=== PATIENT | female | born 1945 | race Caucasian/White ===

== ENCOUNTER 2022-07-03 09:59 | Inpatient (IN) | payer OTHER, MEDICAID ==
[2022-07-03] VITALS (13 sets, daily range): BP systolic 40–163; BP diastolic 19–78
[~2022-07-03] VITALS: Ht 157.5 cm; Wt 62.1 kg
[~2022-07-03 09:59] MED LIST: ETOMIDATE 20 MG/10 ML VIAL IVP ONE; ROCURONIUM 50 MG/5 ML VIAL IV ONE
--- NOTE | 2022-07-03 10:00 | NUR ---
1954 [facility] TO ER BED 10 Addendum: 07/03/22 at 1407 by MEDDM [id number] [facility] TO ER BED 10
--- NOTE | 2022-07-03 10:00 | NUR ---
Patient being evaluated by physician at bedside.
--- NOTE | 2022-07-03 10:04 | NUR ---
77 y/o female biba from [facility], pt had gcs 3 upon amr arrival, pt has 3L removed for dialysis with completion. unknown dates for dialysis. pt here for aloc and respiratory distress, intial call, pt was on 6L NC 100%, amr called back stating they were starting BVM 97% for dyspnea. skin is pink/warm/dry, skin intact. a&o x0, normally a&ox4 per amr, does not ambulate at this time. patient positioned for comfort. hob elevated. bed down. ermd made aware of pt. pmh: dm2, renal dialysis nka
[2022-07-03] MEDS ORDERED: ROCURONIUM 50 MG/5 ML VIAL IV ONE (10:05)
[2022-07-03] MEDS ORDERED: ETOMIDATE 20 MG/10 ML VIAL IVP ONE (10:05)
--- NOTE | 2022-07-03 10:05 | NUR ---
verbal order of rocuronium 100mg and 20g etomidate ivp per marcello blue md, intubation 7.5 size, intial 25 lip.
[2022-07-03] MEDS ORDERED: NOREPINEPHRINE 4 MG/4 ML VIAL IV ONE (10:14)
[2022-07-03] MEDS ORDERED: NOREPINEPHRINE 4 MG in DEXTROSE 5% 250 ML IV ONE (10:20)
[2022-07-03] MEDS ORDERED: VANCOMYCIN 1,000 MG in DEXTROSE 5% 250 ML IV ONE (10:20)
[2022-07-03] MEDS ORDERED: PIPERACILLIN/TAZOBACTAM 3.375 GM in DEXTROSE 5% 50 ML IV ONE (10:20)
--- NOTE | 2022-07-03 10:30 | NUR ---
urinary cath placed, no urine output, unknown if pt still makes urine
--- NOTE | 2022-07-03 10:45 | NUR ---
ET TUBE WAS PULLED BACK 22CM @ LIP. CONFIRMED WITH XRAY, 2.63 ABOVE THE ALEKSANDER.
[2022-07-03 10:48] LABS: BASOPHILS % (AUTO) 0.1 % (0.0-2.0); EOSINOPHILS # (AUTO) 0.1 K/uL (0-0.4); EOSINOPHILS % (AUTO) 0.7 % (0.0-4.0); HEMATOCRIT 37.2 % (36-48); HEMOGLOBIN 11.8 g/dL (12.0-16.0); LYMPHOCYTES # (AUTO) 3.6 K/uL (2.5-16.5); LYMPHOCYTES % (AUTO) 29.2 % (20.5-51.1); MEAN CORPUSCULAR HEMOGLOBIN 29 pg (27-31); MEAN CORPUSCULAR HGB CONC 32 g/dL (33-37); MEAN CORPUSCULAR VOLUME 91.7 fL (80-94); MONOCYTES # (AUTO) 0.8 K/uL (0.8-1.0); MONOCYTES % (AUTO) 6.5 % (1.7-9.3); NEUTROPHILS # (AUTO) 7.8 K/uL (1.8-7.7); NEUTROPHILS % (AUTO) 63.5 % (42.2-75.2); PLATELET COUNT (AUTO) 160 K/uL (140-450); RED BLOOD CELL COUNT(AUTO) 4.06 MIL/uL (4.20-5.40); RED CELL DISTRIBUTION WIDTH 15.3 % (11.6-13.7); WHITE BLOOD COUNT (AUTO) 12.4 K/uL (4.8-10.8)
[2022-07-03 10:59] LABS: PROTHROMBIN TIME 9.8 secs (10.8-13.4)
[2022-07-03 11:03] LABS: ALBUMIN 2.3 g/dL (3.4-5.0); ANION GAP 16.4 (8-16); ASPARTATE AMINOTRANSFERASE 18 U/L (15-37); CARBON DIOXIDE 25.9 mmol/L (21-32); CHLORIDE 99 mmol/L (98-107); GLUCOSE 194 mg/dL (74-106); POTASSIUM 4.3 mmol/L (3.5-5.1); SODIUM SERUM 137 mmol/L (136-145); TOTAL BILIRUBIN 0.4 mg/dL (0.0-1.0); UREA NITROGEN, BLOOD 28 mg/dL (7-18)
[2022-07-03 11:14] LABS: CREATININE 5.4 mg/dL (0.6-1.3)
[2022-07-03] MEDS ORDERED: NACL 0.9% 1,000 ML IV ONE (11:20)
--- NOTE | 2022-07-03 11:34 | NUR ---
pt returned from ct
--- NOTE | 2022-07-03 11:38 | NUR ---
amparo speaking with daughter at bedside at this time
--- NOTE | 2022-07-03 11:46 | NUR ---
@1118 HELPED RN TO TRANSPORT PT TO AND FROM CT. PT TOLERAATED TRANSPORT WELL NO DISTRESS NOTED AT ANYTIME DURING TRANSPORT. @1130 PT WAS BACK IN ER BED 10 ON CURRENT SETTINGS AC/VC 450 16 +5 100%. PT HR 100 SPO2 100%. WILL CONTINUE TO MONITOR.
--- NOTE | 2022-07-03 12:06 | NUR ---
DECREASED PTS. FIO2 FROM 100% DOWN TO 50%. ALSO DECREASED PT'S FLOW FROM 45 TO 35 TO CORRECT I:E RATIO. PT'S SPO2 IS 100%.
[2022-07-03] MEDS ORDERED: PIPERACILLIN/TAZOBACTAM 3.375 GM VIAL IV ONE (13:25)
[2022-07-03] MEDS ORDERED: VANCOMYCIN 1,000 MG VIAL ONE (13:37)
[2022-07-03] MEDS ORDERED: DOCUSATE SODIUM 100 MG GELCAP PO PRN (14:20)
[2022-07-03] MEDS ORDERED: MORPHINE SULFATE 2 MG/ML SYR IVP PRN (14:20)
[2022-07-03] MEDS ORDERED: VANCOMYCIN PER PHARMACY MC PRN (14:20)
[2022-07-03] MEDS ORDERED: ONDANSETRON 4 MG/2 ML VIAL IVP PRN (14:20)
[2022-07-03] MEDS ORDERED: ZOLPIDEM 5 MG TAB PO PRN (14:20)
[2022-07-03] MEDS ORDERED: LORazepam 2 MG/ML VIAL IVP PRN (14:20)
[2022-07-03] MEDS ORDERED: MAG SULF 2000 MG/WATER PREMIX 50 ML IV PRN (14:20)
[2022-07-03] MEDS ORDERED: POTASSIUM CHLORIDE 10 MEQ TABER PO PRN (14:20)
--- NOTE | 2022-07-03 14:25 | NUR ---
DR. JANE PAGED FOR NEW PATIENT CONSULT.
--- NOTE | 2022-07-03 14:30 | NUR ---
PT ARRIVED TO ICU 5. SBAR REPORT RECEIVED FROM TIFFANI BALTAZAR, ALL CARES ASSUMED. ETT TO VENT, ACVC 14, 450, 50%, 5. NGT TO LEFT NARE CLAMPED. JOHNSON CATHETER DRAINING TO GRAVITY WITH NO OUTPUT. RIGHT FEMORAL TRIPLE LUMEN CENTRAL AND RIGHT AC. PT UNRESPONSIVE TO PAINFUL STIMULI.
--- NOTE | 2022-07-03 14:30 | NUR ---
DR. JANE RETURNED CALL. STATED HE SAW PATIENT IN ED. UPDATED ON STATUS. LEVOPHED CURRENTLY OFF. READ CT HEAD REPORT. NO NEW ORDERS.
--- NOTE | 2022-07-03 14:30 | NUR ---
PT. TRANSFERRED FROM ED AND ARRIVED IN ICU ON VENT W/ NURSE BEDSIDE @ 1430 NO DISTRESS NOTED. WILL CONTINUE TO MONITOR SPO2 100%
--- NOTE | 2022-07-03 14:48 | NUR ---
Patient will be admitted to care of Leeroy SÁNCHEZ. Admitted to ICU. Will go to room 105. Belongings list completed. Report to November
[2022-07-03] MEDS: BLOOD GLUCOSE MONITORING 1 DEV DEV FS SCH (18:27)
[2022-07-03] MEDS: INSULIN LISPRO SLIDING SCALE 100 UNITS/ML VIAL SUBQ PRN (18:30)
--- NOTE | 2022-07-03 19:26 | NUR ---
SBAR REPORT GIVEN TO GUZMAN BALTAZAR, ALL CARES ENDORSED.
--- NOTE | 2022-07-03 19:30 | NUR ---
RECEIVED PT. FROM DAY SHIFT, DELANEY STOUT. PT. WITH ALOC/UNRESPONSIVE. MOVE SLIGHTLY HER HEAD. PT. ON ETT TO VENT A/C VC RATE 14, FIO2 25%, TV 450 AND PEEP 5. BILATERAL LUNG SOUNDS CLEAR, DIMINISHED. IV SITE TO RIGHT FEMORAL TRIPLE LUMEN CENTRAL LINE RUNNING NS TKO. LEFT AV SHUNT, HEMODIALYSIS PT.ON SINUS RHYTHM. BOTH EYES WITH CATARACTS AND GLAUCOMA. RIGHT EYE WITH CALCIFIED. LEFT NGT CLAMPED ORDERED. ABDOMEN SOFT AND NON-TENDER. SKIN INTACT. JOHNSON CATHETER TO GRAVITY, IN PLACED AND NOTED NO URINE OUTPUT. ALL SAFETY MEASURES IN PLACE. REPOSITIONED AND PLACED IN COMFORTABLE POSITION. CALL LIGHT WITHIN REACH. NO S/S OF PAIN NOTED AT THIS TIME. WILL CONT. TO MONITOR.
--- NOTE | 2022-07-03 20:51 | NUR ---
DR. SANCHEZ, SYSTEMS ARCHITECT MADE ROUNDS TODAY AT 2046, SEEN PT. AT THE BEDSIDE AND TALKED TO THE FAMILY WHO HAPPENED TO BE AT THE BEDSIDE. NO NEW ORDER MADE. WILL ENDORSE TO THE NEXT SHIFT.
[2022-07-03] MEDS: PIPERACILLIN/TAZOBACTAM 2.25 GM in DEXTROSE 5% 50 ML IV SCH (21:20)
[2022-07-04] VITALS (30 sets, daily range): BP systolic 85–161; BP diastolic 38–66
[2022-07-04] MEDS: BLOOD GLUCOSE MONITORING 1 DEV DEV FS SCH ×4 (00:14→18:57)
[2022-07-04] MEDS: ACETAMINOPHEN 325 MG TAB PO PRN (03:09)
--- NOTE | 2022-07-04 03:09 | NUR ---
PT. OBSERVED TO HAVE A WARM SKIN AND TEMP. TAKEN WITH 101.1. GIVEN TYLENOL 650 MG PRN VIA NGT. PROVIDED COLD COMPRESS TOLERATED. WILL CONT. TO MONITOR.
[2022-07-04] MEDS: PIPERACILLIN/TAZOBACTAM 2.25 GM in DEXTROSE 5% 50 ML IV SCH ×3 (05:03→21:51)
[2022-07-04 06:22] LABS: CARBON DIOXIDE 22.1 mmol/L (21-32); CHLORIDE 102 mmol/L (98-107); GLUCOSE 142 mg/dL (74-106); POTASSIUM 4.1 mmol/L (3.5-5.1); SODIUM SERUM 138 mmol/L (136-145); UREA NITROGEN, BLOOD 30 mg/dL (7-18)
[2022-07-04 06:26] LABS: BASOPHILS % (AUTO) 0.1 % (0.0-2.0); HEMATOCRIT 35.4 % (36-48); HEMOGLOBIN 11.1 g/dL (12.0-16.0); LYMPHOCYTES # (AUTO) 2.1 K/uL (2.5-16.5); LYMPHOCYTES % (AUTO) 11.1 % (20.5-51.1); MEAN CORPUSCULAR HEMOGLOBIN 29 pg (27-31); MEAN CORPUSCULAR HGB CONC 31 g/dL (33-37); MEAN CORPUSCULAR VOLUME 92.4 fL (80-94); MONOCYTES # (AUTO) 1.5 K/uL (0.8-1.0); MONOCYTES % (AUTO) 7.8 % (1.7-9.3); NEUTROPHILS # (AUTO) 15.4 K/uL (1.8-7.7); PLATELET COUNT (AUTO) 182 K/uL (140-450); RED BLOOD CELL COUNT(AUTO) 3.84 MIL/uL (4.20-5.40); RED CELL DISTRIBUTION WIDTH 15.9 % (11.6-13.7)
[2022-07-04 06:29] LABS: CREATININE 5.7 mg/dL (0.6-1.3)
--- NOTE | 2022-07-04 07:15 | NUR ---
SBAR REPORT RECEIVED FROM GUZMAN BALTAZAR, ALL CARES ASSUMED. ETT TO VENT, ACPRVC 14, 450, 25%, 5. JOHNSON CATHETER DRAINING TO GRAVITY. NGT TO L NARE, CLAMPED. PT OPENING EYES, MOVING UPPER EXTREMITIES.BED IN LOW, LOCKED POSITION.
--- NOTE | 2022-07-04 07:19 | NUR ---
ENDORSED CARE, REPORT GIVEN TO DAY SHIFT DELANEY STOUT FOR CONTINUITY OF CARE.
--- NOTE | 2022-07-04 07:40 | NUR ---
RECEIVED PT ON PRVC 450,RR14,+5,25% FIO2. WHEELS ARE LOCKED, AMBUBAG AT BEDSIDE, PLUGGED INTO RED OUTLET, ALARMS ARE SET AND AUDIBLE. PT IS RESTING COMFORTABLY. WILL CONTINUE TO MONITOR.
[2022-07-04] MEDS: hydrALAZINE 10 MG TAB NG SCH (08:31)
[2022-07-04] MEDS: PANTOPRAZOLE 40 MG INJ VIAL IVP SCH (08:33)
--- NOTE | 2022-07-04 09:21 | NUR ---
PATIENT HAS BEEN SCREENED AND CATEGORIZED HIGH NUTRITION RISK. PATIENT WILL BE SEEN WITHIN 1-2 DAYS OF ADMISSION. 07/03/22-07/05/[address] BOTH FNS CONSULT AND REFERRAL RECEIVED FOR TUBE FEEDING.
--- NOTE | 2022-07-04 10:31 | NUR ---
CPAP TRIAL PER DR JANE. PT LASTED 20 MINS ON 05/26. PULLING GOOD VOLUMES AND FOLLOWS COMMANDS. PT TRIGGERED THE BACKUP SETTING OF PRVC 450,RR14,+5,25% DUE TO FATIGUE. PT RESTING COMFORTABLY. WILL CONTINUE TO MONITOR.
--- NOTE | 2022-07-04 10:39 | NUR ---
07/04/2022 RD INITIAL ASSESSMENT COMPLETED. PLEASE REFER TO NUTRITION ASSESSMENT UNDER CARE ACTIVITY FOR ESTIMATED NUTRITIONAL NEEDS. 1.WHEN/IF MEDICALLY APPROPRIATE, RECOMMEND NEPRO WITH CARBSTEADY WITH A GOAL RATE OF 45 ML/HR -FWF 240ML Q6H -START AT 10ML/HR AND INCREASE BY 10 ML Q4H PT TOLERATES UNTIL GOAL RATE IS REACHED -THIS WILL PROVIDE 1944 KCAL, 87 GRAMS PROTEIN, AND 785 ML FREE WATER, MEETING 100% OF ESTIMATED ENERGY NEEDS; ADEQUATE. 2.MONITOR NPO STATUS 3.RD TO FOLLOW-UP IN 2-3 DAYS PATIENT IS HIGH RISK. ESTELITA CLARK RD
[2022-07-04] MEDS: DEXMEDETOMIDINE HCL 400 MCG in NACL 0.9% 96 ML IV PRN (11:34)
[2022-07-04] MEDS: INSULIN LISPRO SLIDING SCALE 100 UNITS/ML VIAL SUBQ PRN (13:12)
--- NOTE | 2022-07-04 19:26 | NUR ---
SBAR REPORT GIVEN TO GUZMAN BALTAZAR, ALL CARES ENDORSED.
--- NOTE | 2022-07-04 19:33 | NUR ---
RECEIVED PT. FROM DAY SHIFT, DELANEY STOUT. PT. CONT. ON ETT TO VENT A/C PRVC RATE 14, TV 450, FIO2 75%, PEEP 8 AND O2 SAT 96%. PT. BILATERAL LUNGS DIMINSHED SOUNDS. EYES PERRL. ABDOMINAL SOUNDS HYPOACTIVE. RIGHT NARE NGT TO LOW INTERMIITENT SUCTION. SINUS TACHYCARDIA IN THE MONITOR. IV TO RIGHT ARM PICC LINE PATENT AND INTACT, NO S/S OF INFECTION. IVRUNNING PROPOFOL DRIP AT 30 MCG/KG/MIN, LEVOPHED 5 MCG/MIN. SKIN INTACT. ON BILATERAL SOFT WRIST RESTRAINT ORDERED. SITE NO S/S OF POOR CIRCULATION. NO S/S OF INJURY. BEDLOCK AND PLACED BED IN THE LOWEST HEIGHT. REPOSITION AND PLACED COMFORTABLY IN BED. NO S/S OF PAIN AT THIS TIME. WILL CONT. TO MONITOR. Addendum: 07/04/22 at 1943 by Reyna Cole RN CORRECTION: WRONG PT.
--- NOTE | 2022-07-04 19:43 | NUR ---
ENDORSED CARE, RECEIVED PT. FROM DAY SHIFT DELANEY STOUT. PT. AWAKE AND MOVE HER HEAD AT TIMES. WHEN ASKED, SEEMS LIKE SLIGHTLY UNDERSTAND SIMPLE COMMANDS. CONT. ON ETT TO VENT A/C VC RATE 14, TV 450, FIO2 25%, PEEP 5 AND O2 SAT 98%. BILATERAL LUNG SOUNDS DIMINSHED. BILATERAL EYES BLIND, CATARACTS AND GLAUCOMA WITH RIGHT EYE CALCIFIED. NGT TO LEFT NARE AND ORDERED, WILL BE STARTING NEPRO FEEDING WITH THE GOAL OF 45 ML/HR, 240 WATER FLUSH EVERY 6 HR. SINUS RHYTHM ON THE MONITOR. IV TO RIGHT FEMORAL TRIPLE LUMEN CENTRAL LINE CATHETER PATENT AND INTACT. INFUSING PRECEDEX 0.3 MCG/KG/HR, LEVOPHED DRIP 2 MCG/MIN AND NS TKO. JOHNSON CATHETER IN PLACED, DRAINING MINUTE URINE OUTPUT, URINE CLOUDY,CRAMY, STEVO WITH SEDIMENTS. SKIN INTACT. ON BILATERAL SOFT WRIST RESTRAINT. SITE NO S/S OF POOR CIRCULATION. NO S/S OF INJURY. PROVIDED SAFE AND QUIET ENVIRONMENT. NO S/S OF PAIN AND WILL CONT. TO MONITOR.
--- NOTE | 2022-07-04 20:00 | NUR ---
P. 2 DAUGHTERS CAME TO VISIT. ASKED QUESTIONS AND PROVIDED THEM UPDATE WITH PT. CURRENT CONDITION.
--- NOTE | 2022-07-04 20:25 | NUR ---
DR. SANCHEZ (MAKEUP ARTISTRY INSTRUCTOR) MADE ROUNDS AT 2023, CHECKED PT. AT THE BEDSIDE. NO NEW ORDER MADE.
[2022-07-05] VITALS (32 sets, daily range): BP systolic 94–169; BP diastolic 38–69
--- NOTE | 2022-07-05 00:17 | NUR ---
JOSEFINA, TREATMENT PLANT MECHANIC CALLED AND ASKED IF PT. WILL HAVE DIALYSIS TOMORROW. NOTIFIED HARVEST FIELD TICKETER THAT PER ORDERED BY DR. SANCHEZ, HEMODIALYSIS TOMORROW SCHEDULE AT 0700. I CALLED THE DAUGHTER POLO TO GET A CONSENT, ONLY VOICEMAIL AND I LEFT A MESSAGE. I ALSO CALLED CLAUDINE TO GET A CONSENT AND LEFT A MESSAGE TO TO THE VOICEMAIL WELL. WILL WAIT FOR THEIR CALL.
[2022-07-05] MEDS: INSULIN LISPRO SLIDING SCALE 100 UNITS/ML VIAL SUBQ PRN ×2 (00:34→12:47)
[2022-07-05] MEDS: BLOOD GLUCOSE MONITORING 1 DEV DEV FS SCH ×4 (00:37→17:29)
--- NOTE | 2022-07-05 04:20 | NUR ---
PT. DAUGHTER, CLAUDINE ORTIZ RETURNED MY CALL AND ABLE TO OBTAINED CONSENT FOR PT. HEMODIALYSIS. WITNESSED BY AURE, CHARGE NURSE RN. NO FURTHER QUESTION ASKED. WILL ENDORSE TO THE NEXT SHIFT.
--- NOTE | 2022-07-05 04:32 | NUR ---
LAB DRAWN CBC, BMP, MG, HEPATITIS COMPREHENSIVE PANEL. WILL ENDORSE TO NEXT SHIFT.
[2022-07-05] MEDS: PIPERACILLIN/TAZOBACTAM 2.25 GM in DEXTROSE 5% 50 ML IV SCH ×3 (05:01→21:18)
[2022-07-05] MEDS ORDERED: DEXMEDETOMIDINE HCL 100 MCG/ML 2 ML VIAL IV ONE (05:10)
[2022-07-05] MEDS: DEXMEDETOMIDINE HCL 400 MCG in NACL 0.9% 96 ML IV PRN (05:17)
[2022-07-05 05:57] LABS: EOSINOPHILS # (AUTO) 0.1 K/uL (0-0.4); EOSINOPHILS % (AUTO) 1.1 % (0.0-4.0); HEMATOCRIT 30.6 % (36-48); HEMOGLOBIN 9.7 g/dL (12.0-16.0); LYMPHOCYTES # (AUTO) 1.9 K/uL (2.5-16.5); LYMPHOCYTES % (AUTO) 15.9 % (20.5-51.1); MEAN CORPUSCULAR HEMOGLOBIN 29 pg (27-31); MEAN CORPUSCULAR HGB CONC 32 g/dL (33-37); MEAN CORPUSCULAR VOLUME 91.9 fL (80-94); MONOCYTES # (AUTO) 1.1 K/uL (0.8-1.0); MONOCYTES % (AUTO) 8.6 % (1.7-9.3); NEUTROPHILS # (AUTO) 9.1 K/uL (1.8-7.7); NEUTROPHILS % (AUTO) 74.4 % (42.2-75.2); PLATELET COUNT (AUTO) 138 K/uL (140-450); RED BLOOD CELL COUNT(AUTO) 3.34 MIL/uL (4.20-5.40); RED CELL DISTRIBUTION WIDTH 15.4 % (11.6-13.7); WHITE BLOOD COUNT (AUTO) 12.2 K/uL (4.8-10.8)
[2022-07-05 06:58] LABS: ANION GAP 18.1 (8-16); CARBON DIOXIDE 23.9 mmol/L (21-32); CHLORIDE 101 mmol/L (98-107); GLUCOSE 115 mg/dL (74-106); SODIUM SERUM 139 mmol/L (136-145); UREA NITROGEN, BLOOD 36 mg/dL (7-18)
[2022-07-05 07:02] LABS: CREATININE 6.9 mg/dL (0.6-1.3)
--- NOTE | 2022-07-05 07:30 | NUR ---
RECEIVED PT ON PRVC 450,RR14,+5,24%. VENT PLUGGED INTO RED OUTLET, WHEELS ARE LOCKED, AMBUBAG AT BEDSIDE, ALARMS ARE SET AND AUDIBLE. PT SATURATION IS 98%.
--- NOTE | 2022-07-05 07:33 | NUR ---
REPORT GIVEN TO DELANEY GLEASON FOR CONTINUITY OF CARE.
--- NOTE | 2022-07-05 08:56 | NUR ---
PT. WITH LOW DEWEY SCALE AT HIGH RISK, CONTINUE TO FOLLOW PRESSURE INJURY PREVENTION INTERVENTIONS. -POSITIONING: TURN AND REPOSITION PATIENT Q 2H OR SOONER USE PILLOWS TO KEEP BONY PROMINENCES FROM DIRECT CONTACT WITH SURFACES USE REPOSITIONING WEDGES TO PROVIDE 30-DEGREE ANGLE FOR SIDE LYING POSITIONS OFFLOADING OR FOAM DRESSING TO ALL TUBING TO PREVENT MEDICAL DEVICES RELATED PRESSURE INJURY -RE-EVALUATING AND MANAGING INCONTINENCE MONITOR SKIN CONDITION DURING POSITION CHANGE DO NOT MASSAGE REDNESS, BONY PROMINENCES FREQUENT KAREEM-CARE AND PROVIDE BARRIER CREAMS PRN IF SOILING MOISTURE CONTROL BY OFFER BED MILLS/URINAL /ABSORBENT PAD TO WICK AND HOLD MOISTURE KEEP SKIN DRY AND PROTECT FROM FRICTION -MANAGE FRICTION/SHEAR/MOBILITY KEEP HOB AT THE LOWEST LEVEL OF ELEVATION NO MORE THAN 30 DEGREE UNLESS OTHERWISE CONTRAINDICATED USE LIFT SHEET OR TRANSFER DEVICE TO MOVE PATIENT AND PREVENT LATERAL SHEER. PROTECT HEELS, ELBOWS BONY PROMINENCES WITH SKIN BERRIES OR FOAM DRESSING IF EXPOSED TO FRICTION OFFLOAD BILATERAL HEELS BY PLACING PILLOWS UNDER CALVES AT ALL TIMES, UNLESS OTHERWISE CONTRAINDICATED -PRESSURE REDISTRIBUTION SURFACE THERAPY GABRIELA ISOFLEX MATTRESS -NUTRITION: PLEASE FOLLOW RD RECOMMENDATIONS AND OFFER NUTRITION SUPPLEMENTS IF ORDERED. PLEASE CONTACT WOUND CARE NURSE FOR ANY QUESTION AND CHANGE OF WOUND CONDITION.
[2022-07-05] MEDS: hydrALAZINE 10 MG TAB NG SCH (10:00)
[2022-07-05] MEDS: PANTOPRAZOLE 40 MG INJ VIAL IVP SCH (10:07)
--- NOTE | 2022-07-05 10:54 | NUR ---
1030 CPAP TRAIL WITH PT. SETTING 07/26. SHE LASTED 10 MINUTES BEFORE TRIGGERING THE BACKUP SETTINGS OF PRVC 450,RR14,+5,24%. TRIED ANOTHER CPAP AND PT LASTED ANOTHER 10 MINUTES. SHE IS CURRENTLY ON PRVC 450. 14,+5, 24%. PT WAS RESPONSIVE AND FOLLOWS COMMANDS.SATURATION IS 99%. HER VOLUME RANGED FROM 500-900, RSBI OF 20. WILL CONTINUE TO MONITOR
--- NOTE | 2022-07-05 11:10 | NUR ---
DC PLANNIN YRS OLD FEMALE PATIENT WAS ADMITTED FROM HOME WITH A DX OF SEPSIS, RESP DISTRESS AND ALOC. PATIENT HAS A HX OF DM, ESRD ON HEMODIALYSIS . CXR SHOWED NO ACUTE CARDIOPULMONARY DISEASE .CT HEAD NEGATIVE. RAPID COVID TEST NEGATIVE. INTUBATED SEDATED ON PRECEDEX AND LEVOPHED DRIPS, IVF, IV ABX ZOSYN. CONSULTED WITH NEPHRO AND PULMO. DC PLAN PER PATIENT RESPOND TO THE TREATMENT. CM TO FOLLOW Addendum: 07/19/22 at 1608 by Elizabeth Reid RN DC PLANNING: FAXED THE ORDER TO [facility]. CM TO FOLLOW Addendum: 07/21/22 at 1141 by Elizabeth Reid RN DC PLANNING: CALLED [facility] [phone] SPOKE WITH SHO TOW MOTOR DRIVER STATED RECEIVED THE FAX ON TUESDAY BUT THEY ARE TOO BUSY AND DIDN'T REVIEW IT, PER SHO WILL CALL SOON ITS REVIEWED. CALLED [facility] BURT LEFT A MESSAGE. CALLED [facility] LEFT A MESSAGE FOR TOW MOTOR DRIVER. PATIENT IS ON RESTRAINTS NOTIFIED MD PAUL PAGE. CM TO FOLLOW. Addendum: 07/22/22 at 1429 by Elizabeth Reid RN DC PLANNING: CALLED [facility] [phone] SPOKE WITH OLIVER STATED IT'S STILL UNDER REVIEW, BECAUSE OF SHORT STAFF THE DON IS ON THE UNIT TAKING CARE OF THE PATIENT AND WILL CALL BACK ONCE ITS REVIEWED. CM TO FOLLOW Addendum: 07/22/22 at 1459 by Elizabeth Reid RN DC PLANNING: CALLED DR PA AND DISCUSSED THE DELAY FOR THE CHAIR TIME AT [facility] PER MD WILL CALL TO GET THE CHAIR TIME. CM TO FOLLOW Addendum: 07/29/22 at 1129 by Elizabeth Reid RN DC PLANNING: RECEIVED A CALL FROM RANDALL LAWS AT [facility] STATED THEY RECEIVED THE HUA FROM [facility] , THE ADMIN IS REVIEWING IT AND WILL CALL US BACK. ARRANGED OUT PATIENT DIALYSIS WITH [facility] THE CHAIR TIME WILL BE TUESDAY, TUESDAY AND TUESDAY 7AM. DC PLAN AWAITING FOR BED. CM TO FOLLOW. Addendum: 07/29/22 at 1622 by Elizabeth Reid RN DC PLANNING: RECEIVED A CALL FROM ABBE AT [facility] STATED THEY ARE UNABLE TO TAKE PATIENT BECAUSE THE [facility] ARE NOT COVERING THE DIALYSIS TRANSPORT AND THE ONLY WAY TO TELL FAMILY TO CHANGE THE PLAN TO MANAGED CARE SUCH [facility]. CALLED [facility] SPOKE WITH TAVIA STATED THEY CAN GIVE AUTH BUT THERE IS A CO PAY THAT THE FAMILY OR SUBACUTE CAN COVER. [facility]ED [facility] SPOKE WITH MIKE STATED HE DOESN'T TRANSPORT DIALYSIS PATIENT ANYMORE BECAUSE MEDICAL WONT COVER THE TRANSPORT. CALLED [facility] SPOKE WITH ELIZABET STATED THEY DON'T TAKE [place] PATIENT BECAUSE THEY HAVEN'T PAY THEM BEFORE AND TERMINATED THEIR CONTRACT. CALLED [facility] [phone] SPOKE WITH POLO STATED THEY HAVE 6 PATIENTS WAITING FOR THE BED HOWEVER [facility] WON'T COVER DIALYSIS AND PT HAS TO BE [facility] OR [facility]. CALLED [facility] [phone] STATED NO BED AVAILABLE CAN NOT TAKE [facility]. CM/SW MET PT'S FAMILY DISCUSSED THE ISSUES AND CONCERN. DAUGHTER RAGHU WILL CALL [facility] TODAY TO CHANGE THE MEDICAL PLAN. CM TO FOLLOW Addendum: 07/30/22 at 1629 by Elizabeth Reid RN DC PLANNING: CALLED [facility] SPOKE WITH SHO NOTIFIED HER THAT UNABLE TO FIND ANY TRANSPORT TO COVER AND IF THEY CAN HELP US WITH THE TRANSPORT SUCH [facility] CAN PROVIDE THE TRANSPORT, PER SHO PREVIOUS SW USED TO HAVE SOME CONTACT HOWEVER THEIR CARTRIDGE LOADING OPERATOR IS NEW AND HAS NO CONTACT WITH [facility] DOESN'T KNOW ANY BUT WILL TRY TO MENTION IT TO CARTRIDGE LOADING OPERATOR. FAXED THE [facility] ORDER FOR VENT WEANING TO RACHEAL LAWS TO FOLLOW Addendum: 08/02/22 at 1733 by Elizabeth Reid RN [place] PLANNING: DAVE SPRINGER SPOKE WITH [facility] FAXED ALL THE LATEST CLINICALS. PER [facility] NO BED AVAILABLE TO ANY OF [place] [facility]. VETO SPOKE WITH DR THIERNO GUTIERRES SEAM PRESS OPERATOR REGARDING THE PROBLEM WITH TRANSPORTATION PER DR PA WILL CONTACT THE [facility] AND WILL CALL US BACK. CM TO FOLLOW Addendum: 08/04/22 at 1532 by Sharmaine Loya CM REFERRAL SENT TO [facility] FOR [facility]. WILL FOLLOW UP.
[2022-07-05] MEDS: EPOETIN ALFA-EPBX 4,000 UNITS/ML VIAL IV SCH (13:14)
--- NOTE | 2022-07-05 13:30 | NUR ---
PATIENT'S CLOTHINGS OF TOP & BOTTOM WITH ROBE WAS SENT HOME WITH DAUGHTER RAGHU.
--- NOTE | 2022-07-05 15:00 | NUR ---
CPAP/PS TRIAL, TOLERATED 10 MINUTES & 10 MINUTES 12/31 PRECEDEX WAS DECREASED FROM 0.3 MCG/KG/HR. INTO 0.2 MCG. PT. WAS NODDING WHEN SPOKEN BY 2 DAUGHTERS. KEPT RESTRAINED. STARTED ON CPAP/PS, TOLERATED & WAS RESTARTED ON AC/PRVC FROM PATIENT'S RESPIRATORY EFFORT, THEN RE-TRIED ANOTHER 10 MINUTES TOLERATED FOR A TOTAL OF 20 MINUTES UNTIL SWITCHED BACK TO AC/PRVC. PRECEDEX WAS STOPPED. PATIENT AND 2 DAUGHTERS INFORMED.
--- NOTE | 2022-07-05 16:30 | NUR ---
HEMODIALYSIS DONE TODAY REMOVED 2 LITERS FOR 3 HOURS. TOLERATED. NO VASOPRESSORS.
[2022-07-05] MEDS ORDERED: VANCOMYCIN 500 MG in NACL 0.9% 100 ML IV SCH (17:00)
--- NOTE | 2022-07-05 19:30 | NUR ---
RECEIVED RPORT FROM DELANEY GLEASON PT IS LYING IN SUPINE POSITION ON A VENTILTOR. SHE HAS A 7.[address] AND SHE DROPPED HER SPO2 TO 74-79. SHE WAS ON 24% FIO2 . ABOOST O 100% WS GIVEN AND SHE CAME BACK TO 100% TRIED SUCTIONING PT BUT NO MUCOUS RETURNED.
--- NOTE | 2022-07-05 19:30 | NUR ---
REPORT TO GIVEN TO NIGHT RN ANNITA, PT.INTUBATED, RESTRAINED, NO SEDATION, NODS WHEN TALKED TO IN ROMANSH BY FAMILY & IN BENGALI BY RN. HEMODIALYSIS DONE TODAY FOR 3 HOURS & REMOVED 2 LITERS. NO LEVOPHED. BM X 1. URINE ONLY 30 MLS.
[2022-07-06] VITALS (31 sets, daily range): BP systolic 99–167; BP diastolic 45–73
[2022-07-06] MEDS: BLOOD GLUCOSE MONITORING 1 DEV DEV FS SCH ×4 (00:09→18:35)
[2022-07-06] MEDS: INSULIN LISPRO SLIDING SCALE 100 UNITS/ML VIAL SUBQ PRN ×4 (00:12→18:23)
[2022-07-06 05:26] LABS: BASOPHILS % (AUTO) 0.1 % (0.0-2.0); EOSINOPHILS # (AUTO) 0.1 K/uL (0-0.4); EOSINOPHILS % (AUTO) 0.6 % (0.0-4.0); HEMATOCRIT 29.2 % (36-48); HEMOGLOBIN 9.6 g/dL (12.0-16.0); LYMPHOCYTES # (AUTO) 2.7 K/uL (2.5-16.5); LYMPHOCYTES % (AUTO) 21.6 % (20.5-51.1); MEAN CORPUSCULAR HEMOGLOBIN 30 pg (27-31); MEAN CORPUSCULAR HGB CONC 33 g/dL (33-37); MEAN CORPUSCULAR VOLUME 91.2 fL (80-94); MONOCYTES # (AUTO) 1.6 K/uL (0.8-1.0); MONOCYTES % (AUTO) 12.6 % (1.7-9.3); NEUTROPHILS # (AUTO) 8.1 K/uL (1.8-7.7); NEUTROPHILS % (AUTO) 65.1 % (42.2-75.2); PLATELET COUNT (AUTO) 143 K/uL (140-450); RED BLOOD CELL COUNT(AUTO) 3.21 MIL/uL (4.20-5.40); RED CELL DISTRIBUTION WIDTH 15.5 % (11.6-13.7); WHITE BLOOD COUNT (AUTO) 12.4 K/uL (4.8-10.8)
[2022-07-06] MEDS: PIPERACILLIN/TAZOBACTAM 2.25 GM in DEXTROSE 5% 50 ML IV SCH ×3 (05:48→21:33)
[2022-07-06 06:42] LABS: ANION GAP 15.5 (8-16); CARBON DIOXIDE 29.2 mmol/L (21-32); CHLORIDE 100 mmol/L (98-107); GLUCOSE 157 mg/dL (74-106); POTASSIUM 3.7 mmol/L (3.5-5.1); SODIUM SERUM 141 mmol/L (136-145); UREA NITROGEN, BLOOD 16 mg/dL (7-18)
--- NOTE | 2022-07-06 07:19 | NUR ---
TEXT SENT TO DR. CHENG THAT HE DON'T HAVE TO SEE THE PATIENT.
--- NOTE | 2022-07-06 07:30 | NUR ---
RECEIVED PATIENT FROM NIGHT DELANEY ARIZA, INTUBATED, RESTRAINED BOTH WRISTS, PRECEDEX AT 0.2 MCG/KG/HR, RESTARTED EARLY THIS AM AT 0400AM. NEPRO TUBE FEEDING, HEMODIALYSIS DONE 07/05/2022 YESTERDAY.
--- NOTE | 2022-07-06 09:00 | NUR ---
DR. SOTO (PULHI) CAME INFORMED OF THE WEANING CPAP/PS VENT.TRIALS OF 10 MIN+ 10 MIN. (TOTAL OF 20 MINUTES) YESTERDAY TOLERATED. MD ORDERED TO DO WEANING TOLERATED TODAY, EVENTUALLY TOLERATED WEANING, WILL DO ABG. WILL BE DIALYZED TOMORROW, AND WEANED TOTALLY UNTIL EXTUBATION.
[2022-07-06 09:08] LABS: HEPATITIS A ANTIBODY IGM Negative (Negative); HEPATITIS B CORE AB TOTAL Negative (Negative); HEPATITIS B SURFACE ANTIBODY Reactive (.); HEPATITIS B SURFACE ANTIGEN Negative (Negative)
--- NOTE | 2022-07-06 09:21 | NUR ---
DC PLANNING LATE ENTRY. PT SEEN 07/05 AT 11;45AM PT CURRENTLY INTUBATED, SPOKE WITH POLO ORTIZ (PTS DAUGHTER) AT BEDSIDE WHO REQUESTED SW CALL CLAUDINE ORTIZ TO GATHER COLLATERAL INFORMATION CLAUDINE SPOKE YI AND WOULD COMMUNICATE ON FAMILY BEHALF. SW OUTREACHED TO CLAUDINE ORTIZ, WHO REPORTS PATIENT RESIDES IN A SINGLE STORY HOME WITH POLO ORTIZ, AT THE ADDRESS LISTED ON FILE. CLAUDINE IDENTIFIED HERSELF, AND POLO ORTIZ, DAUGHTER, PT EMERGENCY CONTACT. CLAUDINE REPORTS PT MEETS WITH PCP, DR BAEZ NEEDED, LAST VISIT; 2 WEEKS AGO. PATIENT IS REPORTED TO BE MEDICATION COMPLIANT AND DENIES BARRIERS IN ACCESS TO NEEDED MEDICATIONS. PT RECEIVES MEDICATION FROM [facility] IN [place], WHEN NEEDED. PT IS REPORTED TO BE PRIMARILY BED BOUND AND IS TOTAL CARE AT HOME. PT HAS ABILITY TO MAKE NEEDS KNOWN. CARE PROVED BY PTS DAUGHTER POLO ORTIZ WELL EXTENDED FAMILY MEMBERS. CLAUDINE REPORTS CARE HAS INCREASINGLY BECOME DIFFICULT AND FAMILY ARE HAVING THOUGHTS OF PUTTING PT ON HOSPICE. TOOTIE ENCOURAGED PT TO SPEAK WITH PT'S DR TO SEE IF PT IS CANDIDATE FOR HOSPICE CARE, CLAUDINE AGREED AND REPORTED SHE WOULD SPEAK TO FAMILY. PT IS REPORTED TO HAVE DIABETES THAT IS WELL MANAGED. CLAUDINE REPORTS ADEQUATE FOOD IN THE HOME. PT IS REPORTED TO RECEIVE DIALYSIS TX WITH [facility], ON AT 4:30AM. SC PLAN IS FOR PT TO RETURN HOME WHEN MEDICALLY STABLE. TOOTIE INQUIRED ON RESOURCES NEEDED, CLAUDINE DECLINED. PROVIDED CLAUDINE WITH DIRECT LINE IN THE EVENT ANY QUESTIONS SHOULD ARISE. NO HX OF SNF, HH, OR HOSPICE SERVICES REPORTED. Addendum: 07/06/22 at 0923 by Robby GATES Amended: Links added.
[2022-07-06] MEDS: PANTOPRAZOLE 40 MG INJ VIAL IVP SCH (09:29)
[2022-07-06] MEDS: hydrALAZINE 10 MG TAB NG SCH (09:55)
--- NOTE | 2022-07-06 10:30 | NUR ---
DR. SPENCE CAME, NO NEW ORDERS.
--- NOTE | 2022-07-06 10:45 | NUR ---
DR. AL (RENAL) CAME NOTED, OFF LEVOPHED GTT SINCE YESTERDAY. FOR HEMODIALYSIS TOMORROW 07/07/2022.
--- NOTE | 2022-07-06 11:43 | NUR ---
PER PULMONARY PHYSICIAN PT PLACED ON SBT CPAP 5 PS 10 AND FIO2 24%. NURSE AWARE. ALARMS ON AND FUNCTIONING. WILL CONTINUE TO MONITOR.
--- NOTE | 2022-07-06 12:00 | NUR ---
PT FAILED SBT, MULTIPLE TIMES PT BECAME APNEIC, INADEQUATE VT. NURSE MADE AWARE. PT RETURNED TO FULL SUPPORT MECHANICAL VENTILATION. WILL CONTINUE TO MONITOR.
[2022-07-06] MEDS ORDERED: methylPREDNISolone SS 40 MG/ML VIAL IVP ONE (12:30)
[2022-07-06] MEDS: methylPREDNISolone SS 40 MG/ML VIAL IVP SCH ×2 (13:25→21:34)
--- NOTE | 2022-07-06 14:00 | NUR ---
FNS RECOMMENDED NEPRO TF DECREASED TO 30 MLS/HR + FREE WATER 250 MLS. Q8HRS. FROM [address] SPENCE
--- NOTE | 2022-07-06 16:10 | NUR ---
07/06/22 RD FOLLOW UP COMPLETED PLEASE REFER TO NUTRITION ASSESSMENT UNDER CARE ACTIVITY FOR ESTIMATED NUTRITIONAL NEEDS. 1. RECOMMEND NEPRO @ 30 ML/HR TOLERATED -FWF: 250 ML Q8H OR PER MD -PT WILL RECEIVE 1296 KCAL, 58 GRAMS PROTEIN AND 720 ML VOLUME. THIS MEETS 86% OF PTS ESTIMATED ENERGY NEEDS AND 97% OF ESTIMATED PROTEIN NEEDS; ADEQUATE. 2. MONITOR GI SYMPTOMS. 3. RD TO FOLLOW-UP 3-5 DAYS, MODERATE RISK REVIEWED BY ESTELITA CLARK RD
[2022-07-07] VITALS (28 sets, daily range): BP systolic 103–170; BP diastolic 47–90
[2022-07-07] MEDS: INSULIN LISPRO SLIDING SCALE 100 UNITS/ML VIAL SUBQ PRN ×5 (00:53→23:59)
[2022-07-07] MEDS: PIPERACILLIN/TAZOBACTAM 2.25 GM in DEXTROSE 5% 50 ML IV SCH ×3 (05:01→21:09)
[2022-07-07 05:32] LABS: BASOPHILS % (AUTO) 0.1 % (0.0-2.0); HEMATOCRIT 29.8 % (36-48); HEMOGLOBIN 9.7 g/dL (12.0-16.0); LYMPHOCYTES # (AUTO) 1.2 K/uL (2.5-16.5); LYMPHOCYTES % (AUTO) 13.4 % (20.5-51.1); MEAN CORPUSCULAR HEMOGLOBIN 30 pg (27-31); MEAN CORPUSCULAR HGB CONC 32 g/dL (33-37); MEAN CORPUSCULAR VOLUME 92.1 fL (80-94); MONOCYTES # (AUTO) 0.4 K/uL (0.8-1.0); MONOCYTES % (AUTO) 4.5 % (1.7-9.3); NEUTROPHILS # (AUTO) 7.6 K/uL (1.8-7.7); PLATELET COUNT (AUTO) 145 K/uL (140-450); RED BLOOD CELL COUNT(AUTO) 3.23 MIL/uL (4.20-5.40); RED CELL DISTRIBUTION WIDTH 15.5 % (11.6-13.7); WHITE BLOOD COUNT (AUTO) 9.2 K/uL (4.8-10.8)
[2022-07-07] MEDS: BLOOD GLUCOSE MONITORING 1 DEV DEV FS SCH ×5 (06:06→23:58)
[2022-07-07 06:26] LABS: ANION GAP 14.9 (8-16); CARBON DIOXIDE 30.1 mmol/L (21-32); CHLORIDE 95 mmol/L (98-107); CREATININE 5.3 mg/dL (0.6-1.3); GLUCOSE 333 mg/dL (74-106); SODIUM SERUM 136 mmol/L (136-145); UREA NITROGEN, BLOOD 30 mg/dL (7-18)
--- NOTE | 2022-07-07 07:24 | NUR ---
REPORT GIVEN TO DELANEY GLEASON FOR CONTINUITY OF ARE. ALL QUESTIONS ANSWERED.
[2022-07-07] MEDS: hydrALAZINE 10 MG TAB NG SCH (09:00)
[2022-07-07] MEDS: PANTOPRAZOLE 40 MG INJ VIAL IVP SCH (09:21)
[2022-07-07] MEDS: methylPREDNISolone SS 40 MG/ML VIAL IVP SCH ×2 (09:21→21:09)
[2022-07-07] MEDS: EPOETIN ALFA-EPBX 4,000 UNITS/ML VIAL IV SCH (09:45)
--- NOTE | 2022-07-07 16:00 | NUR ---
FNS NEPRO TF FNS ESTELITA TALKED TO DR. SPENCE, OKAYED TO DECREASE NEPRO TO 30 MLS. /HR + FWF 250 MLS. Q8HRS.
[2022-07-07] MEDS ORDERED: VANCOMYCIN 750 MG in DEXTROSE 5% 250 ML IV SCH (17:00)
[2022-07-07] MEDS: DEXMEDETOMIDINE HCL 400 MCG in NACL 0.9% 96 ML IV PRN (17:57)
--- NOTE | 2022-07-07 19:30 | NUR ---
PT.HANDED OVER TO NIGHT RN GLADIS, PT.INTUBATED, ON CPAP/PS WEANING TOLERATED. NONE DONE TODAY. HEMODIALYSIS DONE TODAY, REMOVED 2LITERS. RESTRAINTS, BOTH WRISTS. FAMILY AT BEDSIDE. PRECEDEX 0.2 MCG/KG/HR. PT. GETS AGITATED AT TIMES. ZOSYN GIVEN WITH HD RN. FOR URINE CULTURE.
--- NOTE | 2022-07-07 19:30 | NUR ---
ASSUMED CARE OF PT.INITIAL ASSESSMENT COMPLETED. SR NOTED ON MONITOR.PT ORALLY INTUBATED AC PRVC FIO2 24% TV450 RATE 14 PEEP 5.W/NGT TO LT NARES PATENT, NO RESIDUALS NOTED.ON CONTINUOUS TUBE FEEDING NEPRO/WATER FLUSH ORDERED.W/TLC TO RT FEMORAL INTACT.WHITE AND BROWN PORT WITH GOOD BLOOD RETURN, BLUE PORT NO BLD RETURN.INFUSING NS AT 5ML/HR AND PRECEDEX DRIP AT 0.2MCG/KG/HR.W/ AV SHUNT TO HANY.W/JOHNSON CATHETER TO BSD DRAINING SCANTY AMT OF LIGHT STEVO URINE,CLOUDY.SKIN INTACT.BED IN LOW POSITION.CALL LIGHT WITHIN REACH.FALL PRECAUTION IN PLACE.FLACC 0.WILL CONTINUE TO CLOSELY MONITOR PT.
--- NOTE | 2022-07-07 20:00 | NUR ---
ORAL CARE USING VAP KIT RENDERED.PT ON DAILY PROTONIX FOR GI PROPHYLAXIS AND HEPARIN FOR DVT PROPHYLAXIS.
--- NOTE | 2022-07-07 21:30 | NUR ---
ALL DUE MEDS GIVEN, FAMILY AT BEDSIDE.UPDATE GIVEN.QUESTIONS ANSWERED.
[2022-07-08] VITALS (23 sets, daily range): BP systolic 112–173; BP diastolic 51–77
--- NOTE | 2022-07-08 | NUR ---
AFEBRILE, BLOOD SUGAR CHECK 316, INSULIN COVERAGE ADMINISTERED ORDERED, WITNESSED BY ANNITA BALTAZAR, ORAL CARE DONE, REPOSITIONED.
--- NOTE | 2022-07-08 02:22 | NUR ---
PT ASLEEP;EASILY AROUSABLE.REFUSED TO BE REPOSITIONED.FLACC 0
[2022-07-08] MEDS: PIPERACILLIN/TAZOBACTAM 2.25 GM in DEXTROSE 5% 50 ML IV SCH ×3 (04:45→21:24)
--- NOTE | 2022-07-08 04:45 | NUR ---
MORNING CARE DONE.ORAL CARE RENDERED.PT TOLERATING.DENIES PAIN WHEN ASKED.REPOSITIONED.
[2022-07-08] MEDS: BLOOD GLUCOSE MONITORING 1 DEV DEV FS SCH ×4 (05:21→23:26)
[2022-07-08] MEDS: INSULIN LISPRO SLIDING SCALE 100 UNITS/ML VIAL SUBQ PRN ×4 (05:21→23:27)
[2022-07-08 05:52] LABS: BASOPHILS % (AUTO) 0.1 % (0.0-2.0); EOSINOPHILS % (AUTO) 0.1 % (0.0-4.0); HEMATOCRIT 32.8 % (36-48); HEMOGLOBIN 10.6 g/dL (12.0-16.0); LYMPHOCYTES # (AUTO) 1.7 K/uL (2.5-16.5); LYMPHOCYTES % (AUTO) 14.7 % (20.5-51.1); MEAN CORPUSCULAR HEMOGLOBIN 30 pg (27-31); MEAN CORPUSCULAR HGB CONC 32 g/dL (33-37); MEAN CORPUSCULAR VOLUME 91.5 fL (80-94); MONOCYTES # (AUTO) 0.9 K/uL (0.8-1.0); MONOCYTES % (AUTO) 7.4 % (1.7-9.3); NEUTROPHILS # (AUTO) 9.1 K/uL (1.8-7.7); NEUTROPHILS % (AUTO) 77.7 % (42.2-75.2); PLATELET COUNT (AUTO) 149 K/uL (140-450); RED BLOOD CELL COUNT(AUTO) 3.58 MIL/uL (4.20-5.40); RED CELL DISTRIBUTION WIDTH 15.4 % (11.6-13.7); WHITE BLOOD COUNT (AUTO) 11.7 K/uL (4.8-10.8)
--- NOTE | 2022-07-08 06:00 | NUR ---
URINE SPEC SENT TO LAB FOR URINE CULTURE/UA.
[2022-07-08 06:10] LABS: ANION GAP 13.3 (8-16); CARBON DIOXIDE 29.9 mmol/L (21-32); CHLORIDE 98 mmol/L (98-107); CREATININE 3.4 mg/dL (0.6-1.3); GLUCOSE 302 mg/dL (74-106); POTASSIUM 4.2 mmol/L (3.5-5.1); SODIUM SERUM 137 mmol/L (136-145); UREA NITROGEN, BLOOD 10 mg/dL (7-18)
--- NOTE | 2022-07-08 06:44 | NUR ---
NGT CLOGGED; REINSERTED TO LT NARES.CXR ORDERED
--- NOTE | 2022-07-08 07:10 | NUR ---
RECEIVED BEDSIDE REPORT FROM DELANEY LOONEY FOR CONTINUITY OF CARE. PT A/OX0, UNABLE TO COMMUNICATE. NODS YES/NO. ETT TO VENT ACPRVC FIO2 24%, VT 450, R 14, PEEP 5. SR ON MONITOR WITH TRIPLE LUMEN CENTRAL LINE TO R FEM INFUSING PRECEDEX AT 0.2 MCG/KG/MIN AND NS TKO. NGT TO L NARE CURRENTLY NOT INFUSING TUBE FEED. F/C TO GRAVITY. MODERATE WEAKNESS THROUGHOUT. STANDARD PRECAUTION. CALL LIGHT WITHIN REACH, BED LOCKED AND IN LOWEST POSITION.
--- NOTE | 2022-07-08 08:14 | NUR ---
PT GRANDDAUGHTER CALLED. UPDATED ON POC. NO FURTHER QUESTIONS AT THIS TIME.
[2022-07-08] MEDS: methylPREDNISolone SS 40 MG/ML VIAL IVP SCH ×2 (09:01→21:24)
[2022-07-08] MEDS: PANTOPRAZOLE 40 MG INJ VIAL IVP SCH (09:01)
[2022-07-08] MEDS: hydrALAZINE 10 MG TAB NG SCH (09:01)
--- NOTE | 2022-07-08 09:06 | NUR ---
SEEN AND EXAMINED BY DR. WARD. NO NEW ORDERS.
[2022-07-08 09:56] LABS: APPEARANCE,URINE CLEAR (CLEAR); BILIRUBIN,URINE NEGATIVE (NEGATIVE); BLOOD, URINE 2+ (NEGATIVE); COLOR,URINE YELLOW (YELLOW); LEUKOCYTE ESTERASE ,URINE 1+ (NEGATIVE); NITRITE, URINE NEGATIVE (NEGATIVE); PH,URINE 8.5 (5.0-9.0); UGLUCOSE 1+ (NEGATIVE)
--- NOTE | 2022-07-08 12:10 | NUR ---
PT TOLERATED ROUGHLY 20 MINS OF CPAP BEFORE VENTILATOR RESET BACK TO ORIGINAL SETTINGS D/T LOW RESPIRATORY RATE.
--- NOTE | 2022-07-08 12:15 | NUR ---
PT HAS MULTIPLE EPISODES OF APNEA. PT EXHIBITS LOW RR BEDSIDE AND WITNESSED VENT PARAMETERS DURING SBT. WILL GIVE PT MULTIPLE ATTEMPTS TO WEAN. PT ABLE TO FOLLOW SIMPLE COMMANDS. FAMILY IS BEDSIDE. WILL CONTINUE TO MONITOR.
--- NOTE | 2022-07-08 12:20 | NUR ---
SEEN AND EXAMINED BY Bharti JOHNSON NO NEW ORDERS AT THIS TIME.
--- NOTE | 2022-07-08 12:45 | NUR ---
PT HAD MODERATE SOFT/LIQUID BROWN BM. CLEANED, TURNED AND REPOSITIONED.
--- NOTE | 2022-07-08 13:00 | NUR ---
AXILLARY TEMP 99.9, PLACED ICE PACKS TO AXILLA. FAMILY AT BEDSIDE.
--- NOTE | 2022-07-08 14:12 | NUR ---
PT TOLERATING SBT AT THIS TIME. VENT ALARMS ON AND FUNCTIONING. NURSE MADE AWARE OF PT STATUS.
--- NOTE | 2022-07-08 16:00 | NUR ---
REASSESSED TEMP, NOW 97.9. ALL COMFORT NEEDS MET AT THIS TIME.
--- NOTE | 2022-07-08 18:30 | NUR ---
FAMILY AT BEDSIDE. TURNED AND REPOSITIONED. ALL COMFORT NEEDS MET AT THIS TIME. FLACC 0.
--- NOTE | 2022-07-08 19:00 | NUR ---
1900: REC'D PT FROM DELANEY MILLER TO ASSUME PLAN OF CARE. ORALLY INTUBATED ON AC/PRVC SETTINGS: TV 450, RATE 14, FI02 24%, PEEP 5 SATS 100%. STABLE VITAL SIGNS. SR, ON PRECEDEX DRIP. PT'S AWAKE, FOLLOWS SIMPLE COMMAND. HAS NGT WITH NEPRO FEEDING AT 30CC/HR WITH 250CC FWF Q8HRS. ON BILAT SWR FOR SAFETY. 1999: ICU SHIFT ASSESSMENT DONE. SUCTIONED, ORAL CARE AND PM CARE RENDERED. SKIN AND SAFETY PROTOCOL ON PROGRESS CONTINUE MONITOR.
--- NOTE | 2022-07-08 19:09 | NUR ---
ENDORSED BEDSIDE REPORT TO DELANEY DAVIES FOR CONTINUITY OF CARE.
[2022-07-09] VITALS (15 sets, daily range): BP systolic 89–160; BP diastolic 38–63
[2022-07-09] MEDS: DEXMEDETOMIDINE HCL 400 MCG in NACL 0.9% 96 ML IV PRN (00:55)
[2022-07-09] MEDS: PIPERACILLIN/TAZOBACTAM 2.25 GM in DEXTROSE 5% 50 ML IV SCH ×3 (04:15→20:48)
[2022-07-09] MEDS: INSULIN LISPRO SLIDING SCALE 100 UNITS/ML VIAL SUBQ PRN ×3 (05:23→18:12)
[2022-07-09] MEDS: BLOOD GLUCOSE MONITORING 1 DEV DEV FS SCH ×3 (05:24→18:09)
[2022-07-09 06:09] LABS: ANION GAP 15.8 (8-16); CARBON DIOXIDE 28.6 mmol/L (21-32); CHLORIDE 95 mmol/L (98-107); CREATININE 4.4 mg/dL (0.6-1.3); GLUCOSE 367 mg/dL (74-106); POTASSIUM 4.4 mmol/L (3.5-5.1); SODIUM SERUM 135 mmol/L (136-145); UREA NITROGEN, BLOOD 41 mg/dL (7-18)
--- NOTE | 2022-07-09 06:31 | NUR ---
0631: NO SIGNIFICANT CHANGES FROM PREVIOUS SHIFT ASSESSMENT. SAME VENT SETTINGS, VERNELL FAIRLY SATS 100%. FEEDING NEPRO AT 30CC WITH FWF 250CC Q8H VERNELL FAIRLY. NO GASTRIC RESIDUAL IS NOTED. HAD 1 LARGE BROWN SOFT BM. NO SIGNS OF DISCOMFORT AND NO RESP DISTRESS. HAD 50CC URINE OUTPUT FROM JOHNSON CATH YELLOW CLEAR COLOR. GIVEN CHG BATH, ORAL CARE, COMPLETE LINEN AND GOWN CHANGED. NO FALLS AND NO INJURY DURING SHIFT. CONTINUE ON BSWR FOR SAFETY. NO SKIN BREAKDOWN IS NOTED, APPLIED MEPELEX ON THE SACRAL PREVENTING SKIN BREAKDOWN. WILL ENDORSE PT TO AM RN TO ASSUME PLAN OF CARE.
--- NOTE | 2022-07-09 07:05 | NUR ---
0700: ENDORSED PT TO AM RN PAUL TO ASSUME PLAN OF CARE. NO APPARENT RESP DISTRESS, RESTING COMFORTABLY. NO SIGNS OF DISCOMFORT.
--- NOTE | 2022-07-09 07:10 | NUR ---
RECEIVED BEDSIDE REPORT FROM DELANEY DAVIES FOR CONTINUITY OF CARE. PT A/OX0, UNABLE TO COMMUNICATE. NODS YES/NO. UNDERSTANDS CHINESE ONLY. ETT TO VENT ACPRVC FIO2 24%, VT 450, R 14, PEEP 5. SR ON MONITOR WITH TRIPLE LUMEN CENTRAL LINE TO R FEM INFUSING PRECEDEX AT 0.3 MCG/KG/MIN AND NS TKO. NGT TO L NARE INFUSING NEPRO TUBE FEEDING AT 30ML/HR FWF 250 Q8H. F/C TO GRAVITY. MODERATE WEAKNESS THROUGHOUT. BILATERAL SOFT WRIST RESTRAINTS IN PLACE, SO S/SX OF INJURY. STANDARD PRECAUTION. CALL LIGHT WITHIN REACH, BED LOCKED AND IN LOWEST POSITION.
--- NOTE | 2022-07-09 07:18 | NUR ---
PT PLACED ON CPAP 07/26 . PT LASTED THREE MINUTES BEFORE GOING APNEIC AND PLACED ON BACK UP SETTINGS. WILL TRY AGAIN IN AN HOUR. RN AWARE OF FAILED TRIAL.
--- NOTE | 2022-07-09 07:50 | NUR ---
SEEN AND EXAMINED BY Kimberly HOLM NO NEW ORDERS.
--- NOTE | 2022-07-09 08:15 | NUR ---
SEEN AND EXAMINED BY DR. WARD. NO NEW ORDERS.
--- NOTE | 2022-07-09 08:35 | NUR ---
TRIED PT ON CPAP FOR THE SECOND TIME TODAY. PT WAS MORE AWAKE AND ALERT. CPAP WAS 12/5. PT ONLY LASTED 3 MINUTES AGAIN BEFORE BACKUP SETTINGS KICKED IN DUE TO APNEA
[2022-07-09] MEDS: PANTOPRAZOLE 40 MG INJ VIAL IVP SCH (08:44)
[2022-07-09] MEDS: methylPREDNISolone SS 40 MG/ML VIAL IVP SCH ×2 (08:44→20:49)
[2022-07-09] MEDS: EPOETIN ALFA-EPBX 4,000 UNITS/ML VIAL IV SCH (08:44)
[2022-07-09] MEDS: hydrALAZINE 10 MG TAB NG SCH ×2 (08:47→12:06)
[2022-07-09 08:59] LABS: BASOPHILS # (AUTO) 0.1 K/uL (0.00-0.22); BASOPHILS % (AUTO) 0.7 % (0.0-2.0); EOSINOPHILS % (AUTO) 0.2 % (0.0-4.0); HEMATOCRIT 34.1 % (36-48); HEMOGLOBIN 11.2 g/dL (12.0-16.0); LYMPHOCYTES # (AUTO) 2.1 K/uL (2.5-16.5); LYMPHOCYTES % (AUTO) 20.2 % (20.5-51.1); MEAN CORPUSCULAR HEMOGLOBIN 30 pg (27-31); MEAN CORPUSCULAR HGB CONC 33 g/dL (33-37); MEAN CORPUSCULAR VOLUME 93.1 fL (80-94); MONOCYTES # (AUTO) 0.9 K/uL (0.8-1.0); MONOCYTES % (AUTO) 8.5 % (1.7-9.3); NEUTROPHILS # (AUTO) 7.3 K/uL (1.8-7.7); NEUTROPHILS % (AUTO) 70.4 % (42.2-75.2); PLATELET COUNT (AUTO) 134 K/uL (140-450); RED BLOOD CELL COUNT(AUTO) 3.66 MIL/uL (4.20-5.40); RED CELL DISTRIBUTION WIDTH 15.4 % (11.6-13.7); WHITE BLOOD COUNT (AUTO) 10.4 K/uL (4.8-10.8)
--- NOTE | 2022-07-09 12:00 | NUR ---
SEEN AND EXAMINED BY Bharti JOHNSON
--- NOTE | 2022-07-09 13:14 | NUR ---
FAMILY AT BEDSIDE. ALL COMFORT NEEDS MET AT THIS TIME.
--- NOTE | 2022-07-09 14:34 | NUR ---
DIALYSIS NURSE AT BEDSIDE.
--- NOTE | 2022-07-09 18:00 | NUR ---
LARGE SOFT/LIQUID BROWN BM. CLEANED, TURNED AND REPOSITIONED. ALL COMFORT NEEDS MET AT THIS TIME.
--- NOTE | 2022-07-09 18:25 | NUR ---
DIALYSIS DONE. 1.5L OUT. PT TOLERATED WELL.
--- NOTE | 2022-07-09 19:10 | NUR ---
ENDORSED BEDSIDE REPORT TO DELANEY GARCIA FOR CONTINUITY OF CARE.
--- NOTE | 2022-07-09 19:15 | NUR ---
RECEIVED PATIENT ON BED; ORALLY INTUBATED AND VENTILATED AT 24% FI02, SO2 98%. SEDATED WITH CONTINUOUS PRECEDEX DRIP AT 0.3 MCG/KG/HR VIA RIGHT GROIN TLC; INTACT; RASS -2. CARDIACSCOPE SHOWS ON SINUS RHYTHM HR 64/MIN NO ARRHYTHMIAS SEEN. ABDOMEN IS SOFT, NON TENDER, HYPOACTIVE BOWEL SOUNDS. ON CONTINOUS TUBE FEEDING NEPRO AT 30 ML/HR VIA NGT TO LEFT NARES. WITH JOHNSON CATH IN SITU TO GRAVITY DRAINAGE BAG, DRAINING TO CLEAR YELLOW URINE OUTPUT; INTACT.
[2022-07-09] MEDS: INSULIN LANTUS 100 UNITS/ML 10 ML VIAL SUBQ SCH (21:00)
--- NOTE | 2022-07-09 22:00 | NUR ---
TURNED AND REPOSITIONED PATIENT;ORAL CARE DONE WITH VAP KIT.
[2022-07-10] VITALS (23 sets, daily range): BP systolic 101–165; BP diastolic 47–69
--- NOTE | 2022-07-10 04:30 | NUR ---
MORNING BED BATH DONE; KEPT CLEAN DRY AND COMFORTABLE.
[2022-07-10] MEDS: PIPERACILLIN/TAZOBACTAM 2.25 GM in DEXTROSE 5% 50 ML IV SCH ×3 (05:35→21:27)
[2022-07-10 06:33] LABS: ANION GAP 11.3 (8-16); CARBON DIOXIDE 29.4 mmol/L (21-32); CHLORIDE 99 mmol/L (98-107); CREATININE 3.1 mg/dL (0.6-1.3); GLUCOSE 220 mg/dL (74-106); POTASSIUM 3.7 mmol/L (3.5-5.1); SODIUM SERUM 136 mmol/L (136-145); UREA NITROGEN, BLOOD 22 mg/dL (7-18)
--- NOTE | 2022-07-10 07:00 | NUR ---
RECEIVED PT ON ACVC 450,RR14,+5,25%FIO2. WHEELS ARE LOCKED, VENT PLUGGED INTO RED OUTLET, AMBUBAG AT BEDSIDE, ALARMS ARE SET AND AUDIBLE. SATURATION 99%. CPAP TRIAL 0745. 07/26/ PT LASTED 15 MINUTES BEFORE BACKUP SETTING KICKED OVER DUE TO APNEA. WILL TRY AGAIN LATER.
[2022-07-10] MEDS: INSULIN LISPRO SLIDING SCALE 100 UNITS/ML VIAL SUBQ PRN ×3 (07:30→17:39)
--- NOTE | 2022-07-10 07:30 | NUR ---
RECEIVED REPORT FROM GLADSI BALTAZAR DOUGHNUT ICER. INSULIN DRIP IS OFF AND GAP IS 11.8. GRACE DING NOTIFIED. NOTIFIED DR GARCIA OF POTASSIUM IS 3.2, TELEPHONE ORDER RECEIVED OKAY TO GIVEN PATASSIUM 40MEQ IV PER CURRENT ORDERS. Addendum: 07/10/22 at 820 by Agency Neha BALTAZAR RN RECEIVED REPORT FROM GLADIS BALTAZAR DOUGHNUT ICER. BASELINE ASSESSMENT COMPLETED. Addendum: 07/10/22 at 821 by Agency DELANEY BALTAZAR NOTE ENTERED REGARDING INSULIN DRIP AND POTASSIUM WRONG PATIENT
[2022-07-10] MEDS: BLOOD GLUCOSE MONITORING 1 DEV DEV FS SCH ×4 (07:35→17:38)
--- NOTE | 2022-07-10 07:45 | NUR ---
RT AT BEDSIDE, CPAP TRIAL STARTED SEE NOTES.
--- NOTE | 2022-07-10 08:00 | NUR ---
PATIENT FAILED WEANING TRIAL, SEE RT NOTES
[2022-07-10] MEDS: methylPREDNISolone SS 40 MG/ML VIAL IVP SCH ×2 (09:00→21:28)
[2022-07-10] MEDS: hydrALAZINE 10 MG TAB NG SCH (09:00)
[2022-07-10] MEDS: PANTOPRAZOLE 40 MG INJ VIAL IVP SCH (09:00)
--- NOTE | 2022-07-10 10:00 | NUR ---
NOTIFIED DR CHENG OF PATIENT HR 56, NO ADDITIONAL ORDERS RECEIVED.
--- NOTE | 2022-07-10 10:00 | NUR ---
DR CHENG AT BEDSIDE EVALUATING PATIENT. UPDATED ON PATIENTS CONDITION
--- NOTE | 2022-07-10 10:05 | NUR ---
DR VERONICA AT BEDSIDE, UPDATED ON PATIENTS CONDITION. NOTIFIED OF PATIENTS HR 56, NO ORDERS RECEIVED.
--- NOTE | 2022-07-10 10:35 | NUR ---
UPDATED DAUGHTER ON TELEPHONE, NOTIFIED PATIENT STABLE CONDITION
[2022-07-10] MEDS ORDERED: VANCOMYCIN 750 MG in DEXTROSE 5% 250 ML IV SCH (11:00)
[2022-07-10] MEDS: DEXMEDETOMIDINE HCL 400 MCG in NACL 0.9% 96 ML IV PRN (11:19)
--- NOTE | 2022-07-10 13:30 | NUR ---
DAUGHTER CLAUDINE ORTIZ SPOKES PERSON FOR PATIENT CALL VIA TELEPHONE. REQUEST NO VISITOR FOR PATIENT EXCEPT HER AND OTHER DAUGHTER POLO UNTIL TUESDAY. STATES INCREASE ANXIETY AND RESTLESSNESS WITH VISITORS AND WANTS TO LIMIT INTERACTIONS WITH PATIENT FOR COMFORT. INFORMED I WOULD NOTIFY SECURITY
--- NOTE | 2022-07-10 13:50 | NUR ---
SAP SECURITY CONSULTANT FOR HOSPITAL AT BEDSIDE, GIVEN INFORMATION AND NAMES OF DAUGHTERS, AND INFORMED HIM THE REQUIRE MADE BY BOTH DAUGHTERS NO VISITOR UNTIL TUESDAY EXCEPT FOR CLAUDINE AND POLO (BOTH DAUGHTERS). HE TOOK NAMES AND NUMBERS OF BOTH DAUGHTERS FOR THE RECORDS.
--- NOTE | 2022-07-10 16:00 | NUR ---
PATIENT RESTING COMFORTABLE, RASS -1 EASY AROUSAL, DOES NOT FOLLOW COMMANDS. CONTINUE CLOSE MONITORING
--- NOTE | 2022-07-10 18:01 | NUR ---
PATIENT OPENS EYES TO VERBAL STIMULI, ABLE TO FOLLOW SIMPLE COMMANDS. ATTEMPTS TO PULL LINE AND TUBES INTERMITTENTLY. BILATERAL SOFT WRIST RESTRAINTS IN PLACE WITH GOOD CMS, NO INJURY. PATIENT REMAINS SAFE WITHOUT INJURY DURING SHIFT.
--- NOTE | 2022-07-10 19:07 | NUR ---
FOUND PATIENT ON AC VC 450 14 +5 24%. PATIENT WAS RESTING COMFORTABLY. SUCTIONED PATIENT AND GOT SMALL AMOUNT OF CLEAR SECRETIONS. BREATH SOUNDS WERE DIMINISHED AT THE BASES. WILL CONTINUE TO MONITOR PATIENT.
[2022-07-10] MEDS: INSULIN LANTUS 100 UNITS/ML 10 ML VIAL SUBQ SCH (21:43)
[2022-07-11] VITALS (23 sets, daily range): BP systolic 97–178; BP diastolic 43–70
[2022-07-11] MEDS: INSULIN LISPRO SLIDING SCALE 100 UNITS/ML VIAL SUBQ PRN ×4 (00:01→18:30)
[2022-07-11] MEDS: DEXMEDETOMIDINE HCL 400 MCG in NACL 0.9% 96 ML IV PRN ×2 (01:13→18:18)
[2022-07-11] MEDS: PIPERACILLIN/TAZOBACTAM 2.25 GM in DEXTROSE 5% 50 ML IV SCH ×3 (04:55→21:30)
[2022-07-11 05:35] LABS: ANION GAP 14.5 (8-16); CARBON DIOXIDE 28.2 mmol/L (21-32); CHLORIDE 97 mmol/L (98-107); GLUCOSE 262 mg/dL (74-106); POTASSIUM 3.7 mmol/L (3.5-5.1); SODIUM SERUM 136 mmol/L (136-145); UREA NITROGEN, BLOOD 35 mg/dL (7-18)
[2022-07-11 06:12] LABS: CREATININE 4.1 mg/dL (0.6-1.3)
[2022-07-11] MEDS: BLOOD GLUCOSE MONITORING 1 DEV DEV FS SCH ×4 (06:35→18:27)
--- NOTE | 2022-07-11 07:07 | NUR ---
TRANSFER OF CARE TO [facility], REPORT GIVEN TO DELANEY MONTGOMERY
--- NOTE | 2022-07-11 07:30 | NUR ---
RECEIVED REPORT FROM DARRYL BALTAZAR DEBUG TECHNICIAN NURSE. BASELINE ASSESSMENT COMPLETED. CHECKED RESIDUALS FOR TUBE FEEDING, ZERO, FLUSHED TUBE WITH RESISTANCE WHEN FLUSHING. TUBE FEEDING CONTINUES TO INFUSE WITHOUT DIFFICULTY. CONTINUE MONITORING.
--- NOTE | 2022-07-11 08:00 | NUR ---
PATIENT AROUSAL TO VERBAL STIMULATION AND ABLE TO FOLLOW SIMPLE COMMANDS. PATIENT CONTINUES TO REACH FOR ETT AND LINES WHILE TURNING. BILATERAL WRIST RESTRAINTS REMAIN IN PLACE WITH GOOD CMS AND NO INJURY. REVIEWED ORDERS AND UP TO DATE.
--- NOTE | 2022-07-11 09:00 | NUR ---
DR CHENG AT BEDSIDE EVALUATING PATIENT. PLAN FOR DIALYSIS 07/12/22
--- NOTE | 2022-07-11 09:10 | NUR ---
UPDATED DAUGHTER VIA TELEPHONE, REQUESTING NO VISITOR UNTIL TUESDAY PER HER REQUEST.
[2022-07-11] MEDS: methylPREDNISolone SS 40 MG/ML VIAL IVP SCH ×2 (09:46→21:31)
[2022-07-11] MEDS: PANTOPRAZOLE 40 MG INJ VIAL IVP SCH (09:46)
[2022-07-11] MEDS: hydrALAZINE 10 MG TAB NG SCH (09:46)
--- NOTE | 2022-07-11 10:40 | NUR ---
DR PHAN AT BEDSIDE EVALUATING PATIENT, RECEIVED ORDER FOR CBC TO CHECK PLT PRIOR TO ADMINISTRATION OF HEPARIN SQ
[2022-07-11 11:02] LABS: BASOPHILS # (AUTO) 0.1 K/uL (0.00-0.22); BASOPHILS % (AUTO) 0.9 % (0.0-2.0); EOSINOPHILS % (AUTO) 0.1 % (0.0-4.0); HEMATOCRIT 34.9 % (36-48); HEMOGLOBIN 11.4 g/dL (12.0-16.0); LYMPHOCYTES # (AUTO) 1.7 K/uL (2.5-16.5); MEAN CORPUSCULAR HEMOGLOBIN 30 pg (27-31); MEAN CORPUSCULAR HGB CONC 33 g/dL (33-37); MEAN CORPUSCULAR VOLUME 92.5 fL (80-94); MONOCYTES # (AUTO) 0.7 K/uL (0.8-1.0); MONOCYTES % (AUTO) 6.8 % (1.7-9.3); PLATELET COUNT (AUTO) 157 K/uL (140-450); RED BLOOD CELL COUNT(AUTO) 3.77 MIL/uL (4.20-5.40); RED CELL DISTRIBUTION WIDTH 15.8 % (11.6-13.7); WHITE BLOOD COUNT (AUTO) 10.5 K/uL (4.8-10.8)
--- NOTE | 2022-07-11 11:06 | NUR ---
REVIEWED CBC RESULTS FROM LAB, PLT 157, MAY GIVEN HEPARIN SQ PER MD ORDERS.
[2022-07-11 11:24] LABS: LYMPHOCYTES % (AUTO) 16.3 % (20.5-51.1); NEUTROPHILS % (AUTO) 75.9 % (42.2-75.2)
--- NOTE | 2022-07-11 13:25 | NUR ---
07/11/22 RD FOLLOW UP COMPLETED. PLEASE REFER TO NUTRITION ASSESSMENT UNDER CARE ACTIVITY FOR ESTIMATED NUTRITIONAL NEEDS. 1. CONTINUE WITH NEPRO @ 30 ML/HR TOLERATED RECOMMENDED 07/06/22 -FWF: 250 ML Q8H OR PER MD -PT WILL RECEIVE 1296 KCAL, 58 GRAMS PROTEIN AND 720 ML VOLUME. THIS MEETS 86% OF PTS ESTIMATED ENERGY NEEDS AND 97% OF ESTIMATED PROTEIN NEEDS; ADEQUATE. 2. MONITOR GASTRIC RESIDUALS. 3. RD TO FOLLOW-UP IN 3-5 DAYS PATIENT IS MODERATE RISK. ESTELITA CLARK RD
--- NOTE | 2022-07-11 15:00 | NUR ---
KUB COMPLETED, CONFIRMATION OF LEFT NARE NGT CONFIRMED, RESTARTED TUBE FEEDING AT 30ML/HR.
--- NOTE | 2022-07-11 16:20 | NUR ---
PT PLACED ON SBT CPAP 5 PS 10 AND FIO2 24%. ALARMS ON AND FUNCTIONING. WILL CONTINUE TO MONITOR.
--- NOTE | 2022-07-11 19:29 | NUR ---
REPORT GIVEN TO DARRYL BALTAZAR NURSE DISCHARGE PLANNER NURSE
--- NOTE | 2022-07-11 19:35 | NUR ---
TRANSFER OF CARE FROM [facility] REPORT RECEIVED FROM DELANEY MONTGOMERY. RECEIVED PATIENT IN BED, INTUBATED AND SEDATED. CURRENT VENT SETTINGS: AC/VC, FIO2 = 24%, VT = 450, RATE = 14, PEEP = 5. PRECEDEZ 0.4MCG/MIN INFUSING IN RIGHT FEMORAL CENTRAL LINE. TUBE FEEDING, RUNNING WITH RATE OF 30ML/HR. PATIENT HAS NG TUBE TO LEFT NARE. PATIENT HAS JOHNSON CATHETER IN PLACE. CURRENT VITALS AT TIME OF TRANSFER OF CARE: HR = 60, O2 = 100%, BP = 101/43, R = 14
--- NOTE | 2022-07-11 20:45 | NUR ---
JOSÉ MIGUEL TO DR SPENCE, PATIENT WITH HYPOTENSION; MOST RECENT BP READIN/39
[2022-07-11] MEDS: NOREPINEPHRINE 8 MG in DEXTROSE 5% 250 ML IV PRN (21:00)
--- NOTE | 2022-07-11 21:00 | NUR ---
RESTARTED LEVOPHED AT 2MCG/MIN TO MAINTAIN SBP ABOVE 90 MMHG
--- NOTE | 2022-07-11 21:24 | NUR ---
PATIENT NOTED WITH LARGE AMOUNTS OF THICK SPUTUM, COMING OUT OF MOUTH AND FALLING ONTO CHIN, RT NOTIFIED
[2022-07-11] MEDS: INSULIN LANTUS 100 UNITS/ML 10 ML VIAL SUBQ SCH (21:35)
[2022-07-12] VITALS (31 sets, daily range): BP systolic 76–179; BP diastolic 37–80
[2022-07-12] MEDS: BLOOD GLUCOSE MONITORING 1 DEV DEV FS SCH ×4 (00:11→17:45)
[2022-07-12] MEDS: INSULIN LISPRO SLIDING SCALE 100 UNITS/ML VIAL SUBQ PRN ×4 (00:17→17:47)
[2022-07-12 06:10] LABS: ANION GAP 17.8 (8-16); CARBON DIOXIDE 25.7 mmol/L (21-32); CHLORIDE 97 mmol/L (98-107); GLUCOSE 238 mg/dL (74-106); POTASSIUM 3.5 mmol/L (3.5-5.1); SODIUM SERUM 137 mmol/L (136-145); UREA NITROGEN, BLOOD 49 mg/dL (7-18)
[2022-07-12 06:15] LABS: CREATININE 5.1 mg/dL (0.6-1.3)
--- NOTE | 2022-07-12 07:20 | NUR ---
TRANSFER OF CARE TO [facility], REPORT GIVEN TO DELANEY GLEASON
[2022-07-12] MEDS: PIPERACILLIN/TAZOBACTAM 2.25 GM in DEXTROSE 5% 50 ML IV SCH ×3 (07:30→21:24)
[2022-07-12] MEDS: PANTOPRAZOLE 40 MG INJ VIAL IVP SCH (08:47)
[2022-07-12] MEDS: EPOETIN ALFA-EPBX 4,000 UNITS/ML VIAL IV SCH (08:48)
[2022-07-12] MEDS: methylPREDNISolone SS 40 MG/ML VIAL IVP SCH ×2 (08:48→21:23)
[2022-07-12] MEDS: hydrALAZINE 10 MG TAB NG SCH (08:48)
[2022-07-12 12:31] LABS: HEMATOCRIT 37.9 % (36-48); HEMOGLOBIN 12.5 g/dL (12.0-16.0); MEAN CORPUSCULAR HEMOGLOBIN 30 pg (27-31); MEAN CORPUSCULAR HGB CONC 33 g/dL (33-37); MEAN CORPUSCULAR VOLUME 91.6 fL (80-94); PLATELET COUNT (AUTO) 249 K/uL (140-450); RED BLOOD CELL COUNT(AUTO) 4.14 MIL/uL (4.20-5.40); RED CELL DISTRIBUTION WIDTH 15.9 % (11.6-13.7); WHITE BLOOD COUNT (AUTO) 22.8 K/uL (4.8-10.8)
[2022-07-12 12:54] LABS: EOSINOPHILS % (MANUAL) 2 % (0-4); LYMPHOCYTES % (MANUAL) 4 % (20-46); MONOCYTES % (MANUAL) 3 % (5-12)
[2022-07-12] MEDS ORDERED: PIPERACILLIN IV SCH (13:00)
[2022-07-12] MEDS ORDERED: TAZOBACTAM IV SCH (13:00)
[2022-07-12] MEDS ORDERED: PIPERACILLIN/TAZOBACTAM 2.25 GM in DEXTROSE 5% 50 ML IV SCH (13:00)
[2022-07-12] MEDS ORDERED: DEXTROSE 5% IV SCH (13:00)
--- NOTE | 2022-07-12 13:20 | NUR ---
HEMODIALYSIS DONE, REMOVED 2 LITERS HEMODIALYSIS DONE TODAY, REMOVED 2 LITERS, GIVEN ZOSYN AFTER HD BY HD RN ANGEL.
[2022-07-12] MEDS: DEXMEDETOMIDINE HCL 400 MCG in NACL 0.9% 96 ML IV PRN (15:02)
[2022-07-12] MEDS: NOREPINEPHRINE 8 MG in DEXTROSE 5% 250 ML IV PRN (15:51)
--- NOTE | 2022-07-12 16:30 | NUR ---
SACRUM DRESSING DRESSING DONE WITH DUODERM (DRESSING GIVEN BY SCRAP DEALER MARCI), SECURED WITH FILM/TEGADERM DRESSING, SINCE PT. HAS LIQUID STOOLS. SACRUM HAS HEALED EXCORIATED WOUND & STARTING TO GET EXCORIATED ON ONE SPOT DUE TO LIQUID STOOLS.
[2022-07-12] MEDS ORDERED: VANCOMYCIN PER PHARMACY MC PRN (16:35)
--- NOTE | 2022-07-12 16:35 | NUR ---
PT PLACED ON SBT CPAP 5 PS 10 24%. ALARMS ON AND FUNCTIONING. NURSE MADE AWARE. WILL CONTINUE TO MONITOR.
--- NOTE | 2022-07-12 17:50 | NUR ---
PT HAS COMPLETED OVER AN HOUR OF SBT SET FOR 2 HOURS. PT TOLERATING CPAP 5 PS 10 AND FIO2 24% AT THIS TIME. NURSE UPDATED ON PT STATUS. WILL CONTINUE TO MONITOR.
--- NOTE | 2022-07-12 19:30 | NUR ---
REPORT GIVEN TO NIGHT RN SHANTEL, PT. INTUBATED, PRECEDEX 0.2 MCG/KG/HR, PT. STILL ABLE TO MOUTH WORDS EVEN WITH EYES CLOSED. CPAP/PS DONE TODAY TOLERATED 2 HRS. LEVO GTT TITRATED OFF, BUT WHEN PT. SLEEPS, BP DROPS, RESTARTED LEFT AT 2 MCG/MINUTE. DIALYZED TODAY REMOVED 2 LITERS X 3 HRS. SACRUM HEALING, DRESSING DONE WITH DUODERM . DAUGHTER MISS ANGEL NASH CALLED & UPDATED FOR HD.
--- NOTE | 2022-07-12 20:00 | NUR ---
OPENING NOTE PT. INTUBATED, PRECEDEX 0.2 MCG/KG/HR, PT. STILL ABLE TO MOUTH WORDS EVEN WITH EYES CLOSED BUT NOT FOLLOWING COMMANDS TO OPEN EYES. LEVO GTT AT 2 MCG/MINUTE. DIALYZED TODAY REMOVED 2 LITERS BUT OH STILL EDEMATOUS GENERALIZED. PT HAS R FEMORAL LINE INTACT AND INFUSING. F/C IN PLACE DRAINING TO GRAVITY. ALL SAFYT MEASURES IN PLACE WILL CONTINUE TO MONITOR FOR SAFETY.
--- NOTE | 2022-07-12 20:15 | NUR ---
BM PT HAS HAD ANOTHER LIQUID BM
[2022-07-12] MEDS: INSULIN LANTUS 100 UNITS/ML 10 ML VIAL SUBQ SCH (21:33)
--- NOTE | 2022-07-12 22:30 | NUR ---
DR DENY RICK MD PAGED FOR FLEXISEAL ORDER, PT HAS HAD 4 LIQUID STOOL TODAY
--- NOTE | 2022-07-12 22:48 | NUR ---
DR BARCLAY RETURNED CALL FLEXISEAL ORDER WAS GIVEN R/T PT HAS HAD 4 LIQUID STOOL TODAY
--- NOTE | 2022-07-12 23:30 | NUR ---
FLEIXSEAL FLEXISEAL HAS BRITNI PLACED AND PT HAD STOOL INT HE TUBE IMMEDIATELY
[2022-07-13] VITALS (26 sets, daily range): BP systolic 51–169; BP diastolic 33–99
--- NOTE | 2022-07-13 00:14 | NUR ---
C DIFF SPECIMEN TAKEN TO THE LAB AND LOGGED IN SPECIMEN AND C DIFF PAPER GIVEN TO LAB LADY FULLER
[2022-07-13] MEDS: BLOOD GLUCOSE MONITORING 1 DEV DEV FS SCH ×4 (00:24→17:34)
[2022-07-13] MEDS: INSULIN LISPRO SLIDING SCALE 100 UNITS/ML VIAL SUBQ PRN ×4 (00:27→17:39)
[2022-07-13] MEDS: PIPERACILLIN/TAZOBACTAM 2.25 GM in DEXTROSE 5% 50 ML IV SCH ×3 (05:00→20:59)
[2022-07-13 05:35] LABS: BASOPHILS % (AUTO) 0.2 % (0.0-2.0); EOSINOPHILS # (AUTO) 0.2 K/uL (0-0.4); EOSINOPHILS % (AUTO) 1.3 % (0.0-4.0); HEMATOCRIT 34.4 % (36-48); HEMOGLOBIN 11.1 g/dL (12.0-16.0); LYMPHOCYTES # (AUTO) 3.2 K/uL (2.5-16.5); MEAN CORPUSCULAR HEMOGLOBIN 30 pg (27-31); MEAN CORPUSCULAR HGB CONC 32 g/dL (33-37); MEAN CORPUSCULAR VOLUME 93.8 fL (80-94); MONOCYTES # (AUTO) 1.3 K/uL (0.8-1.0); NEUTROPHILS # (AUTO) 9.3 K/uL (1.8-7.7); NEUTROPHILS % (AUTO) 66.5 % (42.2-75.2); PLATELET COUNT (AUTO) 168 K/uL (140-450); RED BLOOD CELL COUNT(AUTO) 3.67 MIL/uL (4.20-5.40); RED CELL DISTRIBUTION WIDTH 15.9 % (11.6-13.7)
[2022-07-13 07:55] LABS: MAGNESIUM 2.2 mg/dL (1.8-2.4)
[2022-07-13] MEDS: hydrALAZINE 10 MG TAB NG SCH (09:00)
[2022-07-13] MEDS: PANTOPRAZOLE 40 MG INJ VIAL IVP SCH (09:27)
[2022-07-13] MEDS: methylPREDNISolone SS 40 MG/ML VIAL IVP SCH ×2 (09:28→21:00)
--- NOTE | 2022-07-13 09:45 | NUR ---
Alex PADILLA INFORMED ABOUT THE POTASSIUM LEVEL. NEW ORDER RECEIVED. NOTED AND CARRIED OUT.
[2022-07-13 10:16] LABS: SODIUM SERUM 140 mmol/L (136-145)
[2022-07-13 10:18] LABS: CHLORIDE 98 mmol/L (98-107); POTASSIUM 2.9 mmol/L (3.5-5.1)
[2022-07-13 10:19] LABS: ANION GAP 16.5 (8-16); CARBON DIOXIDE 28.4 mmol/L (21-32); CREATININE 3.9 mg/dL (0.6-1.3); GLUCOSE 150 mg/dL (74-106); UREA NITROGEN, BLOOD 31 mg/dL (7-18)
[2022-07-13] MEDS ORDERED: POTASSIUM CHLORIDE 20% 40 MEQ/15 ML UDC GT SCH (11:30)
[2022-07-13] MEDS ORDERED: KCL 20 MEQ/WATER INJ PREMIX 200 ML IV SCH (11:30)
[2022-07-13] MEDS ORDERED: KCL 20 MEQ/WATER INJ PREMIX 100 ML IV SCH (12:00)
--- NOTE | 2022-07-13 13:00 | NUR ---
RECEIVED TELEPHONE CALL FROM CLAUDINE BARRAGAN. UPDATED PATIENT CURRENT CONDITION AND POC. ALL QUESTION ANSWERED.
[2022-07-13] MEDS: DEXMEDETOMIDINE HCL 400 MCG in NACL 0.9% 96 ML IV PRN (17:32)
--- NOTE | 2022-07-13 19:00 | NUR ---
NoTES: ALL NEEDS METS. VITAL SIGN STABLE, AFEBRILE. ON [facility] VENTILATOR AC 14, TV 450, FIO2 24%, PEEP 5, SATURATION 100. ON LEVOPHED DRIP 0.5MCG/KG. PRECEDEX DRIP 6MCG, PASS +1 RESTLESS,TIRED TO BITE TUBE, RESPIRATORY THERAPIES AT THE BEDSIDE. FAMILY AT THE BEDSIDE.WILL ENDORSED TO INCOMING NURSE.
--- NOTE | 2022-07-13 19:20 | NUR ---
Received report from MALINA Arredondo TINNING EQUIPMENT TENDER, all question answered. Initial assessment done (Please see Flowsheet).
--- NOTE | 2022-07-13 21:00 | NUR ---
Due medications Given, Tolerated well. Will continue to Monitor for any adverse reactions that may possibly occur.
[2022-07-13] MEDS: INSULIN LANTUS 100 UNITS/ML 10 ML VIAL SUBQ SCH (21:18)
--- NOTE | 2022-07-13 21:18 | NUR ---
Checked BS= 207mg/dl, Before Giving Lantus 20 units SQ as ordered.
[2022-07-14] VITALS (26 sets, daily range): BP systolic 95–154; BP diastolic 40–66
[2022-07-14] MEDS: INSULIN LISPRO SLIDING SCALE 100 UNITS/ML VIAL SUBQ PRN (00:30)
--- NOTE | 2022-07-14 00:30 | NUR ---
BS= 178mg/Dl, Given 2 units HUMALOG SQ as per Sliding Scale Protocol ordered.
[2022-07-14] MEDS: BLOOD GLUCOSE MONITORING 1 DEV DEV FS SCH ×4 (00:31→18:00)
--- NOTE | 2022-07-14 00:35 | NUR ---
NGT Feeding was also HELD for Surgery tomorrow ( Trach & PEG).
--- NOTE | 2022-07-14 04:00 | NUR ---
Total care done, pericare rendered, Change gown, Linen & chaulks. Made Clean, Dry & comfortable.
[2022-07-14] MEDS: PIPERACILLIN/TAZOBACTAM 2.25 GM in DEXTROSE 5% 50 ML IV SCH ×3 (05:35→21:34)
[2022-07-14] MEDS: DEXMEDETOMIDINE HCL 400 MCG in NACL 0.9% 96 ML IV PRN (05:38)
--- NOTE | 2022-07-14 06:00 | NUR ---
Turned & repositioned q2h as ordered. No complaint of pain or discomfort at this time. No cardio- respiratory Distress noted, Suction PRN.
[2022-07-14 06:16] LABS: PROTHROMBIN TIME 9.9 secs (10.8-13.4)
--- NOTE | 2022-07-14 07:26 | NUR ---
Report given to MALINA Loomis HYPERION ANALYST, all questions answered.
--- NOTE | 2022-07-14 07:30 | NUR ---
RECEIVED PATIENT FROM NIGHT RN JULIO CESAR CESPEDES, PT. ORALLY INTUBATED, TO VENTILATOR. SEDATED WITH PRECEDEX 0.6 MCG/KG/HR., FOR HEMODIALYSIS TODAY. NPO POST MIDNIGHT FOR TRACHEOSTOMY & P.E.G. CONSENT SIGNED BY DAUGHTER. BELGICA, JOHNSON CATHETER IN SITU, RECTAL BAG FOR DIARRHEA. HR 50s. RESTRAINED BOTH WRISTS, DUE TO AGITATION. TITRATED DOWN PRECEDEX.
--- NOTE | 2022-07-14 07:52 | NUR ---
RECEIVED ON A I2 [employer]LE[employer] INTERNATION[employer]APE R860 VENTILATOR PLUGGED INTO RED OUTLET TOLERATING WELL WITHOUT ADVERSE REACTIONS NOTED TO AN ENDOTRACHEAL TUBE #7.5 SECURED AT 22cm TEETH/GUM LINE WITH AN ANCHOR FAST CUFF PRESSURE CHECKED NOTED AMBU BAG AT BEDSIDE STABLE EQUAL CHEST RISE GOOD AERATION THROUGHOUT BILATERAL LUNG SEGURA AIRWAY PATENT
[2022-07-14] MEDS: methylPREDNISolone SS 40 MG/ML VIAL IVP SCH ×2 (08:40→21:34)
[2022-07-14] MEDS: PANTOPRAZOLE 40 MG INJ VIAL IVP SCH (08:40)
[2022-07-14 08:55] LABS: BASOPHILS # (AUTO) 0.1 K/uL (0.00-0.22); BASOPHILS % (AUTO) 1.2 % (0.0-2.0); EOSINOPHILS # (AUTO) 0.1 K/uL (0-0.4); HEMATOCRIT 34.5 % (36-48); HEMOGLOBIN 11.4 g/dL (12.0-16.0); LYMPHOCYTES # (AUTO) 3.1 K/uL (2.5-16.5); LYMPHOCYTES % (AUTO) 26.1 % (20.5-51.1); MEAN CORPUSCULAR HEMOGLOBIN 31 pg (27-31); MEAN CORPUSCULAR HGB CONC 33 g/dL (33-37); MEAN CORPUSCULAR VOLUME 92.9 fL (80-94); MONOCYTES # (AUTO) 0.7 K/uL (0.8-1.0); MONOCYTES % (AUTO) 6.3 % (1.7-9.3); NEUTROPHILS # (AUTO) 7.7 K/uL (1.8-7.7); NEUTROPHILS % (AUTO) 65.4 % (42.2-75.2); PLATELET COUNT (AUTO) 145 K/uL (140-450); RED BLOOD CELL COUNT(AUTO) 3.71 MIL/uL (4.20-5.40); WHITE BLOOD COUNT (AUTO) 11.8 K/uL (4.8-10.8)
[2022-07-14] MEDS: hydrALAZINE 10 MG TAB NG SCH (09:00)
[2022-07-14 09:06] LABS: ANION GAP 16.4 (8-16); CARBON DIOXIDE 26.5 mmol/L (21-32); CHLORIDE 98 mmol/L (98-107); GLUCOSE 69 mg/dL (74-106); POTASSIUM 3.9 mmol/L (3.5-5.1); SODIUM SERUM 137 mmol/L (136-145); UREA NITROGEN, BLOOD 42 mg/dL (7-18)
[2022-07-14 09:28] LABS: CREATININE 4.9 mg/dL (0.6-1.3)
--- NOTE | 2022-07-14 11:00 | NUR ---
Helena AGUIRRE ANESTHESIOLOGIST CAME & ORDERED FOR STAT 2D-ECHOCARDIOGRAM FOR THE PATIENT PRE-SURGERY (TRACHEOSTOMY & P.E.G.) DIAGNOSTIC. TECH. INFORMED THRU THE HOME ECONOMICS TEACHER PAT. 1230 HRS. MARRIAGE COUNSELOR MINISTER HAISOON WAS INFORMED THAT THE HD WILL BE DONE AFTER THE SURGERY. 1330 HRS. JH LOZOYA CAME & INFORMED THAT STAT 2D-ECHOCARDIOGRAM NEEDS TO BE READ FOR THE PRE-SURGERY TEST.
--- NOTE | 2022-07-14 11:07 | NUR ---
RESTING WELL NO EVIDENCE OF PULMONARY DISTRESS NOTED GOOD CHEST RISE AIRWAY PATENT
--- NOTE | 2022-07-14 13:50 | NUR ---
NO DISTRESS NOTED GOOD CHEST RISE AIRWAY PATENT
--- NOTE | 2022-07-14 15:15 | NUR ---
PATIENT "BITING ENDOTRACHEAL TUBE" MOVED TUBE TO RIGHT SIDE PLACED ORAL AIRWAY LEFT SIDE TOLERATING WELL NO SUCTIONING REQUIRED AT THIS TIME
--- NOTE | 2022-07-14 16:17 | NUR ---
ASKED AVIONICS SYSTEMS REPAIRER IF THERE SCHEDULED TIME FOR TRACHE/PEG SINCE THERE IS NOBODY PICKING MY CALL AT O.R. EXTENSION 1790. NOTHING SCHEDULED, MESSAGED SHEILA DUMAS, ABOUT NPO, PT. GETS LANTUS AT NIGHT, HEPARIN & APRESOLINE IN THE MORNING, WHICH WAS HELD TODAY. 2D ECHOCARDIOGRAM WAS ALREADY REPORTED BY DR. ÁLVAREZ. AWAITING REPLY.
--- NOTE | 2022-07-14 16:30 | NUR ---
RESTART TF & NPO POST MIDNIGHT AGAIN Cynthia DUMAS NO REPLY. PHILIPPE HOWELL INFORMED THAT Cynthia DUMAS NO REPLY. DR. OVALLE ORDERED TO RESTART TUBE FEEDING, NPO AGAIN AT MIDNIGHT TONIGHT.
--- NOTE | 2022-07-14 16:30 | NUR ---
PRE-OP O.R.CHECKLIST FILLED UP EXCEPT VITAL SIGNS. PRE-OP CHECKLIST IN THE COMPUTER NEEDS TO BE FILLED UPON PT. GOING TO O.R. WITH O.R. AND ANESTHESIA CONSENT FOR THE TRACHE & PEG.
--- NOTE | 2022-07-14 19:24 | NUR ---
REPORT GIVEN TO NIGHT RN YARIEL, FOR HEMODIALYSIS NOW. NPO POST MIDNIGHT FOR TRACHE/PEG. WITH ANESTHESIA AND SURGERY CONSENTS, AND PAPER PRE OP CHECKLIST & AND FOR COMPUTER PRE OP CHECKLIST. INTUBATED, PRECEDEX LEFT AT 0.2 MCG/KG/HR. HAD 2D-ECHO DONE TODAY, EF 55%.
[2022-07-14] MEDS: INSULIN LANTUS 100 UNITS/ML 10 ML VIAL SUBQ SCH (21:46)
[2022-07-15] VITALS (23 sets, daily range): BP systolic 103–147; BP diastolic 41–72
[2022-07-15] MEDS: BLOOD GLUCOSE MONITORING 1 DEV DEV FS SCH ×5 (00:57→23:56)
[2022-07-15] MEDS: PIPERACILLIN/TAZOBACTAM 2.25 GM in DEXTROSE 5% 50 ML IV SCH ×3 (04:18→20:45)
[2022-07-15] MEDS: DEXMEDETOMIDINE HCL 400 MCG in NACL 0.9% 96 ML IV PRN (05:08)
[2022-07-15 05:46] LABS: BASOPHILS % (AUTO) 0.1 % (0.0-2.0); EOSINOPHILS % (AUTO) 0.3 % (0.0-4.0); HEMATOCRIT 35.4 % (36-48); HEMOGLOBIN 11.6 g/dL (12.0-16.0); LYMPHOCYTES # (AUTO) 1.3 K/uL (2.5-16.5); LYMPHOCYTES % (AUTO) 10.7 % (20.5-51.1); MEAN CORPUSCULAR HEMOGLOBIN 30 pg (27-31); MEAN CORPUSCULAR HGB CONC 33 g/dL (33-37); MONOCYTES # (AUTO) 0.5 K/uL (0.8-1.0); NEUTROPHILS # (AUTO) 9.9 K/uL (1.8-7.7); NEUTROPHILS % (AUTO) 84.9 % (42.2-75.2); PLATELET COUNT (AUTO) 143 K/uL (140-450); RED CELL DISTRIBUTION WIDTH 17.3 % (11.6-13.7); WHITE BLOOD COUNT (AUTO) 11.7 K/uL (4.8-10.8)
[2022-07-15 06:24] LABS: ANION GAP 9.4 (8-16); CHLORIDE 101 mmol/L (98-107); CREATININE 2.8 mg/dL (0.6-1.3); GLUCOSE 163 mg/dL (74-106); POTASSIUM 4.4 mmol/L (3.5-5.1); SODIUM SERUM 136 mmol/L (136-145); UREA NITROGEN, BLOOD 21 mg/dL (7-18)
[2022-07-15 06:30] LABS: PROTHROMBIN TIME 10.5 secs (10.8-13.4)
--- NOTE | 2022-07-15 07:50 | NUR ---
RECEIVED ON A BOARDZSCAPE R860 VENTILATOR PLUGGED INTO RED OUTLET TOLERATING WELL WITHOUT ADVERSE REACTIONS NOTED TO AN ENDOTRACHEAL TUBE #7.5 SECURED AT 22cm TEETH/GUM LINE WITH AN ANCHOR FAST CUFF PRESSURE CHECKED NOTED AMBU BAG AT BEDSIDE RESTING COMFORTABLY STABLE SEDATED PRECEDEX 0.3mcg EQUAL CHEST RISE ENDOTRACHEAL SUCTION FOR LARGE SEMIT HICK PALE YELLOW SECRETIONS AIRWAY PATENT
--- NOTE | 2022-07-15 08:05 | NUR ---
PER PEPPI/COMPOUND MACHINE OPERATOR SEDATION VIA IV OFF AT THIS TIME CABLE OPERATOR TO INITIATE CPAP AT AT LATER TIME
[2022-07-15] MEDS: PANTOPRAZOLE 40 MG INJ VIAL IVP SCH (08:49)
[2022-07-15] MEDS: hydrALAZINE 10 MG TAB NG SCH (08:50)
[2022-07-15] MEDS: methylPREDNISolone SS 40 MG/ML VIAL IVP SCH ×2 (08:50→20:46)
--- NOTE | 2022-07-15 09:38 | NUR ---
DR. MALIKA PHAN ROUNDLYDIA IN ICU ADVISED MD PATIENT PLACED ON SEDATION VACATION AT [address] PHAN: CPAP TRIAL TOLERATED
--- NOTE | 2022-07-15 10:28 | NUR ---
RESTING WELL STABLE GOOD CHEST RISE ENDOTRACHEAL SUCTION FOR SMALL THIN PALE YELLOW SECRETIONS AIRWAY PATENT
--- NOTE | 2022-07-15 10:33 | NUR ---
PLACED ON CPAP TRIAL NOTED PEPPI/ORACLE EBS ARCHITECT NOTIFIED
--- NOTE | 2022-07-15 12:52 | NUR ---
CALL FROM ZARA/KOSHER BUTCHER VENTILATOR DEFAULTED TO PREVIOUS SETTINGS
--- NOTE | 2022-07-15 12:56 | NUR ---
INCREASED SOB DUE TO INSPIRATORY WHEEZ BILATERAL PATIENT GOOD CANDIDATE FOR HHN THERAPY
[2022-07-15] MEDS ORDERED: ALBUTEROL SULFATE/IPRATROPIU 3 ML SOL IH PRN (13:10)
--- NOTE | 2022-07-15 13:33 | NUR ---
GOOD CHEST RISE ENDOTRACHEAL SUCTION FOR COPIOUS SEMI THICK HAZY SECRETIONS AIRWAY PATENT
--- NOTE | 2022-07-15 17:29 | NUR ---
NO APPARENT DISTRESS NOTED GOOD CHEST RISE ENDOTRACHEAL SUCTION FOR LARGE SEMI THICK OFF WHITE SECRETIONS AIRWAY PATENT
[2022-07-15] MEDS ORDERED: VANCOMYCIN 500 MG in NACL 0.9% 100 ML IV SCH (18:00)
[2022-07-15] MEDS: INSULIN LISPRO SLIDING SCALE 100 UNITS/ML VIAL SUBQ PRN (18:25)
--- NOTE | 2022-07-15 19:00 | NUR ---
1900: REC'D PT FROM DELANEY ORTIZ TO ASSUME PLAN OF CARE. PT'S ON CPAP MODE VERNELL FAIRLY. DENIES PAIN AND NO RESP DISTRESS IS NOTED. NEPRO NGT FEEDING ON 30CC/HR, NPO AFTER MN FOR PEG AND TRACH IN AM. SIGNED CONSENT AND PRE OP CHECKLIST STARTED PREVIOUSLY. PER REPORT PT'S SCHEDULE FOR T & P IN AM @1100. 1930: SUCTIONED. ORAL CARE RENDERED. 1944: PT'S RESTLESS, APPLIED BLANKETS AQS PT AWAKE AND ALERT AND USE HEA TO NOD YES OR NO IF ASK QUESTION DIRECTLY. FOLLOWS COMMAND. ON BILAT SOFT WRIST RESTRAINTS FOR SAFETY. REORIENTED TO ROOM, UNIT AND SURROUNDINGS. POC DISCUSSED. 1999: SHIFT ASSESSMENT DONE 2200: PM CARE RENDERED. SAFETY AND SKIN PROTOCOL ON PROGRESS. 0000: PT'S CALMED AND DROWSY. SAME VENT SETTINGS. STABLE VITAL SIGNS CONTINUE MONITOR VITAL SIGNS
[2022-07-15] MEDS: ALBUTEROL SULFATE/IPRATROPIU 3 ML SOL IH SCH (20:08)
[2022-07-15] MEDS: INSULIN LANTUS 100 UNITS/ML 10 ML VIAL SUBQ SCH (21:00)
[2022-07-16] VITALS (19 sets, daily range): BP systolic 101–180; BP diastolic 48–87
[2022-07-16] MEDS: PIPERACILLIN/TAZOBACTAM 2.25 GM in DEXTROSE 5% 50 ML IV SCH ×3 (05:13→21:14)
[2022-07-16] MEDS: INSULIN LISPRO SLIDING SCALE 100 UNITS/ML VIAL SUBQ PRN (05:15)
[2022-07-16] MEDS: BLOOD GLUCOSE MONITORING 1 DEV DEV FS SCH ×3 (05:17→18:53)
[2022-07-16 05:45] LABS: BASOPHILS % (AUTO) 0.3 % (0.0-2.0); EOSINOPHILS # (AUTO) 0.2 K/uL (0-0.4); EOSINOPHILS % (AUTO) 1.1 % (0.0-4.0); HEMOGLOBIN 10.8 g/dL (12.0-16.0); LYMPHOCYTES # (AUTO) 2.7 K/uL (2.5-16.5); LYMPHOCYTES % (AUTO) 19.1 % (20.5-51.1); MEAN CORPUSCULAR HEMOGLOBIN 31 pg (27-31); MEAN CORPUSCULAR HGB CONC 33 g/dL (33-37); MEAN CORPUSCULAR VOLUME 94.6 fL (80-94); MONOCYTES # (AUTO) 1.1 K/uL (0.8-1.0); MONOCYTES % (AUTO) 7.7 % (1.7-9.3); NEUTROPHILS # (AUTO) 9.9 K/uL (1.8-7.7); NEUTROPHILS % (AUTO) 71.8 % (42.2-75.2); PLATELET COUNT (AUTO) 194 K/uL (140-450); RED BLOOD CELL COUNT(AUTO) 3.48 MIL/uL (4.20-5.40); RED CELL DISTRIBUTION WIDTH 18.4 % (11.6-13.7); WHITE BLOOD COUNT (AUTO) 13.9 K/uL (4.8-10.8)
[2022-07-16 05:51] LABS: ANION GAP 14.1 (8-16); CARBON DIOXIDE 27.3 mmol/L (21-32); CHLORIDE 101 mmol/L (98-107); GLUCOSE 138 mg/dL (74-106); POTASSIUM 4.4 mmol/L (3.5-5.1); SODIUM SERUM 138 mmol/L (136-145); UREA NITROGEN, BLOOD 32 mg/dL (7-18)
[2022-07-16 05:56] LABS: CREATININE 4.1 mg/dL (0.6-1.3)
[2022-07-16 05:57] LABS: MAGNESIUM 2.1 mg/dL (1.8-2.4); PHOSPHORUS 4.5 mg/dL (2.5-4.9)
--- NOTE | 2022-07-16 07:03 | NUR ---
CHG BATH GIVEN, LINEN AND GOWN CHANGED. ORAL CARE WITH CHG ALSO RENDERED. FOR PEG AND TRACH TODAY. NPO SINCE AFTER MN. AM LABS DONE NO FALLS AND NO INJURY DURING SHIFT. ENDORSED PT TO M RN TO ASSUME PLAN OF CARE.
[2022-07-16] MEDS: ALBUTEROL SULFATE/IPRATROPIU 3 ML SOL IH SCH ×3 (07:55→19:23)
[2022-07-16] MEDS: PANTOPRAZOLE 40 MG INJ VIAL IVP SCH (09:22)
[2022-07-16] MEDS: methylPREDNISolone SS 40 MG/ML VIAL IVP SCH ×2 (09:23→21:15)
[2022-07-16] MEDS: hydrALAZINE 10 MG TAB NG SCH (09:24)
--- NOTE | 2022-07-16 09:48 | NUR ---
07/16/22 RD FOLLOW UP COMPLETED.PLEASE REFER TO NUTRITION ASSESSMENT UNDER CARE ACTIVITY FOR ESTIMATED NUTRITIONAL NEEDS. 1. WHEN/IF MEDICALLY APPROPRIATE TO RESUME TF, CONTINUE WITH NEPRO WITH A GOAL RATE OF 30 ML/HR TOLERATED RECOMMENDED 07/06/22 -FWF: 250 ML Q8H OR PER MD -START AT 20ML/HR AND INCREASE BY 10 ML Q4H UNTIL GOAL RATE IS REACHED. -PT WILL RECEIVE 1296 KCAL, 58 GRAMS PROTEIN AND 720 ML VOLUME. THIS MEETS 86% OF PTS ESTIMATED ENERGY NEEDS AND 97% OF ESTIMATED PROTEIN NEEDS; ADEQUATE. 2. MONITOR NPO STATUS. 3. RD TO FOLLOW-UP IN 3-5 DAYS PATIENT IS MODERATE RISK. ESTELITA CLARK RD Addendum: 07/17/22 at [address] PT WITH GTUBE PLACED. LAZARA RECOMMENDED NEPRO CARBSTEADY @ 35ML/HR WITH FWF 100ML Q6H TO MEET 100% ESTIMATED NUTRIENT NEEDS. RECOMMEND STARTING AT 20ML/HR AND INCREASE TO GOAL TOLERATED. WILL CONTINUE TO MONITOR. LORETTA HERNANDEZ RD
[2022-07-16] MEDS ORDERED: LIDOCAINE MPF 1% 10 ML ONE (10:32)
[2022-07-16 10:47] LABS: ALBUMIN 1.9 g/dL (3.4-5.0); ANION GAP 14.2 (8-16); ASPARTATE AMINOTRANSFERASE 14 U/L (15-37); CARBON DIOXIDE 27.4 mmol/L (21-32); CHLORIDE 100 mmol/L (98-107); GLUCOSE 193 mg/dL (74-106); POTASSIUM 4.6 mmol/L (3.5-5.1); SODIUM SERUM 137 mmol/L (136-145); TOTAL BILIRUBIN 0.6 mg/dL (0.0-1.0); UREA NITROGEN, BLOOD 34 mg/dL (7-18)
[2022-07-16 10:53] LABS: CREATININE 4.4 mg/dL (0.6-1.3)
[2022-07-16] MEDS ORDERED: SEVOFLURANE 250 ML BTL INH ONE (11:15)
[2022-07-16] MEDS ORDERED: ROCURONIUM 50 MG/5 ML VIAL IV ONE ×2 (11:15→11:35)
--- NOTE | 2022-07-16 11:18 | NUR ---
PATIENT TRANSFERRED TO OR FOR TRACHEOSTOMY PROCEDURE REMOVED FROM VENTILATOR PLACED ON SUPPLEMENTAL OXYGEN AT 15 LPM VIA E-TANK TO AMBU BAG/HME/ENDOTRACHEAL TUBE BAD DEPRESSION EVERY SIX SECONDS TOLERATED TRANSFER WELL WITHOUT INCIDENT SATURATION 100% HR MID 90'S
--- NOTE | 2022-07-16 11:18 | NUR ---
OFF SEDATION RESTING COMFORTABLY NO DISTRESS NOTED GOOD CHEST RISE ENDOTRACHEAL SUCTION FOR MODERATE SEMI THICK TO THIN PALE YELLOW/HAZY SECRETION AIRWAY PATENT
--- NOTE | 2022-07-16 11:30 | NUR ---
PT LEFT THE UNIT FOR PROCEDURE VIA HOSPITAL BED, GEN CONDITION STABLE FOR TRANSPORT. MD AND ENGINEERING DRAWINGS CHECKER AT BEDSIDE
[2022-07-16] MEDS ORDERED: fentaNYL citrate 0.05 MG/ML VIAL ONE (11:35)
--- NOTE | 2022-07-16 12:30 | NUR ---
PT BACK FROM PROCEDURE, SEDATED, PEG AND TRACH IN PLACE, NO S/S ACTIVE BLEEDING IN SURGICAL SITES. NOT IN ANY FORM OF DISTRESS. TOLERATING CURRENT VENT SETTING, 100% SAT. KEPT CLEAN AND DRY. CONT TO MONITOR.
--- NOTE | 2022-07-16 15:30 | NUR ---
HD STARTED. RESTARTED PRECEDEX DRIP PER PROTOCOL JESSICA SOFT WRIST RESTRAINTS IN PLACE. CONT TO MONITOR.
[2022-07-16] MEDS: DEXMEDETOMIDINE HCL 400 MCG in NACL 0.9% 96 ML IV PRN (15:31)
--- NOTE | 2022-07-16 19:00 | NUR ---
1909: REC'D PT FROM DELANEY ORTIZ TO ASSUME PLAN OF CARE. PTS S/P PEG AND TRACH TODAY. PEG SITE CLEAN, NO BLEEDING IS NOTED. TRACH, SLIGHTLY BLEEDING, RT AT THE BEDSIDE. TRACH TO VENT AC 14, TV 450, FI02 100%, PORTEX 7. ON PRECEDEX GTTS. PT'S AWAKE AND ALERT, FOLLOWS COMMAND. DENIES PAIN. PT SAID SHE'S JUST COLD, APPLIED EXTRA BLANKET. HD JUST FINISHED/COMPLETED WITH 1 LITER OUT.. STABLE VITAL SIGNS. SR. TURNED AND REPOSTIONED. 1999: SHIFT ASSESSMENT DONE. SAFETY AND SKIN PROTOCOL ON PROGRESS. CONTINUE MONITOR.
--- NOTE | 2022-07-16 19:15 | NUR ---
HD COMPLETED, 1L REMOVED. REMAINS ON PRECEDEX DRIP. NO ACTIVE BLEEDING NOTED FROM SURGICAL SITES. GEN CONDITON CRITICAL.
[2022-07-16] MEDS: INSULIN LANTUS 100 UNITS/ML 10 ML VIAL SUBQ SCH (21:00)
[2022-07-17] VITALS (21 sets, daily range): BP systolic 93–136; BP diastolic 37–58
[2022-07-17] MEDS: INSULIN LISPRO SLIDING SCALE 100 UNITS/ML VIAL SUBQ PRN ×4 (00:04→23:09)
[2022-07-17] MEDS: BLOOD GLUCOSE MONITORING 1 DEV DEV FS SCH ×5 (05:31→23:08)
--- NOTE | 2022-07-17 07:06 | NUR ---
0706: NO SIGNIFICANT CHANGES FROM PREVIOUS SHIFT ASSESSMENT. NO ACTIVE BLEEDING FROM TRACH AND PEG SITE, CLEAN AND DRY. TRACH AND PEG CARE DONE. STABLE VITAL SIGNS. SR. SUCTIONED PRN ORALLY, THICK FOAMY SECRETIONS WHITISH COLOR. FOLLOW COMMANDS, AWAKE, NO C/O PAIN USING HEAD NODDING Y/N. REMAIN NPO, PEG CLAMPED POST OP DAY 1. PRECEDEX OFF 0600. CONTINUE ON BILAT SOFT WRIST RESTRAINTS. ENDORSED PT TO RN PEPPI TO ASSUME PLAN OF CARE.
--- NOTE | 2022-07-17 08:00 | NUR ---
rECEIVED PT ON BED - DROWSY, AROUSABLE, AFEBRILE, NOT IN ANY FORM OF DISTRESS. TRACH TO VENT, TOLERATING CURRENT VENT SETTING. ASSESSMENT DONE. MAINTAINED NPO. REPOSITIONED TO SIDE, SUPPORTED WITH PILLOWS. MADE WARM AND COMFORTABLE. SR, CONT TO MONITOR.
[2022-07-17 09:18] LABS: BASOPHILS % (AUTO) 0.2 % (0.0-2.0); HEMATOCRIT 30.4 % (36-48); LYMPHOCYTES # (AUTO) 0.6 K/uL (2.5-16.5); LYMPHOCYTES % (AUTO) 5.9 % (20.5-51.1); MEAN CORPUSCULAR HEMOGLOBIN 31 pg (27-31); MEAN CORPUSCULAR HGB CONC 33 g/dL (33-37); MONOCYTES # (AUTO) 0.5 K/uL (0.8-1.0); MONOCYTES % (AUTO) 4.4 % (1.7-9.3); NEUTROPHILS # (AUTO) 9.3 K/uL (1.8-7.7); NEUTROPHILS % (AUTO) 89.5 % (42.2-75.2); PLATELET COUNT (AUTO) 135 K/uL (140-450); RED CELL DISTRIBUTION WIDTH 18.5 % (11.6-13.7); WHITE BLOOD COUNT (AUTO) 10.4 K/uL (4.8-10.8)
[2022-07-17 09:28] LABS: ANION GAP 17.1 (8-16); CARBON DIOXIDE 26.5 mmol/L (21-32); CHLORIDE 100 mmol/L (98-107); CREATININE 2.9 mg/dL (0.6-1.3); GLUCOSE 198 mg/dL (74-106); POTASSIUM 3.6 mmol/L (3.5-5.1); SODIUM SERUM 140 mmol/L (136-145); UREA NITROGEN, BLOOD 17 mg/dL (7-18)
[2022-07-17] MEDS: PANTOPRAZOLE 40 MG INJ VIAL IVP SCH (09:36)
[2022-07-17] MEDS: methylPREDNISolone SS 40 MG/ML VIAL IVP SCH ×2 (09:37→20:46)
[2022-07-17] MEDS: hydrALAZINE 10 MG TAB NG SCH (09:46)
--- NOTE | 2022-07-17 10:17 | NUR ---
RN CALLED FOR RT TO LOOK AT PT DUE TO RR OF 8 BPM WHEN RT SHOWED UP PT WAS BREATHING 14RR ON CPAP. NO DISTRESS NOTED. VENT CHECK WAS COLLECTED . WILL CONTINUE TO MONITOR.
--- NOTE | 2022-07-17 11:00 | NUR ---
PT PLACED ON CPAP AT 0940 AT , RR SLOWLY SLOWING DOWN TO 8/MIN. VENT CONTINUOUSLY ALARMING, SAT 97. CPAP TRIAL ENDED AT 1055, PLACED BACK TO AC MODE. CONT TO MONITOR.
--- NOTE | 2022-07-17 11:41 | NUR ---
RN CALLED RT FOR PT VENT ALARM ALARMING. WENT TO CHECK ON PT SHE REVERTED TO HER BACKUP SETTINGS TO AC VC 450 RR14 +5 24%. NO DISTRESS NOTED PT VENT CHECK COLLECTED. WILL CONTINUE TO MONITOR.
[2022-07-17] MEDS: ALBUTEROL SULFATE/IPRATROPIU 3 ML SOL IH SCH ×3 (13:00→19:49)
--- NOTE | 2022-07-17 19:10 | NUR ---
0: REC'D PT FROM DELANEY ORTIZ TO ASSUME PLAN OF CARE. PT'S ON TRACH TO VENT SAME SETTINGS PRESCRIBED VERNELL FAIRLY. ON PEG NEPRO FEEDING AT 35CC/HR (GOAL), NO GASTRIC RESIDUAL. PEG SITE CLEAN AND INTACT. TRACH SITE CLEAN AND DRY. NO RESP DISTRESS AND NO SIGNS OF DISCOMFORT. ALERT AND AWAKE, FOLLOWS SIMPLE COMMAND, NO FAMILY AT THE BEDSIDE. FC IN PLACED WITH SCANT AMOUNT OF UOP. HAS RECTAL TUBE. 1999: SHIFT ASSESSMENT DONE. TURNED AND REPOSITIONED. ORAL CARE PER VAP PROTOCOL. SAFETY AND SKIN CARE DONE. ON BILAT SWR FOR SAFETY. REORIENTED PT TO UNIT/ROOM/SURROUNDINGS AND POC DISCUSSED. CONTINUE MONITOR.
[2022-07-17] MEDS: INSULIN LANTUS 100 UNITS/ML 10 ML VIAL SUBQ SCH (21:19)
[2022-07-18] VITALS (13 sets, daily range): BP systolic 90–148; BP diastolic 38–76
[2022-07-18] MEDS ORDERED: DEXTROSE 50% 50 ML SYR IVP PRN (05:55)
[2022-07-18] MEDS ORDERED: DEXTROSE 50% 50 ML SYR IVP ONE (06:00)
[2022-07-18] MEDS: BLOOD GLUCOSE MONITORING 1 DEV DEV FS SCH ×3 (06:00→18:20)
--- NOTE | 2022-07-18 06:25 | NUR ---
0546: CHECKED BLOOD SUGAR = 50 0550 RECHECKED BS=45 PT'S ALERT AND AWAKE, NO RESP DISTRESS. ON FEEDING NEPRO AT 35CC/HR, NO GASTRIC RESIDUAL CALLED DR. LIU AND REPORTED PT'S BLOOD SUGAR CHECKS. ORDERED TO GIVE D50 IVP PRN FOR BS<70 065: RECHECKED BLOOD SUGAR AFTER GIVEN D50 = 197, NOT GIVEN COVERAGE.
--- NOTE | 2022-07-18 07:09 | NUR ---
NO SIGNIFICANT CHANGES FROM PREVIOUS SHIFT ASSESSMENT. FREQUENT SUCTIONING ORALLY, FOAMY WITH BLOOD TINGE SECRETIONS COPIOUS AMOUNT LESS THAN 5 MINS. ALERT AND ORIENTED, DENIES PAIN, NO RESPIRATORY DISTRESS. FOLLOWS COMMAND STABLE VITAL SIGNS. HAD GIVEN COMPLETE BATH, COMPLETE LINEN AND GOWN CHANGED. NO FALLS AND NO INJURY DURING SHIFT. ENDORSED PT TO DELANEY ALVARADO TO ASSUME PLAN OF CARE.
--- NOTE | 2022-07-18 07:10 | NUR ---
RECEIVED BEDSIDE REPORT FROM SAMSON, POWER GENERATION TECHNICIAN, FOR CONTINUITY OF CARE. ITALIAN SPEAKING ONLY. BILATERAL CATARACTS. TRACH TO VENT FIO2 24%/VT 450/RR 14/PEEP 5. SR ON MONITOR, TRIPLE LUMEN CENTRAL LINE INFUSING NS TKO. G TUBE TO TUBE FEEDING, NEPRO 35ML/HR WITH FWF 100ML Q6H. F/C TO GRAVITY. FLEXISEAL DRAINING LIQUID STOOL. MODERATE WEAKNESS THROUGHOUT. BILATERAL SOFT WRIST RESTRAINTS, NO S/SX OF INJURY. CONTACT PRECAUTIONS FOR POSSIBLE CDIFF, CULTURE PENDING. CALL LIGHT WITHIN REACH, BED LOCKED AND IN LOWEST POSITION.
[2022-07-18 07:39] LABS: BASOPHILS % (AUTO) 0.3 % (0.0-2.0); EOSINOPHILS # (AUTO) 0.1 K/uL (0-0.4); EOSINOPHILS % (AUTO) 0.7 % (0.0-4.0); HEMATOCRIT 27.9 % (36-48); HEMOGLOBIN 9.3 g/dL (12.0-16.0); LYMPHOCYTES # (AUTO) 1.5 K/uL (2.5-16.5); LYMPHOCYTES % (AUTO) 14.9 % (20.5-51.1); MEAN CORPUSCULAR HEMOGLOBIN 32 pg (27-31); MEAN CORPUSCULAR HGB CONC 33 g/dL (33-37); MEAN CORPUSCULAR VOLUME 94.8 fL (80-94); MONOCYTES # (AUTO) 0.7 K/uL (0.8-1.0); MONOCYTES % (AUTO) 6.7 % (1.7-9.3); NEUTROPHILS # (AUTO) 7.6 K/uL (1.8-7.7); NEUTROPHILS % (AUTO) 77.4 % (42.2-75.2); PLATELET COUNT (AUTO) 127 K/uL (140-450); RED BLOOD CELL COUNT(AUTO) 2.94 MIL/uL (4.20-5.40); RED CELL DISTRIBUTION WIDTH 18.1 % (11.6-13.7); WHITE BLOOD COUNT (AUTO) 9.8 K/uL (4.8-10.8)
[2022-07-18] MEDS: ALBUTEROL SULFATE/IPRATROPIU 3 ML SOL IH SCH ×3 (07:41→20:45)
[2022-07-18 07:49] LABS: ANION GAP 11.9 (8-16); CHLORIDE 102 mmol/L (98-107); GLUCOSE 129 mg/dL (74-106); SODIUM SERUM 142 mmol/L (136-145); UREA NITROGEN, BLOOD 26 mg/dL (7-18)
[2022-07-18 07:55] LABS: PHOSPHORUS 3.7 mg/dL (2.5-4.9)
[2022-07-18 07:56] LABS: CREATININE 4.1 mg/dL (0.6-1.3); POTASSIUM 2.9 mmol/L (3.5-5.1)
[2022-07-18] MEDS ORDERED: POTASSIUM CHLORIDE 20% 40 MEQ/15 ML UDC GT SCH (08:00)
--- NOTE | 2022-07-18 08:20 | NUR ---
SEEN AND EXAMINED BY DR. LIU. NO NEW ORDERS.
[2022-07-18] MEDS: methylPREDNISolone SS 40 MG/ML VIAL IVP SCH ×2 (08:44→21:58)
[2022-07-18] MEDS: PANTOPRAZOLE 40 MG INJ VIAL IVP SCH (08:44)
[2022-07-18] MEDS: hydrALAZINE 10 MG TAB NG SCH (08:44)
--- NOTE | 2022-07-18 09:57 | NUR ---
SEEN AND EXAMINED BY DR. ROBLES. MAGDY TO TRANSFER TO TELE.
--- NOTE | 2022-07-18 14:15 | NUR ---
REPORT GIVEN TO MEDICAL REVIEW COORDINATOR, YANCY, FOR CONTINUITY OF CARE. PT TRANSFERRED TO 123B WITH ALL BELONGINGS.
[2022-07-18] MEDS: INSULIN LISPRO SLIDING SCALE 100 UNITS/ML VIAL SUBQ PRN (18:23)
--- NOTE | 2022-07-18 18:53 | NUR ---
1402 RECEIVED PATIENT FROM EVP OPERATIONSDELANEY ALVARADO, REPORT RECEIVED. PT IS A TRANSFER FROM ICU, NON-VERBAL, UNABLE TO ASSESS ORIENTATION. TRACH TO VENT, GTUBE IN PLACE, GTF INFUSING PER MD ORDER. BILAT SOFT WRIST RESTRAINTS APPLIED FOR PULLING AT LINES/TUBES. JOHNSON CATH IN PLACE AND DRAINING SMALL AMOUNT OF URINE, PT IS OLIGURIC AND ON DIALYSIS. L AV SHUNT +BRUIT/THRILL. R FEMORAL TRIPLE LUMEN CENTRAL LINE, DRESSING INTACT AND PATENT. WOUND TO SACRAL AREA, COVERED WITH DRESSING, CDI. RECTAL TUBE IN PLACE AND DRAINING BROWN STOOL. ASPIRATION PRECAUTIONS MAINTAINED, HOB ELEVATED TO 30 DEGREES, BED LOCKED, SIDE RAILS x2. CALL LIGHT IN REACH, WILL CONT TO MONITOR.
[2022-07-18] MEDS: INSULIN LANTUS 100 UNITS/ML 10 ML VIAL SUBQ SCH (21:00)
[2022-07-19] VITALS: BP 157/72
[2022-07-19] MEDS: BLOOD GLUCOSE MONITORING 1 DEV DEV FS SCH ×4 (00:09→17:09)
--- NOTE | 2022-07-19 00:10 | NUR ---
CHECK BLOOD SUGAR = 124, NO SLIDING SCALE COVERAGE, NO INSULIN NEEDED.
[2022-07-19 04:00] VITALS: BP 157/72
[2022-07-19] MEDS: ALBUTEROL SULFATE/IPRATROPIU 3 ML SOL IH SCH ×3 (07:27→19:18)
[2022-07-19] MEDS: INSULIN LISPRO SLIDING SCALE 100 UNITS/ML VIAL SUBQ PRN ×2 (07:36→12:57)
[2022-07-19 08:00] VITALS: BP 139/81
[2022-07-19 09:13] LABS: BASOPHILS % (AUTO) 0.1 % (0.0-2.0); EOSINOPHILS % (AUTO) 0.1 % (0.0-4.0); HEMATOCRIT 33.5 % (36-48); HEMOGLOBIN 10.9 g/dL (12.0-16.0); LYMPHOCYTES # (AUTO) 0.8 K/uL (2.5-16.5); LYMPHOCYTES % (AUTO) 6.8 % (20.5-51.1); MEAN CORPUSCULAR HEMOGLOBIN 31 pg (27-31); MEAN CORPUSCULAR HGB CONC 33 g/dL (33-37); MEAN CORPUSCULAR VOLUME 95.9 fL (80-94); MONOCYTES # (AUTO) 0.5 K/uL (0.8-1.0); MONOCYTES % (AUTO) 4.5 % (1.7-9.3); NEUTROPHILS % (AUTO) 88.5 % (42.2-75.2); PLATELET COUNT (AUTO) 151 K/uL (140-450); RED BLOOD CELL COUNT(AUTO) 3.49 MIL/uL (4.20-5.40); RED CELL DISTRIBUTION WIDTH 18.4 % (11.6-13.7); WHITE BLOOD COUNT (AUTO) 11.3 K/uL (4.8-10.8)
[2022-07-19 09:26] LABS: ANION GAP 17.8 (8-16); CARBON DIOXIDE 28.2 mmol/L (21-32); CHLORIDE 101 mmol/L (98-107); GLUCOSE 206 mg/dL (74-106); SODIUM SERUM 142 mmol/L (136-145); UREA NITROGEN, BLOOD 39 mg/dL (7-18)
[2022-07-19 09:53] LABS: CREATININE 5.4 mg/dL (0.6-1.3)
[2022-07-19] MEDS: PANTOPRAZOLE 40 MG INJ VIAL IVP SCH (10:21)
[2022-07-19] MEDS: methylPREDNISolone SS 40 MG/ML VIAL IVP SCH (10:22)
[2022-07-19] MEDS: hydrALAZINE 10 MG TAB NG SCH (10:23)
[2022-07-19 12:00] VITALS: BP 141/78
[2022-07-19 20:00] VITALS: BP 124/64
--- NOTE | 2022-07-19 20:00 | NUR ---
RECEIVED BEDSIDE REPORT FROM DAY NURSE FOR CONTINUITY OF CARE. RECEIVED PATIENT ASLEEP AND GETTING HEMODIALYSIS AT THIS TIME. PATIENT NOT ON ANY DISTRESS AT THIS TIME. GTF INFUSING ORDERED. 10 CC RESIDUAL NOTED. VITAL SIGNS STABLE, AFEBRILE, SATING 100% ON VENT SETTING W/ FIO2 24%. SR ON CDL TEAM TRUCK DRIVER, HR-98. CALL LIGHT WITHIN REACH. WILL CONTINUE POC AND MONITORING.
--- NOTE | 2022-07-19 22:00 | NUR ---
ALL DUE MEDS GIVEN ORDERED. NO ADVERSE DRUG REACTION NOTED AND NO COMPLAIN FROM THE PATIENT. WILL CONTINUE OBSERVATION.
[2022-07-19] MEDS: INSULIN LANTUS 100 UNITS/ML 10 ML VIAL SUBQ SCH (22:13)
[2022-07-20] VITALS: BP 108/54
--- NOTE | 2022-07-20 | NUR ---
VITAL SIGNS STABLE, AFEBRILE SATING 99% ON VENT SETTING WITH FIO2 24%. SR ON FILLING MACHINE OPERATOR, HR-100. PT NOT ON ANY DISTRESS AND NO COMPLAIN AT THIS TIME. CALL LIGHT WITHIN REACH. WILL CONTINUE POC AND MONITORING.
[2022-07-20] MEDS: BLOOD GLUCOSE MONITORING 1 DEV DEV FS SCH ×4 (00:32→17:36)
--- NOTE | 2022-07-20 02:00 | NUR ---
PATIENT ASLEEP AT THIS TIME. VISIBLE CHEST RISE AND FALL NOTED. SAFETY MEASURES IN PLACED.
[2022-07-20 04:00] VITALS: BP 102/53
--- NOTE | 2022-07-20 04:00 | NUR ---
VITAL SIGNS STABLE, AFEBRILE SATING 99% ON VENT SETTING WITH FIO2 24%. SR ON CONFECTIONERY COOKER, HR-98. PT NOT ON ANY DISTRESS AND NO COMPLAIN AT THIS TIME. CALL LIGHT WITHIN REACH. WILL CONTINUE POC AND MONITORING.
--- NOTE | 2022-07-20 06:00 | NUR ---
NO ACUTE EVENT THROUGHOUT THE NIGHT. PATIENT STABLE AND NOT ON ANY DISTRESS. ALL NEEDS ATTENDED. WILL ENDORSE THE PATIENT TO THE ONCOMING NURSE FOR CONTINUITY OF CARE.
[2022-07-20 06:23] LABS: BASOPHILS % (AUTO) 0.2 % (0.0-2.0); EOSINOPHILS # (AUTO) 0.1 K/uL (0-0.4); EOSINOPHILS % (AUTO) 0.8 % (0.0-4.0); HEMOGLOBIN 10.1 g/dL (12.0-16.0); LYMPHOCYTES # (AUTO) 1.4 K/uL (2.5-16.5); LYMPHOCYTES % (AUTO) 11.4 % (20.5-51.1); MEAN CORPUSCULAR HEMOGLOBIN 31 pg (27-31); MEAN CORPUSCULAR HGB CONC 33 g/dL (33-37); MONOCYTES # (AUTO) 0.7 K/uL (0.8-1.0); MONOCYTES % (AUTO) 5.5 % (1.7-9.3); NEUTROPHILS # (AUTO) 10.4 K/uL (1.8-7.7); NEUTROPHILS % (AUTO) 82.1 % (42.2-75.2); PLATELET COUNT (AUTO) 142 K/uL (140-450); RED BLOOD CELL COUNT(AUTO) 3.26 MIL/uL (4.20-5.40); WHITE BLOOD COUNT (AUTO) 12.7 K/uL (4.8-10.8)
[2022-07-20 07:16] LABS: ANION GAP 11.8 (8-16); CARBON DIOXIDE 28.6 mmol/L (21-32); CHLORIDE 101 mmol/L (98-107); GLUCOSE 122 mg/dL (74-106); POTASSIUM 3.4 mmol/L (3.5-5.1); SODIUM SERUM 138 mmol/L (136-145)
[2022-07-20 07:17] LABS: UREA NITROGEN, BLOOD 27 mg/dL (7-18)
--- NOTE | 2022-07-20 07:25 | NUR ---
ENDORSED PATIENT TO THE ONCOMING NURSE FOR CONTINUITY OF CARE. PATIENT STABLE. SIGNING OFF.
[2022-07-20] MEDS: ALBUTEROL SULFATE/IPRATROPIU 3 ML SOL IH SCH ×2 (07:32→15:24)
[2022-07-20 08:00] VITALS: BP 117/53
[2022-07-20] MEDS: hydrALAZINE 10 MG TAB NG SCH (09:00)
[2022-07-20] MEDS: methylPREDNISolone SS 40 MG/ML VIAL IVP SCH (09:52)
[2022-07-20] MEDS: PANTOPRAZOLE 40 MG INJ VIAL IVP SCH (09:52)
[2022-07-20 12:00] VITALS: BP 112/57
--- NOTE | 2022-07-20 14:02 | NUR ---
07/20/22 RD FOLLOW UP COMPLETED PLEASE REFER TO NUTRITION ASSESSMENT UNDER CARE ACTIVITY FOR ESTIMATED NUTRITIONAL NEEDS. 1. WHEN/IF MEDICALLY APPROPRIATE TO RESUME TF, CONTINUE WITH NEPRO WITH A GOAL RATE OF 35 ML/HR TOLERATED -FWF: 100 ML Q8H OR PER MD -START AT 20ML/HR AND INCREASE TO 35ML/HR AFTER 4 HOURS IF TOLERATED -PT WILL RECEIVE 1512 KCAL AND 68 GRAMS PROTEIN, MEETING 100% OF PTS ESTIMATED ENERGY NEEDS 2. MONITOR NPO STATUS. 3. RD TO FOLLOW-UP IN 3-5 DAYS PATIENT IS MODERATE RISK SINDY HERNANDEZ RD
[2022-07-20] MEDS: INSULIN LISPRO SLIDING SCALE 100 UNITS/ML VIAL SUBQ PRN (17:52)
--- NOTE | 2022-07-20 19:30 | NUR ---
RECEIVED PT FROM AM NURSE FOR CONYINUITY OF CARE. PT IS STABLE
[2022-07-20 20:00] VITALS: BP 119/54
[2022-07-20] MEDS: INSULIN LANTUS 100 UNITS/ML 10 ML VIAL SUBQ SCH (21:00)
--- NOTE | 2022-07-21 | NUR ---
BLD GLUCOSE 42, IV D50 IVPUSH GIVEN. WILL MONITOR
--- NOTE | 2022-07-21 00:15 | NUR ---
BLOOD GLUCOSE WENT UP TO 167 AFTER THE IV D50 IVP
[2022-07-21 04:00] VITALS: BP 150/83
[2022-07-21] MEDS: BLOOD GLUCOSE MONITORING 1 DEV DEV FS SCH ×4 (05:57→18:40)
[2022-07-21 07:23] LABS: BASOPHILS % (AUTO) 0.1 % (0.0-2.0); EOSINOPHILS # (AUTO) 0.1 K/uL (0-0.4); HEMATOCRIT 31.9 % (36-48); HEMOGLOBIN 10.4 g/dL (12.0-16.0); LYMPHOCYTES # (AUTO) 1.6 K/uL (2.5-16.5); LYMPHOCYTES % (AUTO) 13.2 % (20.5-51.1); MEAN CORPUSCULAR HEMOGLOBIN 31 pg (27-31); MEAN CORPUSCULAR HGB CONC 33 g/dL (33-37); MEAN CORPUSCULAR VOLUME 94.1 fL (80-94); MONOCYTES # (AUTO) 0.6 K/uL (0.8-1.0); MONOCYTES % (AUTO) 5.1 % (1.7-9.3); NEUTROPHILS % (AUTO) 80.6 % (42.2-75.2); PLATELET COUNT (AUTO) 138 K/uL (140-450); RED BLOOD CELL COUNT(AUTO) 3.39 MIL/uL (4.20-5.40); RED CELL DISTRIBUTION WIDTH 17.7 % (11.6-13.7); WHITE BLOOD COUNT (AUTO) 12.4 K/uL (4.8-10.8)
--- NOTE | 2022-07-21 07:25 | NUR ---
endorsed pt to am nurse. pt is stable
[2022-07-21 07:47] LABS: ANION GAP 14.9 (8-16); CARBON DIOXIDE 26.7 mmol/L (21-32); CHLORIDE 100 mmol/L (98-107); GLUCOSE 90 mg/dL (74-106); POTASSIUM 3.6 mmol/L (3.5-5.1); SODIUM SERUM 138 mmol/L (136-145); UREA NITROGEN, BLOOD 39 mg/dL (7-18)
[2022-07-21 08:00] VITALS: BP 101/35
[2022-07-21 08:27] LABS: CREATININE 4.9 mg/dL (0.6-1.3)
[2022-07-21 08:56] LABS: PHOSPHORUS 4.3 mg/dL (2.5-4.9)
[2022-07-21] MEDS ORDERED: EPOETIN ALFA-EPBX 10,000 UNITS/ML VIAL IV SCH (09:00)
[2022-07-21] MEDS: hydrALAZINE 10 MG TAB NG SCH (09:00)
[2022-07-21] MEDS: methylPREDNISolone SS 40 MG/ML VIAL IVP SCH (10:03)
[2022-07-21] MEDS: PANTOPRAZOLE 40 MG INJ VIAL IVP SCH (10:03)
[2022-07-21 12:00] VITALS: BP 102/34
[2022-07-21] MEDS: QUEtiapine FUMARATE 25 MG TAB PO SCH ×2 (12:26→21:25)
[2022-07-21] MEDS: ALBUTEROL SULFATE/IPRATROPIU 3 ML SOL IH SCH (13:08)
[2022-07-21 16:00] VITALS: BP 107/41
--- NOTE | 2022-07-21 19:25 | NUR ---
FOUND PATIENT ON AC 450 F14 +5 24%FIO2. VENT PLUGGED INTO RED OUTLET. AMBU BAG, SUCTION AND FLOWMETER AT BEDSIDE. NO RESPIRATORY DISTRESS NOTED. WILL CONTINUE TO MONITOR THE PATIENT.
--- NOTE | 2022-07-21 19:30 | NUR ---
RECEIVED REPORT FROM DAY SHIFT RN CHAD FOR CONTINUITY OF CARE. PT IS AWAKE WITH FAMILY BY BEDSIDE. PT IS TRACH TO VENT. SETTINGS: FIO2 24% VT 450, RT 14, PEEP 5. PT SATING 98%. PT HAS RECTAL TUBE. PT HAS FC DRAINING CLEAR YELLOW URINE. PT HAS RIGHT FEMORAL TRIPLE LUMEN CATHETER SALINE LOCK. BED AT THE LOWEST POSITION. HEAD OF THE BED RAISED. WILL CONTINUE TO MONITOR THE PT.
[2022-07-21 20:00] VITALS: BP 103/43
[2022-07-21] MEDS: INSULIN LANTUS 100 UNITS/ML 10 ML VIAL SUBQ SCH (21:25)
--- NOTE | 2022-07-21 21:36 | NUR ---
SCHEDULE MEDICATIONS GIVEN. NO ADVERSE REACTION NOTED. WILL CONTINUE TO MONITOR THE PT.
[2022-07-22] VITALS: BP 95/48
[2022-07-22] MEDS: INSULIN LISPRO SLIDING SCALE 100 UNITS/ML VIAL SUBQ PRN ×3 (00:44→17:24)
[2022-07-22] MEDS: BLOOD GLUCOSE MONITORING 1 DEV DEV FS SCH ×4 (00:46→17:23)
--- NOTE | 2022-07-22 00:47 | NUR ---
PT BLOOD GLUCOSE OF 185. 2 UNITS OF HUMALOG GIVEN. PT NOT IN ANY DISTRESS. WILL CONTINUE TO MONITOR THE PT.
[2022-07-22] MEDS: ALBUTEROL SULFATE/IPRATROPIU 3 ML SOL IH SCH ×4 (01:32→20:38)
[2022-07-22 04:00] VITALS: BP 113/35
--- NOTE | 2022-07-22 04:05 | NUR ---
PT OBSERVED. PT IS SLEEPING COMFORTABLY IN BED. PT NOT IN ANY ACUTE DISTRESS. VITAL SIGNS STABLE.
--- NOTE | 2022-07-22 05:45 | NUR ---
PT WAS CLEANED AND CHANGED. TOLERATED IT WELL. WILL CONTINUE TO MONITOR THE PT.
--- NOTE | 2022-07-22 07:26 | NUR ---
ENDORSED PT TO DAY SHIFT RN FOR CONTINUITY OF CARE. PT IS STABLE.
--- NOTE | 2022-07-22 07:26 | NUR ---
RECEIVED REPORT FROM NIGHTSHIFT NURSE JOSE FOR CONTINUITY OF CARE. PT IN STABLE CONDITION, CURRENTLY SLEEPING. PT IS ABLE TO NOD YES/NO BUT IS APHASIC DUE TO TRACH. PT IS TRACH TO VENT, FIO2 25% WITH SPO2 AT 98%. PT IS INCONTINENT OF THE BOWEL AND BLADDER WITH JOHNSON TO GRAVITY AND RECTAL TUBE IN PLACE. REPORTED WOUND ON THE SACRUM. PT IS IN STABLE CONDITION.
[2022-07-22 07:28] LABS: BASOPHILS % (AUTO) 0.1 % (0.0-2.0); EOSINOPHILS # (AUTO) 0.1 K/uL (0-0.4); EOSINOPHILS % (AUTO) 0.5 % (0.0-4.0); HEMATOCRIT 29.9 % (36-48); LYMPHOCYTES # (AUTO) 1.4 K/uL (2.5-16.5); LYMPHOCYTES % (AUTO) 9.8 % (20.5-51.1); MEAN CORPUSCULAR HEMOGLOBIN 31 pg (27-31); MEAN CORPUSCULAR HGB CONC 33 g/dL (33-37); MONOCYTES # (AUTO) 0.8 K/uL (0.8-1.0); MONOCYTES % (AUTO) 5.9 % (1.7-9.3); NEUTROPHILS % (AUTO) 83.7 % (42.2-75.2); PLATELET COUNT (AUTO) 127 K/uL (140-450); RED BLOOD CELL COUNT(AUTO) 3.18 MIL/uL (4.20-5.40); RED CELL DISTRIBUTION WIDTH 17.9 % (11.6-13.7); WHITE BLOOD COUNT (AUTO) 14.4 K/uL (4.8-10.8)
[2022-07-22 08:00] VITALS: BP 101/41
--- NOTE | 2022-07-22 08:16 | NUR ---
RECEIVED CALL FROM [facility] ON BEHALF OF DR. GUTIÉRREZ, REPORT NO OVERNIGHT INCIDENTS, PER MD, PT IS PENDING PLACEMENT PRIOR TO DISCHARGE.
[2022-07-22 08:46] LABS: ANION GAP 12.9 (8-16); CARBON DIOXIDE 29.6 mmol/L (21-32); CHLORIDE 98 mmol/L (98-107); CREATININE 3.6 mg/dL (0.6-1.3); GLUCOSE 116 mg/dL (74-106); POTASSIUM 3.5 mmol/L (3.5-5.1); SODIUM SERUM 137 mmol/L (136-145); UREA NITROGEN, BLOOD 30 mg/dL (7-18)
[2022-07-22] MEDS: hydrALAZINE 10 MG TAB NG SCH (09:00)
--- NOTE | 2022-07-22 09:10 | NUR ---
NO RESIDUAL NOTED FROM G-TUBE. PT MEDICATED
[2022-07-22] MEDS: PANTOPRAZOLE 40 MG INJ VIAL IVP SCH (09:39)
[2022-07-22] MEDS: methylPREDNISolone SS 40 MG/ML VIAL IVP SCH (09:39)
[2022-07-22] MEDS: QUEtiapine FUMARATE 25 MG TAB PO SCH ×2 (09:40→21:00)
--- NOTE | 2022-07-22 09:55 | NUR ---
VISUALLY ASSESSED PT, NO SIGNS OF PAIN OR DISTRESS NOTED AT THIS TIME.
--- NOTE | 2022-07-22 11:30 | NUR ---
VISUALLY ASSESSED PT, NO SIGNS OF PAIN OR DISTRESS NOTED AT THIS TIME.
[2022-07-22 12:00] VITALS: BP 103/40
--- NOTE | 2022-07-22 13:00 | NUR ---
PERFORMED BED BATH AND LINEN CHANGE. CHANGED CENTRAL LINE DRESSING AND INJECTION CAPS. PT IN STABLE CONDITION.
--- NOTE | 2022-07-22 15:00 | NUR ---
VISUALLY ASSESSED PT, NO SIGNS OF PAIN OR DISTRESS NOTED AT THIS TIME.
[2022-07-22 16:00] VITALS: BP 105/45
[2022-07-22] MEDS ORDERED: DOCU-299 PO (16:11)
[2022-07-22] MEDS ORDERED: ALBU3SOL83 IH ×2 (16:11)
[2022-07-22] MEDS ORDERED: GLUC-805 FS (16:11)
[2022-07-22] MEDS ORDERED: LANTUS SUBQ (16:11)
[2022-07-22] MEDS ORDERED: QUET25TA46 PO (16:11)
[2022-07-22] MEDS ORDERED: APR10 NG (16:11)
[2022-07-22] MEDS ORDERED: HUMSLIDE SUBQ (16:11)
--- NOTE | 2022-07-22 17:00 | NUR ---
VISUALLY ASSESSED PT, NO SIGNS OF PAIN OR DISTRESS NOTED AT THIS TIME.
--- NOTE | 2022-07-22 19:17 | NUR ---
ENDORSED PT TO NIGHTSHIFT NURSE DARLING FOR CONTINUITY OF CARE. PT IS IN STABLE CONDITION.
[2022-07-22 20:00] VITALS: BP 90/60
[2022-07-22] MEDS: INSULIN LANTUS 100 UNITS/ML 10 ML VIAL SUBQ SCH (22:05)
[2022-07-23] VITALS: BP 111/59
--- NOTE | 2022-07-23 | NUR ---
ROUNDS , NO S/SX OF ACUTE DISTRESS NOTED , WILL CONT. TO MONITOR .
[2022-07-23] MEDS: BLOOD GLUCOSE MONITORING 1 DEV DEV FS SCH ×4 (01:00→18:08)
[2022-07-23] MEDS: INSULIN LISPRO SLIDING SCALE 100 UNITS/ML VIAL SUBQ PRN ×2 (01:19→18:14)
[2022-07-23 04:00] VITALS: BP 90/56
--- NOTE | 2022-07-23 04:30 | NUR ---
BP RE CHECK 80/40 - SC 74 , O2 SAT 100 %- REFER TO DR. GUTIÉRREZ Addendum: 07/23/22 at 0621 by Marly Doshi RN NO RESPONSE TO DR. GUTIÉRREZ PER TEXT - SO I CALL HIM DIRECTLY - PER DR. GUTIÉRREZ STAT NSS 500 CC BOLUS ONE DOSE .
[2022-07-23] MEDS ORDERED: NACL 0.9% 500 ML IV STA (05:10)
--- NOTE | 2022-07-23 06:00 | NUR ---
BP RE CHECK 90/58 - WILL CONT. TO MONITOR
--- NOTE | 2022-07-23 06:22 | NUR ---
BP RE CHECK 90/60 , MO 75 , O2 SAT 100 % - WILL CONT. TO MONITOR .
--- NOTE | 2022-07-23 06:25 | NUR ---
TRIED TO CALL [facility] NURSE - NO ANSWER - LEFT MSG I INFORMED HD NURSE PT IS FOR SCHED HD TODAY . - WILL ENDORSE
[2022-07-23] MEDS: ALBUTEROL SULFATE/IPRATROPIU 3 ML SOL IH SCH ×3 (06:56→20:00)
--- NOTE | 2022-07-23 07:24 | NUR ---
INFORMED DR. GUTIÉRREZ AFTER 500 NSS BOLUS BP IMPROVED 130/60 , BUT 0 U.O - FOR HD TODAY - ENDORSED TO DELANEY BONILLA FOR CONT. OF CARE , ON SALINE LOCK .
--- NOTE | 2022-07-23 07:30 | NUR ---
RECEIVED PT ON ACVC, 14,450,+5,24%. VENT PLUGGED INTO RED OUTLET, WHEELS ARE LOCKED, ALARMS ARE SET AND AUDIBLE, AMBUBAG AT BEDSIDE. NO RESPIRATORY DISTRESS NOTED, EQUAL BILATERAL CHEST RISE. SATURATION 99% ON 24% FI02. WILL CONTINUE TO MONITOR.
[2022-07-23 07:32] LABS: BASOPHILS % (AUTO) 0.1 % (0.0-2.0); EOSINOPHILS # (AUTO) 0.2 K/uL (0-0.4); EOSINOPHILS % (AUTO) 1.5 % (0.0-4.0); HEMATOCRIT 26.1 % (36-48); HEMOGLOBIN 8.8 g/dL (12.0-16.0); LYMPHOCYTES # (AUTO) 1.7 K/uL (2.5-16.5); LYMPHOCYTES % (AUTO) 16.2 % (20.5-51.1); MEAN CORPUSCULAR HEMOGLOBIN 32 pg (27-31); MEAN CORPUSCULAR HGB CONC 34 g/dL (33-37); MONOCYTES # (AUTO) 0.7 K/uL (0.8-1.0); MONOCYTES % (AUTO) 6.8 % (1.7-9.3); NEUTROPHILS # (AUTO) 8.1 K/uL (1.8-7.7); NEUTROPHILS % (AUTO) 75.4 % (42.2-75.2); PLATELET COUNT (AUTO) 110 K/uL (140-450); RED BLOOD CELL COUNT(AUTO) 2.77 MIL/uL (4.20-5.40); RED CELL DISTRIBUTION WIDTH 17.5 % (11.6-13.7); WHITE BLOOD COUNT (AUTO) 10.7 K/uL (4.8-10.8)
[2022-07-23 07:56] LABS: ANION GAP 14.8 (8-16); CARBON DIOXIDE 28.6 mmol/L (21-32); CHLORIDE 98 mmol/L (98-107); GLUCOSE 147 mg/dL (74-106); POTASSIUM 3.4 mmol/L (3.5-5.1); SODIUM SERUM 138 mmol/L (136-145); UREA NITROGEN, BLOOD 45 mg/dL (7-18)
[2022-07-23 08:00] VITALS: BP 113/36
[2022-07-23 08:18] LABS: CREATININE 4.8 mg/dL (0.6-1.3)
[2022-07-23] MEDS: hydrALAZINE 10 MG TAB NG SCH (09:00)
[2022-07-23] MEDS: PANTOPRAZOLE 40 MG INJ VIAL IVP SCH (09:53)
[2022-07-23] MEDS: QUEtiapine FUMARATE 25 MG TAB PO SCH ×2 (09:53→20:29)
[2022-07-23] MEDS: methylPREDNISolone SS 40 MG/ML VIAL IVP SCH (09:53)
[2022-07-23 12:00] VITALS: BP 88/39
[2022-07-23] MEDS ORDERED: LOPERAMIDE 2 MG CAP GT SCH (15:00)
[2022-07-23] MEDS: PSYLLIUM 12.2 GM/PKT GT SCH (15:44)
[2022-07-23 16:00] VITALS: BP 115/40
--- NOTE | 2022-07-23 19:30 | NUR ---
RECEIVED REPORT FROM DAY SHIFT NURSE. NO S/S OF DISTRESS. CALL LIGHT IN REACH . ALL SAFETY MEASURES IN PLACE. IV SL. GTUBE FEEDING RUNNING PER MD ORDER
[2022-07-23 20:00] VITALS: BP 92/43
[2022-07-23] MEDS: MIDODRINE 5 MG TAB PO SCH (20:29)
[2022-07-23] MEDS: INSULIN LANTUS 100 UNITS/ML 10 ML VIAL SUBQ SCH (21:42)
--- NOTE | 2022-07-23 22:37 | NUR ---
PT RECTAL TUBE LEAKING. PT CLEANED AND CHANGED. NO S/S OF DISTRESS. CALL LIGHT IN REACH. ALL SAFETY MEASURES IN PLACE
--- NOTE | 2022-07-23 23:53 | NUR ---
RECEIVED REPORT TO CONTINUE CARE TO PATIENT FROM LACY RN, PATIENT WAS STABLE DURING THE TRANSFER OF CARE. PATIENT WAS NOTED ASLEEP. NURSING NOTED PATIENT CHEST RISING AND FALLING WITHOUT DISTRESS. SIDE RAILS UP X 3 FOR SAFETY AND ADJUSTMENT. CALL LIGHT WITHIN REACH. NURSING WILL FREQUENT THIS ROOM IN ANTICIPATION OF ASSISTANCE AND NEEDS. [email or web address]
[2022-07-24] VITALS: BP 122/46
--- NOTE | 2022-07-24 | NUR ---
PATIENT NOTED IN BED ASLEEP. NO S/S OF PAIN/DISCOMFORT. PATIENT WAS ABLE TO LIFT HER HANDS TO MOVE ABOUT OR TOUCH HER FACE. NO NOTED RESPIRATORY DISTRESS WHILE ON THE TRACH VENT. CALL LIGHT WITHIN REACH. SIDE RAILS UP X 3 FOR SAFETY. NURSING WILL FREQUENT THIS ROOM IN ANTICIPATION FOR NEEDS. [email or web address]
--- NOTE | 2022-07-24 03:13 | NUR ---
PATIENT IS IN THE BED ASLEEP WITHOUT DISTRESS. [email or web address]
[2022-07-24 04:00] VITALS: BP 133/41
[2022-07-24 06:09] LABS: BASOPHILS % (AUTO) 0.3 % (0.0-2.0); EOSINOPHILS # (AUTO) 0.2 K/uL (0-0.4); EOSINOPHILS % (AUTO) 1.6 % (0.0-4.0); HEMATOCRIT 32.2 % (36-48); HEMOGLOBIN 10.6 g/dL (12.0-16.0); LYMPHOCYTES # (AUTO) 1.5 K/uL (2.5-16.5); LYMPHOCYTES % (AUTO) 13.2 % (20.5-51.1); MEAN CORPUSCULAR HEMOGLOBIN 32 pg (27-31); MEAN CORPUSCULAR HGB CONC 33 g/dL (33-37); MEAN CORPUSCULAR VOLUME 95.9 fL (80-94); MONOCYTES # (AUTO) 0.8 K/uL (0.8-1.0); MONOCYTES % (AUTO) 7.5 % (1.7-9.3); NEUTROPHILS # (AUTO) 8.7 K/uL (1.8-7.7); NEUTROPHILS % (AUTO) 77.4 % (42.2-75.2); PLATELET COUNT (AUTO) 136 K/uL (140-450); RED BLOOD CELL COUNT(AUTO) 3.36 MIL/uL (4.20-5.40); RED CELL DISTRIBUTION WIDTH 17.4 % (11.6-13.7); WHITE BLOOD COUNT (AUTO) 11.2 K/uL (4.8-10.8)
[2022-07-24 06:32] LABS: ANION GAP 11.9 (8-16); CHLORIDE 100 mmol/L (98-107); CREATININE 3.3 mg/dL (0.6-1.3); GLUCOSE 109 mg/dL (74-106); POTASSIUM 3.9 mmol/L (3.5-5.1); SODIUM SERUM 137 mmol/L (136-145); UREA NITROGEN, BLOOD 33 mg/dL (7-18)
[2022-07-24] MEDS: BLOOD GLUCOSE MONITORING 1 DEV DEV FS SCH ×4 (06:47→18:50)
--- NOTE | 2022-07-24 06:48 | NUR ---
PATIENT HAS BEEN STABLE ALL NIGHT NO S/S OF RESPIRATORY DISTRESS. NO S/S OF PAIN/DISCOMFORT. NURSING WILL ENDORSE TO DAY SHIFT. [email or web address]
--- NOTE | 2022-07-24 07:17 | NUR ---
RECEIVED REPORT FROM NIGHTSHIFT NURSE ISABEL FOR CONTINUITY OF CARE. PT IN STABLE CONDITION, CURRENTLY SLEEPING. PT IS ABLE TO NOD YES/NO BUT IS APHASIC DUE TO TRACH. PT IS TRACH TO VENT, FIO2 24% WITH SPO2 AT 100%. PT IS INCONTINENT OF THE BOWEL AND BLADDER WITH JOHNSON TO GRAVITY AND RECTAL TUBE IN PLACE. REPORTED WOUND ON THE SACRUM. PT IS IN STABLE CONDITION.
--- NOTE | 2022-07-24 07:17 | NUR ---
ENDORSED PATIENT TO ENRICO RN, PATIENT WAS STABLE AT SHIFT REPORT. LAST BP WAS 133/41 AND ENDORSED TO AM NURSE TO NOT GIVE OR RECHECK BP BEFORE GIVING MEDICATION. [email or web address]
[2022-07-24 08:00] VITALS: BP 103/45
[2022-07-24] MEDS: PSYLLIUM 12.2 GM/PKT GT SCH (09:00)
--- NOTE | 2022-07-24 09:00 | NUR ---
VISUALLY ASSESSED PT, NO SIGNS OF PAIN OR DISTRESS NOTED AT THIS TIME.
[2022-07-24] MEDS: ALBUTEROL SULFATE/IPRATROPIU 3 ML SOL IH SCH ×3 (10:25→20:00)
[2022-07-24] MEDS: PANTOPRAZOLE 40 MG INJ VIAL IVP SCH (10:40)
[2022-07-24] MEDS: QUEtiapine FUMARATE 25 MG TAB PO SCH ×2 (10:41→21:29)
[2022-07-24] MEDS: methylPREDNISolone SS 40 MG/ML VIAL IVP SCH (10:49)
[2022-07-24] MEDS: MIDODRINE 5 MG TAB PO SCH ×3 (10:53→19:41)
--- NOTE | 2022-07-24 11:00 | NUR ---
VISUALLY ASSESSED PT, NO SIGNS OF PAIN OR DISTRESS NOTED AT THIS TIME.
[2022-07-24] MEDS ORDERED: fentaNYL citrate 0.05 MG/ML - 50mL vial IV ONE (11:15)
[2022-07-24] MEDS ORDERED: SEVOFLURANE 250 ML BTL INH ONE (11:15)
[2022-07-24] MEDS ORDERED: ROCURONIUM 50 MG/5 ML VIAL IV ONE (11:15)
[2022-07-24 12:00] VITALS: BP 110/43
[2022-07-24] MEDS: INSULIN LISPRO SLIDING SCALE 100 UNITS/ML VIAL SUBQ PRN ×2 (12:02→18:50)
--- NOTE | 2022-07-24 12:08 | NUR ---
SLIDING SCALE INSULIN ADMINISTERED FOR BS 188. PT TOLERATED WELL. RN AWARE.
--- NOTE | 2022-07-24 13:00 | NUR ---
VISUALLY ASSESSED PT, NO SIGNS OF PAIN OR DISTRESS NOTED AT THIS TIME.
--- NOTE | 2022-07-24 15:00 | NUR ---
VISUALLY ASSESSED PT, NO SIGNS OF PAIN OR DISTRESS NOTED AT THIS TIME.
[2022-07-24 16:00] VITALS: BP 100/40
--- NOTE | 2022-07-24 17:00 | NUR ---
VISUALLY ASSESSED PT, NO SIGNS OF PAIN OR DISTRESS NOTED AT THIS TIME.
--- NOTE | 2022-07-24 19:30 | NUR ---
ENDORSED PT TO NIGHTSHIFT NURSE KATHLEEN FOR CONTINUITY OF CARE, PT IN STABLE CONDITION.
--- NOTE | 2022-07-24 19:30 | NUR ---
RECEIVED REPORT FROM DAY SHIFT NURSE MARLENE FOR CONTINUITY OF CARE. PATIENT IS A&O X1. PATIENT IS ON TRACH TO VENT; BREATHING IS NORMAL WITH SYMMETRICAL RISE AND FALL OF CHEST. PATIENT HAS A CENTRAL LINE; TRIPLE LUMEN IN THE RIGHT FEMORAL. PATIENT HAS A CATHETER AND A RECTAL TUBE. PATIENT IS ON G-TUBE FEEDING OF NEPRO RUNNING 35CC/HR WITH WATER FLUSH 100 CC Q8H. PATIENT IS SLEEPING, LYING IN SEMI-FOWLERS POSITION. BED IS IN LOWEST POSITION, WHEELS LOCKED, CALL LIGHT IN PLACE. WILL CONTINUE TO OBSERVE PATIENT.
[2022-07-24 20:00] VITALS: BP 106/44
[2022-07-24] MEDS: INSULIN LANTUS 100 UNITS/ML 10 ML VIAL SUBQ SCH (21:25)
--- NOTE | 2022-07-24 21:35 | NUR ---
OBTAINED PATIENT 0000 VITALS. VITALS WERE: BP 106/44, O2 100, RR 18, TEMP 97.3. ADMINISTERED 2100 MEDICATIONS PATIENT TOLERATED WELL. PATIENT IS SLEEPING. BREATHING IS NORMAL WITH SYMMETRICAL RISE AND FALL OF CHEST. WILL CONTINUE TO OBSERVE PATIENT.
[2022-07-25] VITALS: BP 120/45
[2022-07-25] MEDS: BLOOD GLUCOSE MONITORING 1 DEV DEV FS SCH ×4 (00:18→17:11)
[2022-07-25] MEDS: INSULIN LISPRO SLIDING SCALE 100 UNITS/ML VIAL SUBQ PRN ×3 (00:22→17:14)
--- NOTE | 2022-07-25 00:30 | NUR ---
OBTAINED PATIENT'S BS; BS WAS 160. ADMINISTERED 2 UNITS OF HUMALOG FOR COVERAGE. PATIENT TOLERATED WELL. SUCTIONED PATIENT'S MOUTH AND TRACH. PATIENT TOLERATED WELL. WILL CONTINUE TO OBSERVE PATIENT.
--- NOTE | 2022-07-25 02:50 | NUR ---
LOOKED IN ON PATIENT. PATIENT WAS SLEEPING; BREATHING WAS NORMAL WITH SYMMETRICAL RISE AND FALL OF CHEST. WILL CONTINUE TO OBSERVE PATIENT.
[2022-07-25 04:00] VITALS: BP 105/44
--- NOTE | 2022-07-25 04:30 | NUR ---
PATIENT BANDAGE OVER SACRAL WOUND WAS CHANGED. WOUND WAS RINSED WITH NS AND PAT DRY WITH DRESSING. PATIENT WAS DIFFICULT TO MOVE DURING BANDAGE CHANGE. PATIENT IS BREATHING NORMALLY WITH SYMMETRICAL RISE AND FALL OF CHEST. WILL CONTINUE TO OBSERVE PATIENT.
[2022-07-25] MEDS: MIDODRINE 5 MG TAB PO SCH ×3 (06:42→19:06)
--- NOTE | 2022-07-25 07:30 | NUR ---
RECEIVED REPORT FROM NIGHTSHIFT NURSE KATHLEEN FOR CONTINUITY OF CARE. PT IN STABLE CONDITION, CURRENTLY SLEEPING. PT IS ABLE TO NOD YES/NO BUT IS APHASIC DUE TO TRACH. PT IS TRACH TO VENT, FIO2 24% WITH SPO2 AT 100%. PT IS INCONTINENT OF THE BOWEL AND BLADDER WITH JOHNSON TO GRAVITY AND RECTAL TUBE IN PLACE, LAST ANNOTATED MITALI WAS 275ML. DRESSING ON SACRUM CLEAN, DRY, AND INTACT. PT IS IN STABLE CONDITION.
--- NOTE | 2022-07-25 07:30 | NUR ---
ENDORSED TO DAY SHIFT NURSE MARLENE FOR CONTINUITY OF CARE. PATIENT IS STABLE.
[2022-07-25] MEDS: ALBUTEROL SULFATE/IPRATROPIU 3 ML SOL IH SCH ×3 (07:35→19:56)
[2022-07-25 08:00] VITALS: BP 130/45
--- NOTE | 2022-07-25 09:30 | NUR ---
VISUALLY ASSESSED PT, NO SIGNS OF PAIN OR DISTRESS NOTED AT THIS TIME.
[2022-07-25] MEDS: methylPREDNISolone SS 40 MG/ML VIAL IVP SCH (09:37)
[2022-07-25] MEDS: QUEtiapine FUMARATE 25 MG TAB PO SCH ×2 (09:37→21:59)
[2022-07-25] MEDS: PSYLLIUM 12.2 GM/PKT GT SCH (09:38)
[2022-07-25] MEDS: PANTOPRAZOLE 40 MG INJ VIAL IVP SCH (09:38)
--- NOTE | 2022-07-25 11:30 | NUR ---
VISUALLY ASSESSED PT, NO SIGNS OF PAIN OR DISTRESS NOTED AT THIS TIME.
[2022-07-25 12:00] VITALS: BP 129/48
--- NOTE | 2022-07-25 13:30 | NUR ---
VISUALLY ASSESSED PT, NO SIGNS OF PAIN OR DISTRESS NOTED AT THIS TIME.
--- NOTE | 2022-07-25 15:30 | NUR ---
VISUALLY ASSESSED PT, NO SIGNS OF PAIN OR DISTRESS NOTED AT THIS TIME.
[2022-07-25 16:00] VITALS: BP 144/54
--- NOTE | 2022-07-25 17:30 | NUR ---
VISUALLY ASSESSED PT, NO SIGNS OF PAIN OR DISTRESS NOTED AT THIS TIME.
--- NOTE | 2022-07-25 19:28 | NUR ---
ENDORSED PT TO NIGHTSHIFT NURSE KATHLEEN FOR CONTINUITY OF CARE. PT IN STABLE CONDITION.
--- NOTE | 2022-07-25 19:30 | NUR ---
RECEIVED REPORT FROM DAY SHIFT NURSE MARLENE FOR CONTINUITY OF CARE. PATIENT IS A&O X1. PATIENT IS ON TRACH TO VENT; BREATHING IS NORMAL WITH SYMMETRICAL RISE AND FALL OF CHEST. PATIENT HAS A CENTRAL LINE; TRIPLE LUMEN IN THE RIGHT FEMORAL; RUNNING NO FLUIDS AT THIS TIME (SALINE LOCKED). PATIENT HAS A CATHETER AND A RECTAL TUBE. PATIENT IS ON G-TUBE FEEDING OF NEPRO RUNNING 35CC/HR WITH WATER FLUSH 100 CC Q8H. PATIENT IS SLEEPING, LYING IN SEMI-FOWLERS POSITION. BED IS IN LOWEST POSITION, WHEELS LOCKED, CALL LIGHT IN PLACE. WILL CONTINUE TO OBSERVE PATIENT.
[2022-07-25 20:00] VITALS: BP 142/51
--- NOTE | 2022-07-25 20:25 | NUR ---
07/25/22 RD FOLLOW UP COMPLETED.PLEASE REFER TO NUTRITION ASSESSMENT UNDER CARE ACTIVITY FOR ESTIMATED NUTRITIONAL NEEDS. 1. CONTINUE WITH NEPRO @35 ML/HR TOLERATED -FWF: 100 ML Q8H OR PER MD -PT WILL RECEIVE 1512 KCAL AND 68 GRAMS PROTEIN, MEETING 100% OF PTS ESTIMATED ENERGY NEEDS 2. MONITOR GASTRIC RESIDUAL 3. RD TO FOLLOW-UP IN 3-5 DAYS PATIENT IS MODERATE RISK. ESTELITA CLARK RD
[2022-07-25] MEDS: INSULIN LANTUS 100 UNITS/ML 10 ML VIAL SUBQ SCH (22:00)
--- NOTE | 2022-07-25 22:15 | NUR ---
PATIENT 2000 VITALS WERE: BP 142/51, HR 65, O2 100, RR 18, TEMP 97.0. PATIENT IS SLEEPING, LYING SUPINE. ADMINISTERED MEDICATION VIA G-TUBE. PATIENT TOLERATED WELL. ADMINISTERED LANTUS AND HEPARIN, PATIENT TOLERATED WELL. PATIENT WAS SUCTIONED TWICE. BREATHING IS NORMAL WITH SYMMETRICAL RISE AND FALL OF CHEST. WILL CONTINUE TO OBSERVE PATIENT.
[2022-07-26] VITALS (10 sets, daily range): BP systolic 98–145; BP diastolic 46–58
--- NOTE | 2022-07-26 | NUR ---
PT. LANTUS INSULIN 20 UNITS VIA SUBQ GIVEN TO RIGHT UPPER ARM. PT. TOLERATED PROCEDURE WELL.
[2022-07-26] MEDS: BLOOD GLUCOSE MONITORING 1 DEV DEV FS SCH ×4 (00:58→17:39)
--- NOTE | 2022-07-26 01:00 | NUR ---
OBTAINED PATIENT'S 0000 VITALS. VITALS WERE: BP 124/52, HR 81, O2 99, RR 18, TEMP 97.5. PATIENT WAS SLEEPING LYING IN SEMI-FOWLERS POSITION. FEEDING WAS RUNNING. BREATHING WAS NORMAL WITH SYMMETRICAL RISE AND FALL OF CHEST. WILL CONTINUE TO OBSERVE PATIENT.
[2022-07-26] MEDS: INSULIN LISPRO SLIDING SCALE 100 UNITS/ML VIAL SUBQ PRN ×4 (01:04→17:38)
--- NOTE | 2022-07-26 03:00 | NUR ---
PATIENT WAS REPOSITIONED WITH ASSISTANCE OF NURSE BASS. NEW FOAM DRESSING WAS PLACED OVER SACRAL WOUND. PATIENT TOLERATED WELL. WILL CONTINUE TO OBSERVE PATIENT.
[2022-07-26] MEDS: MIDODRINE 5 MG TAB PO SCH ×3 (07:10→18:33)
--- NOTE | 2022-07-26 07:20 | NUR ---
BS WAS OBTAINED; BS WAS 192, 2 UNITS OF HUMALOG WAS GIVEN FOR COVERAGE. MIDODRINE WAS GIVEN TO PATIENT IN G-TUBE. FEEDING IS STILL RUNNING. WILL ENDORSE CARE TO DAY SHIFT.
--- NOTE | 2022-07-26 07:30 | NUR ---
ENDORSED TO DAY SHIFT NURSE PUSHPA FOR CONTINUITY OF CARE. PATIENT IS STABLE.
--- NOTE | 2022-07-26 07:30 | NUR ---
RECEIVED PT CARE AND REPORT FROM KATHLEEN BALTAZAR. PT IS RESTING IN BED ON RIGHT SIDE WITH OU CLOSED. TRACH TO VENT. TUBE FEEDING RUNNING. NO VISIBLE S/S OF DISTRESS, DISCOMFORT, PAIN OR SOB. CALL LIGHT IS WITHIN REACH, ALL NEEDS MET AT THIS TIME.
[2022-07-26] MEDS: ALBUTEROL SULFATE/IPRATROPIU 3 ML SOL IH SCH ×3 (08:32→19:00)
--- NOTE | 2022-07-26 08:32 | NUR ---
RECEIVED ON A [employer] Administration SolutionsSCAPE R860 VENTILATOR PLUGGED INTO RED OUTLET TOLERATING WELL WITHOUT ADVERSE REACTIONS NOTED TO A PORTEX DCT #7 AIRWAY SECURED WITH A THONY TRACH TIE CUFF PRESSURE CHECKED NOTED AMBU BAG AT BEDSIDE RESTING COMFORTABLY GOOD CHEST RISE DEEP TRACHEAL SUCTION FOR LARGE THIN PALE YELLOW SECRETIONS AIRWAY PATENT
--- NOTE | 2022-07-26 08:40 | NUR ---
HEMODIALYSIS IN PROGRESS
[2022-07-26] MEDS: PANTOPRAZOLE 40 MG INJ VIAL IVP SCH (09:32)
[2022-07-26] MEDS: methylPREDNISolone SS 40 MG/ML VIAL IVP SCH (09:32)
[2022-07-26] MEDS: QUEtiapine FUMARATE 25 MG TAB PO SCH ×2 (09:33→21:57)
[2022-07-26] MEDS: EPOETIN ALFA-EPBX 4,000 UNITS/ML VIAL IV SCH (09:33)
[2022-07-26] MEDS: PSYLLIUM 12.2 GM/PKT GT SCH (09:33)
--- NOTE | 2022-07-26 09:51 | NUR ---
TEXTED DR. LIU TO REPORT PLATELETS LEVEL OF 136 ON TUESDAY 07/24 AND ASKED IF IT IS OKAY TO GIVE HEPARIN 5000U WITH AM MEDICATIONS. DR. LIU STATED IT IS OKAY TO ADMINISTER. WILL ADMINISTER ORDERED.
--- NOTE | 2022-07-26 10:21 | NUR ---
NO DISTRESS NOTED GOOD CHEST RISE DEEP TRACHEAL SUCTION FOR LARGE THIN PALE YELLOW SECRETIONS AIRWAY PATENT HEMODIALYSIS REMAINS IN PROGRESS FAMILY AT BEDSIDE
[2022-07-26 10:56] LABS: BASOPHILS % (AUTO) 0.2 % (0.0-2.0); EOSINOPHILS # (AUTO) 0.3 K/uL (0-0.4); EOSINOPHILS % (AUTO) 1.7 % (0.0-4.0); HEMATOCRIT 29.1 % (36-48); HEMOGLOBIN 9.7 g/dL (12.0-16.0); LYMPHOCYTES # (AUTO) 2.2 K/uL (2.5-16.5); LYMPHOCYTES % (AUTO) 14.6 % (20.5-51.1); MEAN CORPUSCULAR HEMOGLOBIN 31 pg (27-31); MEAN CORPUSCULAR HGB CONC 34 g/dL (33-37); MEAN CORPUSCULAR VOLUME 92.4 fL (80-94); MONOCYTES # (AUTO) 0.8 K/uL (0.8-1.0); MONOCYTES % (AUTO) 5.6 % (1.7-9.3); NEUTROPHILS # (AUTO) 11.6 K/uL (1.8-7.7); NEUTROPHILS % (AUTO) 77.9 % (42.2-75.2); PLATELET COUNT (AUTO) 167 K/uL (140-450); RED BLOOD CELL COUNT(AUTO) 3.15 MIL/uL (4.20-5.40); RED CELL DISTRIBUTION WIDTH 16.7 % (11.6-13.7); WHITE BLOOD COUNT (AUTO) 14.9 K/uL (4.8-10.8)
[2022-07-26 11:13] LABS: ANION GAP 10.2 (8-16); CARBON DIOXIDE 31.4 mmol/L (21-32); CHLORIDE 97 mmol/L (98-107); CREATININE 2.6 mg/dL (0.6-1.3); GLUCOSE 146 mg/dL (74-106); POTASSIUM 3.6 mmol/L (3.5-5.1); SODIUM SERUM 135 mmol/L (136-145); UREA NITROGEN, BLOOD 31 mg/dL (7-18)
--- NOTE | 2022-07-26 14:07 | NUR ---
NO SOB NOTED GOOD CHEST RISE DEEP TRACHEAL SUCTION FOR SMALL THIN PALE YELLOW SECRETIONS AIRWAY PATENT
--- NOTE | 2022-07-26 15:36 | NUR ---
FEEDING AND TUBING CHANGED. CONTINUED FEEDING AND WATER FLUSHES AT PREVIOUS SETTINGS.
--- NOTE | 2022-07-26 17:30 | NUR ---
FEEDING PUMP CONTINUOUSLY PAUSING AND BEEPING THROUGHOUT SHIFT. TUBING CHANGED X2, SETTINGS COMPLETELY RESET X2. INFORMED HOUSE SUP SHAYNE AND REQUESTED NEW FEEDING PUMP. NO OTHER PUMPS AVAILABLE. G-TUBE WAS FLUSHED X3 WITH NO RESISTANCE AND FLUSHING SMOOTHLY.
--- NOTE | 2022-07-26 18:58 | NUR ---
PT IS RESTING ON RIGHT SIDE WITH OU CLOSED, NO VISIBLE S/S OF DISTRESS, DISCOMFORT, PAIN OR SOB. APHASIC. FEEDING PUMP CONTINUOUSLY PAUSING. CALL LIGHT IS WITHIN REACH, ALL NEEDS MET AT THIS TIME. FAMILY AT BEDSIDE. WILL ENDORSE TO NOC SHIFT.
[2022-07-26] MEDS: INSULIN LANTUS 100 UNITS/ML 10 ML VIAL SUBQ SCH (21:00)
[2022-07-27] VITALS: BP 133/52
[2022-07-27] MEDS: BLOOD GLUCOSE MONITORING 1 DEV DEV FS SCH ×4 (00:05→17:25)
[2022-07-27 04:00] VITALS: BP 124/46
[2022-07-27 05:12] LABS: BASOPHILS % (AUTO) 0.1 % (0.0-2.0); EOSINOPHILS # (AUTO) 0.1 K/uL (0-0.4); HEMATOCRIT 30.7 % (36-48); HEMOGLOBIN 10.3 g/dL (12.0-16.0); LYMPHOCYTES # (AUTO) 2.5 K/uL (2.5-16.5); LYMPHOCYTES % (AUTO) 18.5 % (20.5-51.1); MEAN CORPUSCULAR HEMOGLOBIN 31 pg (27-31); MEAN CORPUSCULAR HGB CONC 33 g/dL (33-37); MEAN CORPUSCULAR VOLUME 92.6 fL (80-94); MONOCYTES # (AUTO) 1.1 K/uL (0.8-1.0); NEUTROPHILS # (AUTO) 9.7 K/uL (1.8-7.7); NEUTROPHILS % (AUTO) 72.4 % (42.2-75.2); PLATELET COUNT (AUTO) 189 K/uL (140-450); RED BLOOD CELL COUNT(AUTO) 3.32 MIL/uL (4.20-5.40); WHITE BLOOD COUNT (AUTO) 13.4 K/uL (4.8-10.8)
[2022-07-27 05:17] LABS: ANION GAP 14.6 (8-16); CARBON DIOXIDE 29.6 mmol/L (21-32); CHLORIDE 96 mmol/L (98-107); CREATININE 3.7 mg/dL (0.6-1.3); GLUCOSE 105 mg/dL (74-106); POTASSIUM 4.2 mmol/L (3.5-5.1); SODIUM SERUM 136 mmol/L (136-145); UREA NITROGEN, BLOOD 39 mg/dL (7-18)
[2022-07-27] MEDS: MIDODRINE 5 MG TAB PO SCH ×3 (06:57→19:00)
--- NOTE | 2022-07-27 07:50 | NUR ---
Received pt alert and nonverbal, trach to vent. Able to mouth words and nod to questions. Sinus rhythm on tele monitor. G-tube intact and patent tolerating feeding well with no gastric residual. Cm catheter intact and draining to bedside drainage. Rectal tube in place. AV shunt on left arm with positive bruit and thrill. Right femoral central line intact and saline locked. Safety precautions in place.
[2022-07-27 08:00] VITALS: BP 136/51
[2022-07-27] MEDS: ALBUTEROL SULFATE/IPRATROPIU 3 ML SOL IH SCH ×3 (08:13→19:13)
[2022-07-27] MEDS: QUEtiapine FUMARATE 25 MG TAB PO SCH ×2 (09:19→21:00)
[2022-07-27] MEDS: PSYLLIUM 12.2 GM/PKT GT SCH (09:19)
[2022-07-27] MEDS: methylPREDNISolone SS 40 MG/ML VIAL IVP SCH (09:20)
[2022-07-27] MEDS: PANTOPRAZOLE 40 MG INJ VIAL IVP SCH (09:20)
[2022-07-27 12:00] VITALS: BP 147/46
--- NOTE | 2022-07-27 13:45 | NUR ---
Seen and examined by Dr. Vee.
[2022-07-27 16:00] VITALS: BP 120/46
--- NOTE | 2022-07-27 17:56 | NUR ---
PT NOT IN ANY DISTRESS AT THIS TIME. FAMILY IS BEDSIDE. ALARMS ON AND FUNCTIONING.
--- NOTE | 2022-07-27 18:00 | NUR ---
PT RESTING IN BED COMFORTABLY. PT FAMILY AT BEDSIDE.
--- NOTE | 2022-07-27 19:20 | NUR ---
ENDORSED TO HOLDER PILE DRIVING NURSE ARUN FOR CONTINUITY OF CARE.
--- NOTE | 2022-07-27 19:21 | NUR ---
RECEIVED ENDORSEMENT FROM EMILIANA BALTAZAR, PATIENT WAS STABLE DURING SHIFT REPORT. PATIENT HAD NO NOTED S/S OF PAIN/DISCOMFORT. PATIENT HAS NO NOTED S/S OF RESPIRATORY DISTRESS WHILE ON TRACH VENT. FAMILY AT BEDSIDE. PATIENT ON BED REST. NURSING ENDORSED THE FEEDING TUBE MACHINE WAS NOT WORKING APPROPRIATELY. NURSING WILL REPORT TO NURSING MOTOR LODGE CLERK OF NEW FEEDING MACHINE. NURSING WILL ALSO REQUEST A NEW RECTAL TUBE BAG. PATIENT'S WOUND WAS CHANGED BY AM SHIFT NURSE. SIDE RAILS UP X 4 FOR SAFETY. CALL LIGHT WITHIN REACH FOR MENTAL STIMULATION. NURSING WILL FREQUENT THE ROOM FOR ANTICIPATED NEEDS. [email or web address]
[2022-07-27 20:00] VITALS: BP 120/48
[2022-07-27] MEDS: INSULIN LANTUS 100 UNITS/ML 10 ML VIAL SUBQ SCH (21:00)
--- NOTE | 2022-07-27 22:03 | NUR ---
Patient's Plan of Care was discussed and reviewed with ARUN PAODACA,CALL LIGHT IS WITHIN THE REACH, WILL CONTINUE TO MONITOR PATIENT.
[2022-07-28] VITALS: BP 103/46
--- NOTE | 2022-07-28 00:43 | NUR ---
PATIENT WAS ASLEEPING WITH HOB ELEVATED TO IMPROVE RESPIRATION. ALL FUNCTION ON THE VENT WERE WORKING AND NURSING NOTED CHEST RISING AND FALLING. NO NOTED S/S OF PAIN/DISCOMFORT. NO NOTED RESPIRATORY DISTRESS. CALL LIGHT WITHIN REACH FOR ANY AND ALL ASSISTANCE. BED NOTED AT THE LOWEST LEVEL FOR SAFETY. NURSING WILL FREQUET THIS ROOM FOR ANTICIPATED ASSISTANCE. [email or web address]
--- NOTE | 2022-07-28 03:17 | NUR ---
PATIENT ASLEEP WITHOUT INCIDENT. NO NOTED S/S PAIN/DISCOMFORT. NO NOTED S/S RESPIRATORY DISTRESS. SIDE RAILS UP X 3 FOR SAFETY AND COMFORT. NURSING WILL FREQUENT THE ROOM FOR ANTICIPATED ASSISTANCE. [email or web address]
[2022-07-28 04:00] VITALS: BP 103/45
--- NOTE | 2022-07-28 05:38 | NUR ---
PATIENT REMAIN ASLEEP WITHOUT RESPIRATORY DISTRESS. PATIENT'S FEEDING TUBE WILL NOT CONTINUE WITHOUT INCIDENT. MD WAS NOTIFIED AND OKAY TO CHANGE THE ORDER TO BOLUS FOR NOW. NURSING WILL NOTE IN THE ORDERS AND ENDORSE TO AM SHIFT NURSE. [email or web address]
[2022-07-28 06:12] LABS: ANION GAP 14.2 (8-16); CHLORIDE 97 mmol/L (98-107); GLUCOSE 93 mg/dL (74-106); POTASSIUM 4.2 mmol/L (3.5-5.1); SODIUM SERUM 137 mmol/L (136-145); UREA NITROGEN, BLOOD 47 mg/dL (7-18)
[2022-07-28 06:14] LABS: BASOPHILS % (AUTO) 0.2 % (0.0-2.0); EOSINOPHILS # (AUTO) 0.2 K/uL (0-0.4); EOSINOPHILS % (AUTO) 1.6 % (0.0-4.0); HEMATOCRIT 28.4 % (36-48); HEMOGLOBIN 9.5 g/dL (12.0-16.0); LYMPHOCYTES # (AUTO) 1.7 K/uL (2.5-16.5); LYMPHOCYTES % (AUTO) 16.3 % (20.5-51.1); MEAN CORPUSCULAR HEMOGLOBIN 31 pg (27-31); MEAN CORPUSCULAR HGB CONC 33 g/dL (33-37); MEAN CORPUSCULAR VOLUME 93.2 fL (80-94); MONOCYTES # (AUTO) 0.9 K/uL (0.8-1.0); MONOCYTES % (AUTO) 8.5 % (1.7-9.3); NEUTROPHILS # (AUTO) 7.5 K/uL (1.8-7.7); NEUTROPHILS % (AUTO) 73.4 % (42.2-75.2); PLATELET COUNT (AUTO) 181 K/uL (140-450); RED BLOOD CELL COUNT(AUTO) 3.04 MIL/uL (4.20-5.40); RED CELL DISTRIBUTION WIDTH 16.6 % (11.6-13.7); WHITE BLOOD COUNT (AUTO) 10.2 K/uL (4.8-10.8)
[2022-07-28] MEDS: BLOOD GLUCOSE MONITORING 1 DEV DEV FS SCH ×4 (06:20→18:00)
--- NOTE | 2022-07-28 06:31 | NUR ---
NOTIFIED OR CRITICAL LAB VALUE OF CREATININE AT 4.9. NO NEW ORDERS AT THIS TIME. [email or web address]
[2022-07-28 06:43] LABS: CREATININE 4.9 mg/dL (0.6-1.3)
[2022-07-28] MEDS: MIDODRINE 5 MG TAB PO SCH ×3 (07:00→21:45)
--- NOTE | 2022-07-28 07:17 | NUR ---
ENDORSED PATIENT TO CHAD BALTAZAR, PATIENT WAS STABLE AT SHIFT REPORT. [email or web address]
[2022-07-28] MEDS: ALBUTEROL SULFATE/IPRATROPIU 3 ML SOL IH SCH ×3 (07:45→19:47)
[2022-07-28 08:00] VITALS: BP 101/43
[2022-07-28] MEDS: PANTOPRAZOLE 40 MG INJ VIAL IVP SCH (09:57)
[2022-07-28] MEDS: QUEtiapine FUMARATE 25 MG TAB PO SCH ×2 (09:57→21:44)
[2022-07-28] MEDS: methylPREDNISolone SS 40 MG/ML VIAL IVP SCH (09:57)
[2022-07-28] MEDS: EPOETIN ALFA-EPBX 4,000 UNITS/ML VIAL IV SCH (09:58)
[2022-07-28 12:00] VITALS: BP 88/37
[2022-07-28 16:00] VITALS: BP 115/59
--- NOTE | 2022-07-28 19:15 | NUR ---
RECEIVED REPORT FROM MORNING SHIFT NURSE. PT IS LYING ON THE BED, WITH 3 RELATIVES ON BEDSIDE. PT IS APHASIC BUT SHE CAN NOD. PT IS ON TRACH TO VENT WITH FIO2-24, VT-450, RATE OF 14, PMAX OF 40 AND PEEP OF 5. PT HAS JOHNSON CATHETER. PT HAS RIGHT TRIPLE LUMEN IN GROIN, SALINE LOCK. PT HAS PRESSURE ULCER ON COCCYX. PT HAS G-TUBE AND HAS LEFT ARM AV SHUNT. ALL SAFETY MEASURES IMPLEMENTED. BED IN LOW POSITION, BED WHEELS ON LOCKED AND CALL LIGHT WITHIN REACH.
[2022-07-28 20:00] VITALS: BP 104/45
[2022-07-28] MEDS: INSULIN LANTUS 100 UNITS/ML 10 ML VIAL SUBQ SCH (21:00)
--- NOTE | 2022-07-28 21:47 | NUR ---
ALL SCHEDULED AND PRESCRIBED MEDICATION WAS GIVEN TO PT PER MD ORDER. ALL SAFETY MEASURES IMPLEMENTED. BED IN LOW POSITION, BED WHEELS ON LOCKED AND CALL LIGHT WITHIN REACH.
[2022-07-29] VITALS: BP 96/40
[2022-07-29] MEDS: INSULIN LISPRO SLIDING SCALE 100 UNITS/ML VIAL SUBQ PRN ×3 (00:02→17:22)
[2022-07-29] MEDS: BLOOD GLUCOSE MONITORING 1 DEV DEV FS SCH ×4 (00:02→18:13)
--- NOTE | 2022-07-29 00:02 | NUR ---
PT BLOOD GLUCOSE IS 167. HUMALOG INSULIN 2 UNIT WAS GIVEN TO PT PER MD ORDER. ALL SAFETY MEASURES IMPLEMENTED. BED IN LOW POSITION, BED WHEELS ON LOCKED AND CALL LIGHT WITHIN REACH.
--- NOTE | 2022-07-29 02:00 | NUR ---
PT IS ON SLEEP. CHEST RISE AND FALL SYMMETRICALLY NOTED. RESPIRATION IS EVEN AND UNLABORED. ALL SAFETY MEASURES IMPLEMENTED. BED WHEELS ON LOCKED, BED IN LOW POSITION AND CALL LIGHT WITHIN REACH.
--- NOTE | 2022-07-29 03:00 | NUR ---
HANGED NEW G-TUBE FEEDING OF NEPHRO 1.8 35ML/HR WITH WATER FLUSH OF 100ML EVERY 8 HRS. ALL SAFETY MEASURES IMPLEMENTED. BED WHEELS ON LOCKED, BED IN LOW POSITION AND CALL LIGHT WITHIN REACH.
[2022-07-29 04:00] VITALS: BP 112/47
--- NOTE | 2022-07-29 04:00 | NUR ---
MORNING CARE WAS DONE TO PT. CHANGED LINENS, GOWN AND CHUCKS. PT WAS ALSO GIVEN WARM BLANKET. ALL SAFETY MEASURES IMPLEMENTED. BED WHEELS ON LOCKED, BED IN LOW POSITION AND CALL LIGHT WITHIN REACH.
--- NOTE | 2022-07-29 05:36 | NUR ---
DEXTROSE 5% ABBOJECT 50ML IV PUSH WAS GIVEN TO PT PER MD ORDER DUE TO BLOOD GLUCOSE OF 60. ALL SAFETY MEASURES IMPLEMENTED. BED WHEELS ON LOCKED, BED IN LOW POSITION AND CALL LIGHT WITHIN REACH.
[2022-07-29] MEDS: MIDODRINE 5 MG TAB PO SCH ×3 (06:27→18:16)
--- NOTE | 2022-07-29 06:27 | NUR ---
SCHEDULED AND PRESCRIBED MEDICATION WAS GIVEN TO PT PER MD ORDER. ALL SAFETY MEASURES IMPLEMENTED. BED WHEELS ON LOCKED, BED IN LOW POSITION AND CALL LIGHT WITHIN REACH.
[2022-07-29 06:40] LABS: BASOPHILS % (AUTO) 0.2 % (0.0-2.0); EOSINOPHILS # (AUTO) 0.1 K/uL (0-0.4); EOSINOPHILS % (AUTO) 0.6 % (0.0-4.0); HEMATOCRIT 29.3 % (36-48); HEMOGLOBIN 9.9 g/dL (12.0-16.0); LYMPHOCYTES # (AUTO) 1.8 K/uL (2.5-16.5); LYMPHOCYTES % (AUTO) 11.9 % (20.5-51.1); MEAN CORPUSCULAR HEMOGLOBIN 31 pg (27-31); MEAN CORPUSCULAR HGB CONC 34 g/dL (33-37); MEAN CORPUSCULAR VOLUME 93.2 fL (80-94); MONOCYTES # (AUTO) 0.7 K/uL (0.8-1.0); NEUTROPHILS # (AUTO) 12.3 K/uL (1.8-7.7); NEUTROPHILS % (AUTO) 82.3 % (42.2-75.2); PLATELET COUNT (AUTO) 185 K/uL (140-450); RED BLOOD CELL COUNT(AUTO) 3.14 MIL/uL (4.20-5.40); RED CELL DISTRIBUTION WIDTH 16.8 % (11.6-13.7); WHITE BLOOD COUNT (AUTO) 14.9 K/uL (4.8-10.8)
[2022-07-29] MEDS: ALBUTEROL SULFATE/IPRATROPIU 3 ML SOL IH SCH ×3 (07:01→19:03)
[2022-07-29 07:03] LABS: ANION GAP 15.5 (8-16); CARBON DIOXIDE 29.8 mmol/L (21-32); CHLORIDE 101 mmol/L (98-107); CREATININE 3.3 mg/dL (0.6-1.3); GLUCOSE 56 mg/dL (74-106); POTASSIUM 3.3 mmol/L (3.5-5.1); SODIUM SERUM 143 mmol/L (136-145); UREA NITROGEN, BLOOD 28 mg/dL (7-18)
--- NOTE | 2022-07-29 07:30 | NUR ---
RECEIVED PT ON AC 450,14,+5,24%.VENT WHEELS ARE LOCKED, PLUGGED INTO RED OUTLET, AMBUBAG AT BEDSIDE. ALARMS ARE SET AND AUDIBLE. GOOD CHEST RISE, NO DISTRESS NOTED. COARSE BREATH SOUNDS, SUCTIONED MOD AMOUNT THICK SECRETIONS. SATURATION 98%
--- NOTE | 2022-07-29 07:35 | NUR ---
[facility] PT APHASIC. IN NO ACUTE DISTRESS. NO SOB. TRACH TO VENT: A/C FIO2 @ 24%, TV 450, R14, PEEP5. HOB ELEVATED. JOHNSON VIA GRAVITY. RECTAL TUBE VIA GRAVITY. R GROIN TRIPPLE LUMEN DRESSING C/D/I. NEPHRO 1.8 @ 35 ML/HR WITH H20 FLUSH 100 ML/Q8HR. L ARM AV SHUNT. NEEDS ALL MET AT THIS TIME. ALL SAFETY MEASURES IN PLACE.
--- NOTE | 2022-07-29 07:47 | NUR ---
PT IS STABLE. ENDORSED PT TO MORNING SHIFT NURSE FO CONTINUITY OF CARE.
[2022-07-29 08:00] VITALS: BP 73/47
[2022-07-29] MEDS ORDERED: POTASSIUM CHLORIDE 20% 40 MEQ/15 ML UDC GT PRN (08:30)
--- NOTE | 2022-07-29 08:30 | NUR ---
CONTACTED MD REGARDING NIGHTSHIFT NURSE STATING PT'S DAUGHTER MISTY ENDORSING PT'S CODE STATUS. MD AWARE AND PHONE NUMBER PROVIDED TO MD. ALSO CONTACTED MD FOR POTASSIUM LEVEL. NEW ORDERS INPUTTED. Addendum: 07/29/22 at 0836 by Agency 02 RN RN WRONG ENTRY
--- NOTE | 2022-07-29 08:30 | NUR ---
CONTACTED MD REGARDING PT'S POTASSIUM LEVEL. NEW ORDERS INPUTTED.
[2022-07-29] MEDS: QUEtiapine FUMARATE 25 MG TAB PO SCH ×2 (09:55→21:24)
[2022-07-29] MEDS: methylPREDNISolone SS 40 MG/ML VIAL IVP SCH (09:56)
[2022-07-29] MEDS: PANTOPRAZOLE 40 MG INJ VIAL IVP SCH (09:56)
--- NOTE | 2022-07-29 11:00 | NUR ---
DISCHARGE PLANNING [employer] AND VETO MEET WITH PATIENT'S FAMILY ALL THREE DAUGHTERS OF PATIENT TO DISCUSS PATIENT'S STATUS AND SITUATION WITH INSURANCE AND COVERAGE. FAMILY IS FRENCH SPEAKING THEREFORE; [employer] TRANSLATE INFORMATION CM WAS PROVIDING TO FAMILY ABOUT MEDICARE NOT COVERING FOR PATIENT DIALYSIS TRANSPORT 3 TIMES A WEEK AND SHARE COST NECESSARY FROM THE FAMILY. FAMILY ACKNOWLEDGED THE INFORMATION AND AGREED THAT INSURANCE NEEDS TO BE CHANGE AND DAUGHTER RONNIE STATED THAT SHE WILL BE MAKING CHANGES ON PATIENT'S INSURANCE TO FACILITATE COVERAGE, ALSO DAUGHTER RE REQUESTED A VERIFICATION LETTER TO [employer] AND WILL BE PICKING IT UP WITH IN AN HOUR TO [place] TO HER WORK. [employer] AGREED AND WILL PROVIDE LETTER TO THE FAMILY SW/CM WILL FOLLOW UP WITH PATIENT'S NEEDS ON CASE. Addendum: 08/04/22 at 1633 by Robby GATES [facility] E-MAILED TO LESLIE BORREGO TO FOLLOW
--- NOTE | 2022-07-29 11:10 | NUR ---
CHECKED PT'S BP AND PT'S BP LOW. CONTACTED MD AND MD ORDER 2L NS BOLUS AND INSTRUCTED THAT IF PT'S BP DOES NOT INCREASE, SEND TO ICU. STARTED 1L NS BOLUS.
[2022-07-29] MEDS ORDERED: NACL 0.9% 1,000 ML IV SCH (11:30)
[2022-07-29 12:00] VITALS: BP 111/43
--- NOTE | 2022-07-29 12:10 | NUR ---
BP = 111/43, HR 86. 1L NS BOLUS COMPLETED. STARTED NEW 1L NS BOLUS. PT'S DAUGHTER AT BEDSIDE. PT WITH 0ML GT RESIDUAL. TOLERATING GT FEEDING.
[2022-07-29] MEDS ORDERED: NACL 0.9% 500 ML IV SCH (12:30)
--- NOTE | 2022-07-29 13:49 | NUR ---
SECOND 1L NS BOLUS COMPLETED. BP = 148/60, HR 84. PT SUCTIONED. NO SOB OR RESPIRATORY DISTRESS. FIO2 @ 24%, TV450, R14, PEEP 5. O2 SATURATION @ 100%. HOB ELEVATED SEMI-FOWLERS. GT FEEDING INFUSING. NEEDS ALL MET AT THIS TIME. ALL SAFETY MEASURES IN PLACE.
[2022-07-29 16:00] VITALS: BP 145/58
--- NOTE | 2022-07-29 17:26 | NUR ---
PT'S FAMILY AT BEDSIDE AND STATES PT IS LESS RESPONSIVE THAN YESTERDAY. PT IS REACTIVE TO STIMULI. CONTACTED MD AND MD ORDER FOR AMMONIA LEVEL AND CHEST XRAY.
--- NOTE | 2022-07-29 18:00 | NUR ---
PT IS AWAKE WITH EYES OPEN. RESPONSIVE TO VERBAL STIMULI. EYES ARE OPEN. FAMILY AT BEDSIDE. PT IN NO ACUTE DISTRESS. HOB ELEVATED. NEEDS ALL MET AT THIS TIME.
--- NOTE | 2022-07-29 19:11 | NUR ---
REPORT GIVEN TO NIGHTSHIFT NURSEJOSE FOR CONTINUITY OF CARE.
--- NOTE | 2022-07-29 19:15 | NUR ---
RECEIVED REPORT FROM DAY SHIFT RN GAGANDEEP FOR CONTINUITY OF CARE. PT IS AWAKE WITH FAMILY BY BEDSIDE. PT IS TRACH TO VENT. SETTINGS: FIO2 24% VT 450, RT 14, PEEP 5. PT SATING 99%. PT HAS RECTAL TUBE. PT HAS FC DRAINING CLEAR YELLOW URINE. PT HAS RIGHT FEMORAL TRIPLE LUMEN CATHETER SALINE LOCK. BED AT THE LOWEST POSITION. HEAD OF THE BED RAISED. WILL CONTINUE TO MONITOR THE PT.
[2022-07-29 20:00] VITALS: BP 129/52
[2022-07-29] MEDS: INSULIN LANTUS 100 UNITS/ML 10 ML VIAL SUBQ SCH (21:23)
--- NOTE | 2022-07-29 21:30 | NUR ---
SCHEDULE MEDICATIONS GIVEN. NO ADVERSE REACTION NOTED. WILL CONTINUE TO MONITOR THE PT.
[2022-07-30] VITALS: BP 133/55
[2022-07-30] MEDS: BLOOD GLUCOSE MONITORING 1 DEV DEV FS SCH ×4 (00:55→17:40)
[2022-07-30] MEDS: INSULIN LISPRO SLIDING SCALE 100 UNITS/ML VIAL SUBQ PRN ×3 (00:55→11:51)
--- NOTE | 2022-07-30 00:57 | NUR ---
PT BLOOD GLUCOSE IS 297. 6 UNITS OF INSULIN GIVEN. PT NOT IN ANY ACUTE DISTRESS. PT IS SATING 99%. WILL CONTINUE TO MONITOR THE PT.
[2022-07-30 04:00] VITALS: BP 125/55
--- NOTE | 2022-07-30 04:00 | NUR ---
PT OBSERVED. PT IS SLEEPING COMFORTABLY IN BED. PT NOT IN ANY ACUTE DISTRESS. VITAL SIGNS STABLE.
--- NOTE | 2022-07-30 05:23 | NUR ---
BLOOD GLUCOSE CHECKED AND IT IS 201. 4 UNITS OF HUMALOG GIVEN.
[2022-07-30 06:19] LABS: ANION GAP 10.8 (8-16); CARBON DIOXIDE 28.4 mmol/L (21-32); CHLORIDE 103 mmol/L (98-107); GLUCOSE 195 mg/dL (74-106); POTASSIUM 4.2 mmol/L (3.5-5.1); SODIUM SERUM 138 mmol/L (136-145); UREA NITROGEN, BLOOD 46 mg/dL (7-18)
[2022-07-30] MEDS: MIDODRINE 5 MG TAB PO SCH ×3 (06:20→18:29)
[2022-07-30 06:35] LABS: BASOPHILS % (AUTO) 0.1 % (0.0-2.0); CREATININE 4.2 mg/dL (0.6-1.3); EOSINOPHILS # (AUTO) 0.1 K/uL (0-0.4); EOSINOPHILS % (AUTO) 0.7 % (0.0-4.0); HEMATOCRIT 28.4 % (36-48); HEMOGLOBIN 9.1 g/dL (12.0-16.0); LYMPHOCYTES # (AUTO) 1.8 K/uL (2.5-16.5); LYMPHOCYTES % (AUTO) 10.2 % (20.5-51.1); MEAN CORPUSCULAR HEMOGLOBIN 31 pg (27-31); MEAN CORPUSCULAR HGB CONC 32 g/dL (33-37); MEAN CORPUSCULAR VOLUME 94.8 fL (80-94); MONOCYTES # (AUTO) 1.1 K/uL (0.8-1.0); MONOCYTES % (AUTO) 6.3 % (1.7-9.3); NEUTROPHILS # (AUTO) 14.8 K/uL (1.8-7.7); NEUTROPHILS % (AUTO) 82.7 % (42.2-75.2); PLATELET COUNT (AUTO) 169 K/uL (140-450); RED CELL DISTRIBUTION WIDTH 17.1 % (11.6-13.7); WHITE BLOOD COUNT (AUTO) 17.9 K/uL (4.8-10.8)
[2022-07-30] MEDS: ALBUTEROL SULFATE/IPRATROPIU 3 ML SOL IH SCH ×3 (07:00→20:01)
--- NOTE | 2022-07-30 07:30 | NUR ---
RECEIVED REPORT FROM [facility] NURSE[facility]. PT APHASIC, BLIND BILATERAL EYES. NO SOB. IN NO ACUTE DISTRESS. TRACH TO VENT. FIO2 @ 24%, TV 450, R14, PEEP 5. O2 SATURATION @ 100%. HOB SEMI FOWLERS. ON ENVIRONMENTAL SCIENCE PROGRAM DIRECTOR. HANY AV WITH DRESSING. GTUBE FEEDING INFUSING ON LUQ WITH NEPHRO 1.8 @ 35 ML/HR WITH WATER FLUSH 100 ML/Q8HR. 0 ML RESIDUAL. JOHNSON VIA GRAVITY. CENTRAL LINE ON R GROIN TRIPLE LUMEN, SL. DRESSING C/D/I. RECTAL TUBE IN PLACE. NEEDS ALL MET AT THIS TIME. PLAN FOR DIALYSIS TODAY. ALL SAFETY MEASURES IN PLACE.
[2022-07-30 08:00] VITALS: BP 128/52
--- NOTE | 2022-07-30 08:30 | NUR ---
CONTACTED DIALYSIS NURSE X3 WITH NO PICKUP.
[2022-07-30] MEDS: EPOETIN ALFA-EPBX 4,000 UNITS/ML VIAL IV SCH (09:39)
[2022-07-30] MEDS: methylPREDNISolone SS 40 MG/ML VIAL IVP SCH (09:39)
[2022-07-30] MEDS: QUEtiapine FUMARATE 25 MG TAB PO SCH ×2 (09:39→20:39)
[2022-07-30] MEDS: PANTOPRAZOLE 40 MG INJ VIAL IVP SCH (09:39)
--- NOTE | 2022-07-30 11:00 | NUR ---
RECTAL TUBE POUCH CHANGED.
[2022-07-30 12:00] VITALS: BP 144/55
[2022-07-30] MEDS: ACETAMINOPHEN 325 MG TAB PO PRN (12:13)
--- NOTE | 2022-07-30 13:30 | NUR ---
HD STARTED AT BEDSIDE. PER FAMILY REQUEST, FAMILY BROUGHT LIDOCAINE CREAM FOR DIALYSIS NURSE TO APPLY TO AV FISTULA SITE BEFORE STARTING HD. ENDORSED TO DIALYSIS NURSE. PT IN NO ACUTE DISTRESS. DIALYSIS NURSE AT BEDSIDE.
[2022-07-30 16:00] VITALS: BP 124/50
--- NOTE | 2022-07-30 16:00 | NUR ---
HD COMPLETED AT BEDSIDE. 1L OUT. DIALYSIS NURSE REPORTS PT'S BP 98/48. HR 70.
--- NOTE | 2022-07-30 16:30 | NUR ---
BP RECHECK 124/50. PT STABLE. O2 @ 100%. HOB ELEVATED. BED LINENS CHANGED, HYGIENIC CARE PROVIDED FOR PT AND NEW GOWN APPLIED. PT TOLERATED WELL. NO ACUTE DISTRESS. ALL SAFETY MEASURES IN PLACE.
--- NOTE | 2022-07-30 16:44 | NUR ---
07/30/22 RD FOLLOW UP COMPLETED PLEASE REFER TO NUTRITION ASSESSMENT UNDER CARE ACTIVITY FOR ESTIMATED NUTRITIONAL NEEDS. 1. CONTINUE WITH NEPRO @35 ML/HR TOLERATED -FWF: 100 ML Q8H OR PER MD -PT WILL RECEIVE 1512 KCAL AND 68 GRAMS PROTEIN, MEETING 100% OF PTS ESTIMATED ENERGY NEEDS 2. MONITOR NUTRITION-RELATED LAB VALUES 3. RD TO FOLLOW-UP IN 7 DAYS PATIENT IS LOW RISK. SINDY HERNANDEZ RD
--- NOTE | 2022-07-30 19:23 | NUR ---
REPORT GIVEN TO NIGHTSRIFT NURSE JOSE FOR CONTINUITY OF CARE.
--- NOTE | 2022-07-30 19:25 | NUR ---
RECEIVED REPORT FROM DAY SHIFT RN GAGANDEEP FOR CONTINUITY OF CARE. PT IS AWAKE WITH FAMILY BY BEDSIDE. PT IS TRACH TO VENT. SETTINGS: FIO2 24% VT 450, RT 14, PEEP 5. PT SATING 99%. PT HAS RECTAL TUBE. PT HAS FC DRAINING CLEAR YELLOW URINE. PT HAS CENTRAL LINE ON RIGHT FEMORAL TRIPLE LUMEN CATHETER SALINE LOCK. PT IS ON GTUBE FEEDING. 0 RESIDUAL. ON NEPHRO @35CC/HR WITH FWF 100CC Q8H. SAFETY PRECAUTIONS TAKEN. BED AT THE LOWEST POSITION. HEAD OF THE BED RAISED. WILL CONTINUE TO MONITOR THE PT.
[2022-07-30 20:00] VITALS: BP 137/58
--- NOTE | 2022-07-30 20:40 | NUR ---
SCHEDULE MEDICATIONS GIVEN. NO ADVERSE REACTION NOTED. WILL CONTINUE TO MONITOR THE PT.
[2022-07-30] MEDS: INSULIN LANTUS 100 UNITS/ML 10 ML VIAL SUBQ SCH (20:41)
[2022-07-31] VITALS: BP 124/57
[2022-07-31] MEDS: INSULIN LISPRO SLIDING SCALE 100 UNITS/ML VIAL SUBQ PRN ×2 (00:32→18:49)
[2022-07-31] MEDS: BLOOD GLUCOSE MONITORING 1 DEV DEV FS SCH ×4 (00:32→18:49)
--- NOTE | 2022-07-31 01:40 | NUR ---
PT OBSERVED. PT IS SLEEPING COMFORTABLY IN BED NOT IN ANY RESPIRATORY DISTRESS. PT IS SATING 100%. WILL CONTINUE TO MONITOR THE PT.
[2022-07-31 04:00] VITALS: BP 126/48
--- NOTE | 2022-07-31 04:00 | NUR ---
PT OBSERVED. PT IS SLEEPING COMFORTABLY IN BED. PT NOT IN ANY ACUTE DISTRESS. VITAL SIGNS STABLE.
--- NOTE | 2022-07-31 06:05 | NUR ---
SCHEDULE MEDICATIONS GIVEN. NO ADVERSE REACTION NOTED. WILL CONTINUE TO MONITOR THE PT.
[2022-07-31] MEDS: MIDODRINE 5 MG TAB PO SCH ×3 (06:09→20:25)
--- NOTE | 2022-07-31 07:35 | NUR ---
ENDORSED PT TO DAY SHIFT RN FOR CONTINUITY OF CARE. PT IS STABLE.
[2022-07-31] MEDS: ALBUTEROL SULFATE/IPRATROPIU 3 ML SOL IH SCH ×3 (08:12→19:00)
[2022-07-31] MEDS: methylPREDNISolone SS 40 MG/ML VIAL IVP SCH (09:00)
[2022-07-31] MEDS: PANTOPRAZOLE 40 MG INJ VIAL IVP SCH (09:00)
[2022-07-31] MEDS: QUEtiapine FUMARATE 25 MG TAB PO SCH ×2 (09:00→20:25)
[2022-07-31 13:53] LABS: BASOPHILS % (AUTO) 0.1 % (0.0-2.0); EOSINOPHILS # (AUTO) 0.1 K/uL (0-0.4); EOSINOPHILS % (AUTO) 0.4 % (0.0-4.0); HEMOGLOBIN 9.6 g/dL (12.0-16.0); LYMPHOCYTES # (AUTO) 0.7 K/uL (2.5-16.5); LYMPHOCYTES % (AUTO) 3.6 % (20.5-51.1); MEAN CORPUSCULAR HEMOGLOBIN 31 pg (27-31); MEAN CORPUSCULAR HGB CONC 33 g/dL (33-37); MEAN CORPUSCULAR VOLUME 92.5 fL (80-94); MONOCYTES # (AUTO) 0.6 K/uL (0.8-1.0); MONOCYTES % (AUTO) 3.3 % (1.7-9.3); NEUTROPHILS # (AUTO) 17.1 K/uL (1.8-7.7); NEUTROPHILS % (AUTO) 92.6 % (42.2-75.2); PLATELET COUNT (AUTO) 175 K/uL (140-450); RED BLOOD CELL COUNT(AUTO) 3.13 MIL/uL (4.20-5.40); RED CELL DISTRIBUTION WIDTH 16.5 % (11.6-13.7); WHITE BLOOD COUNT (AUTO) 18.5 K/uL (4.8-10.8)
[2022-07-31 13:55] LABS: ANION GAP 11.7 (8-16); CARBON DIOXIDE 30.3 mmol/L (21-32); CHLORIDE 100 mmol/L (98-107); CREATININE 3.1 mg/dL (0.6-1.3); GLUCOSE 183 mg/dL (74-106); SODIUM SERUM 138 mmol/L (136-145); UREA NITROGEN, BLOOD 38 mg/dL (7-18)
--- NOTE | 2022-07-31 19:30 | NUR ---
RECEIVED REPORT FROM DAY SHIFT RN FOR CONTINUITY OF CARE. PT IS AWAKE WITH FAMILY BY BEDSIDE. PT IS TRACH TO VENT. SETTINGS: FIO2 24% VT 450, RT 14, PEEP 5. PT SATING 99%. PT HAS RECTAL TUBE. PT HAS FC DRAINING CLEAR YELLOW URINE. PT HAS CENTRAL LINE ON RIGHT FEMORAL TRIPLE LUMEN CATHETER SALINE LOCK. PT IS ON GTUBE FEEDING. 0 RESIDUAL. ON NEPHRO @35CC/HR WITH FWF 100CC Q8H. SAFETY PRECAUTIONS TAKEN. BED AT THE LOWEST POSITION. HEAD OF THE BED RAISED. WILL CONTINUE TO MONITOR THE PT.
[2022-07-31 20:00] VITALS: BP 108/87
[2022-07-31] MEDS: INSULIN LANTUS 100 UNITS/ML 10 ML VIAL SUBQ SCH (20:24)
--- NOTE | 2022-07-31 20:25 | NUR ---
SCHEDULE MEDICATIONS GIVEN. NO ADVERSE REACTION NOTED. WILL CONTINUE TO MONITOR THE PT.
[2022-07-31] MEDS: ACETAMINOPHEN 325 MG TAB PO PRN (23:39)
--- NOTE | 2022-07-31 23:46 | NUR ---
PT IS RUNNING FEVER OF 101.2. TYLENOL GIVEN. COOLING MEASURES TAKEN.
[2022-08-01] VITALS: BP 125/54
[2022-08-01] MEDS: INSULIN LISPRO SLIDING SCALE 100 UNITS/ML VIAL SUBQ PRN ×3 (00:36→18:27)
[2022-08-01] MEDS: BLOOD GLUCOSE MONITORING 1 DEV DEV FS SCH ×4 (00:37→18:22)
--- NOTE | 2022-08-01 02:45 | NUR ---
OBSERVED PT. PT IS SLEEPING COMFORTABLY IN BED. PT NOT IN ANY RESPIRATORY DISTRESS. PT SATING 99%. WILL CONTINUE TO MONITOR THE PT.
[2022-08-01 04:00] VITALS: BP 121/54
--- NOTE | 2022-08-01 04:50 | NUR ---
PT WAS CLEANED AND CHANGED. TOLERATED IT WELL. SMALL BM LEAKED FROM RECTAL TUBE.
[2022-08-01] MEDS: ACETAMINOPHEN 325 MG TAB PO PRN (05:35)
--- NOTE | 2022-08-01 05:35 | NUR ---
PT IS STILL RUNNING A FEVER OF 100.4. TYLENOL GIVEN. COOLING MEASURES TAKEN.
[2022-08-01] MEDS: MIDODRINE 5 MG TAB PO SCH ×3 (06:30→22:47)
--- NOTE | 2022-08-01 07:15 | NUR ---
ENDORSED PT TO DAY SHIFT DELANEY BONILLA FOR CONTINUITY OF CARE. PT IS STABLE.
[2022-08-01 08:00] VITALS: BP 145/53
[2022-08-01] MEDS: ALBUTEROL SULFATE/IPRATROPIU 3 ML SOL IH SCH ×3 (08:18→20:05)
[2022-08-01] MEDS: QUEtiapine FUMARATE 25 MG TAB PO SCH ×2 (09:52→21:33)
[2022-08-01] MEDS: methylPREDNISolone SS 40 MG/ML VIAL IVP SCH (09:52)
[2022-08-01] MEDS: PANTOPRAZOLE 40 MG INJ VIAL IVP SCH (09:52)
--- NOTE | 2022-08-01 11:21 | NUR ---
Left message for hemodialysis team nurse, Ana Cristina, for treatment 08/02/22.
[2022-08-01 12:00] VITALS: BP 141/64
[2022-08-01 16:00] VITALS: BP 142/58
--- NOTE | 2022-08-01 19:25 | NUR ---
RECEIVED REPORT FROM DAY NURSE FOR CONTINUITY OF CARE. PATIENT LYING ON THE BED, HOB ELEVATED. PATIENT IS TRACH TO VENT WITH SETTING FI02 24, VT 450, RATE 14, PEEP 5. PATIENT NODS HEAD WHEN ASKED, NO S/S OF PAIN NOTED, NO DISTRESS NOTED. BED IN LOW AND LOCKED POSITION, SAFETY PRECAUTIONS IN PLACE. WILL CONTINUE TO MONITOR THE PATIENT.
[2022-08-01 20:00] VITALS: BP 108/47
--- NOTE | 2022-08-01 21:40 | NUR ---
DUE MEDICATIONS GIVEN ORDERED. MED GIVEN VIA G- TUBE, NO RESIDUAL. PATIENT IS ON TUBE FEEDING, NEPHRO @35ML/HR, FLUSH WATER 100CC Q8HRS. PATIENT HAS RECTAL TUBE, HAS JOHNSON CATHETER, DRAINING LIGHT YELLOW COLORED URINE TO BAG VIA GRAVITY, PATIENT HAS CENTRAL LINE ON RIGHT FEMORAL, TRIPLE LUMEN. SAFETY PRECAUTIONS IN PLACE.
[2022-08-01] MEDS: INSULIN LANTUS 100 UNITS/ML 10 ML VIAL SUBQ SCH (21:54)
[2022-08-02] VITALS: BP 114/48
--- NOTE | 2022-08-02 00:10 | NUR ---
PATIENTS VITALS T 99.0, P 83, BP 114/48, RESP 15 AND O2 SATS 100%. HOB ELEVATED, PATIENT IS NOT SHOWING ANY SIGNS OF PAIN OR DISTRESS. SAFETY PRECAUTIONS IN PLACE. WILL CONTINUE TO MONITOR THE PATIENT.
[2022-08-02] MEDS: BLOOD GLUCOSE MONITORING 1 DEV DEV FS SCH ×4 (00:23→18:13)
[2022-08-02] MEDS: INSULIN LISPRO SLIDING SCALE 100 UNITS/ML VIAL SUBQ PRN ×4 (00:25→18:16)
--- NOTE | 2022-08-02 02:00 | NUR ---
PATIENT ASLEEP AT THIS TIME. VISIBLE CHEST RISE AND FALL NOTED. PATIENT NOT ON ANY DISTRESS. SAFETY MEASURE IN PLACED.
[2022-08-02 04:00] VITALS: BP 108/48
--- NOTE | 2022-08-02 05:37 | NUR ---
CLEANED THE PATIENT G TUBE SITE AND PLACE A NEW DRESSING. ALSO CHANGED THE PATIENT RT GROIN CENTRAL LINE. AM CARE AND MOUTH CARE RENDERED.
[2022-08-02] MEDS: MIDODRINE 5 MG TAB PO SCH ×3 (06:00→19:00)
--- NOTE | 2022-08-02 06:20 | NUR ---
NO ACUTE EVENT THROUGHOUT THE NIGHT. PATIENT STABLE AND NOT ON ANY DISTRESS. ALL NEEDS ATTENDED. CALL LIGHT WITHIN REACH. WILL ENDORSE THE PATIENT TO THE ONCOMING NURSE FOR CONTINUITY OF CARE.
--- NOTE | 2022-08-02 07:23 | NUR ---
ENDORSED PATIENT TO DAY NURSE FOR CONTINUITY OF CARE. PATIENT IS STABLE.
[2022-08-02] MEDS: ALBUTEROL SULFATE/IPRATROPIU 3 ML SOL IH SCH ×3 (07:39→19:52)
[2022-08-02 08:00] VITALS: BP 90/33
[2022-08-02] MEDS: EPOETIN ALFA-EPBX 4,000 UNITS/ML VIAL IV SCH (10:18)
[2022-08-02] MEDS: PANTOPRAZOLE 40 MG INJ VIAL IVP SCH (10:19)
[2022-08-02] MEDS: QUEtiapine FUMARATE 25 MG TAB PO SCH ×2 (10:19→20:45)
[2022-08-02] MEDS: methylPREDNISolone SS 40 MG/ML VIAL IVP SCH (10:19)
[2022-08-02 12:00] VITALS: BP 112/44
[2022-08-02 16:00] VITALS: BP 95/48
[2022-08-02 20:00] VITALS: BP 114/44
--- NOTE | 2022-08-02 20:00 | NUR ---
RECEIVED IN BED NON VERBAL NO S/S OF PAIN NOTED ASSESSMENT COMPLETED PLAN OF CARE REVIEWED WILL CONITNESTEBANE TO MONITOR AND ASSESS GT FEEDING PATENT JOHNSON PATENT RECTAL TUBE INTACT AND PATEDN T
[2022-08-02] MEDS: INSULIN LANTUS 100 UNITS/ML 10 ML VIAL SUBQ SCH (20:47)
[2022-08-03] VITALS: BP 116/51
[2022-08-03] MEDS: INSULIN LISPRO SLIDING SCALE 100 UNITS/ML VIAL SUBQ PRN (00:02)
[2022-08-03] MEDS: BLOOD GLUCOSE MONITORING 1 DEV DEV FS SCH ×2 (00:02→06:00)
[2022-08-03 04:00] VITALS: BP 123/51
--- NOTE | 2022-08-03 06:42 | NUR ---
ALL NEEDS ANTICIPATED AND MET
[2022-08-03] MEDS: MIDODRINE 5 MG TAB PO SCH ×3 (07:00→19:00)
[2022-08-03] MEDS: ALBUTEROL SULFATE/IPRATROPIU 3 ML SOL IH SCH ×3 (07:31→19:00)
[2022-08-03 08:00] VITALS: BP 126/50
[2022-08-03] MEDS: QUEtiapine FUMARATE 25 MG TAB PO SCH ×2 (10:48→21:47)
[2022-08-03] MEDS: PANTOPRAZOLE 40 MG INJ VIAL IVP SCH (10:48)
[2022-08-03] MEDS: methylPREDNISolone SS 40 MG/ML VIAL IVP SCH (10:48)
[2022-08-03 12:00] VITALS: BP 127/57
[2022-08-03 16:00] VITALS: BP 128/51
--- NOTE | 2022-08-03 19:30 | NUR ---
RECEIVED REPORT FROM DAY RN PT RAN TEMP 103 AND 101 WITH NO ACTION TAKEN RECEIVED REPORT THAT RN DID NOT FOLLOW UP WITH RESUMING ACCU CHECK DAY RN MADE AWARE TO COVER SELF AND CALL MD REGARDING TEMP. ASSESSMENT COMPLETED WILL CONTINUE TO MONITOR AND ASSESS
[2022-08-03 20:00] VITALS: BP 127/53
[2022-08-03] MEDS ORDERED: INSULIN LISPRO 100 UNITS/ML VIAL SUBQ SCH (21:45)
[2022-08-03] MEDS: ACETAMINOPHEN 650 MG/20.3 ML UDC PO PRN (21:59)
[2022-08-03] MEDS: INSULIN LANTUS 100 UNITS/ML 10 ML VIAL SUBQ SCH (22:01)
--- NOTE | 2022-08-03 22:38 | NUR ---
PT BLOOD GLUCOSE 429 MD OVALLE MADE AWARE WITH NEW ORDERS TO COVER BLOOD GLUCOSE WITH INSULIN AND SLIDING SCAL RESUMED TYLENOL GIVEN FOR TEMP AND WILL CHANGE PT JOHNSON CATH AND OBTAIN URINE SPECIMEN WILL CONITNUE TO MONITOR AND ASSESS
--- NOTE | 2022-08-03 23:24 | NUR ---
JOHNSON CATH REMOVED AND DISGARDED GOOD KAREEM CARE GIVEN AND NEW 16F JOHNSON CATH INSERTED SECURED TO LEFT LEG URINE SPECIMEN OBTAINED AND SENT TO LAB BOX PT TOLERATED WELL WILL CONITNUE TO MONITOR AND ASSESS
[2022-08-04] VITALS: BP 121/53
[2022-08-04 04:00] VITALS: BP 138/58
[2022-08-04] MEDS: BLOOD GLUCOSE MONITORING 1 DEV DEV FS SCH ×4 (06:30→20:44)
[2022-08-04] MEDS: INSULIN LISPRO SLIDING SCALE 100 UNITS/ML VIAL SUBQ PRN ×4 (06:30→20:50)
[2022-08-04] MEDS: ALBUTEROL SULFATE/IPRATROPIU 3 ML SOL IH SCH ×3 (07:01→19:00)
--- NOTE | 2022-08-04 07:02 | NUR ---
PT TEMP 99.2 WILL ENDORSE TO AM NURSE TO RECOMMEND RECTAL TUBE AND CENTRAL LINE BE REMOVED NEW JOHNSON STARTED 08/03 AT 2330 ALL NEEDS ANTICIPATED PT HAS MINIMAL OUTPUT DUE TO DIALYSIS
[2022-08-04 08:00] VITALS: BP 89/39
--- NOTE | 2022-08-04 08:30 | NUR ---
RECEIVED PATIENT, ALERT AND RESPONSIVE TO PAINFUL STIMULI, SINUS RHYTHM, TRACH TO VENT WITH EVEN AND UNLABORED RESPIRATIONS. PATIENT'S BP CHECK WAS LOW, 89/39, NOTIFIED DR OVALLE AND RECEIVED ORDER FOR 1L NS BOLUS. RIGHT GROIN TL INTACT, RECTAL TUBE AND JOHNSON CATHETER WITH MINIMAL OUTPUT. CLEANED AND REPOSITIONED PATIENT. WILL CONTINUE TO MONITOR.
[2022-08-04] MEDS: QUEtiapine FUMARATE 25 MG TAB PO SCH ×2 (09:00→20:58)
[2022-08-04] MEDS: MIDODRINE 5 MG TAB PO SCH ×3 (09:50→18:02)
[2022-08-04] MEDS: methylPREDNISolone SS 40 MG/ML VIAL IVP SCH (09:50)
[2022-08-04] MEDS: EPOETIN ALFA-EPBX 4,000 UNITS/ML VIAL IV SCH (09:52)
[2022-08-04] MEDS ORDERED: NACL 0.9% 1,000 ML IV SCH (09:55)
[2022-08-04 12:00] VITALS: BP 112/46
--- NOTE | 2022-08-04 14:00 | NUR ---
PATIENT FINISHED WITH HEMODIALYSIS, NO NET OUTPUT PER HD NURSE. PATIENT BP IS STABLE, AFEBRILE AT THIS TIME. CLEANED AND REPOSITIONED PATIENT, PT HAD 1 X LARGE SOFT/FORMED BM THAT PUSHED THE RECTAL TUBE OUT. JOHNSON CATHETER STILL WITH MINIMAL OUTPUT. WOUND CARE DONE TO SACROCOCYX WOUND, BORDERED GAUZE APPLIED. PATIENT IS MORE ALERT, NOW RESPONSIVE TO VERBAL STIMULI. WILL CONTINUE TO MONITOR.
[2022-08-04 16:00] VITALS: BP 120/45
--- NOTE | 2022-08-04 18:33 | NUR ---
PATIENT RESTING IN BED, DAUGHTER AT BEDSIDE. PATIENT IS AWAKE AND RESPONDING TO VERBAL STIMULI. VITAL SIGNS STABLE AT THIS TIME. WILL ENDORSE TO NIGHT RN.
--- NOTE | 2022-08-04 19:25 | NUR ---
RECEIVED ENDORSEMENT FROM DAY SHIFT NURSE FOR CONTINUITY OF PT CARE. PT IS ON BED AWAKE, ALERT AND NON VERBAL. FAMILY IS ON BED SIDE. PT IS ON TRACH TO VENT AND IS ON GTUBE FEEDING OF NEPHRO 1.8 AT 35 ML/HR. GTUBE IS INTACT AND PATENT. GTUBE STOMA IS WNL. PT HAD DIALYSIS TODAY, AV SHUNT ON LEFT FOREARM INTACT AND PATENT. IV 3 LUMENS ON RIGHT UPPER LEG INTACT. FIO2-24, VT-450, PEEP-5, PMAX-40. CONTINUE MONITORING.
[2022-08-04 20:00] VITALS: BP 102/44
--- NOTE | 2022-08-04 20:44 | NUR ---
BLOOD SUGAR CHECKED = 267.
--- NOTE | 2022-08-04 20:50 | NUR ---
INSULIN HUMALOG ADMINISTERED 6 UNITS PER SLIDING SCALE FOR BS 267.
[2022-08-04] MEDS: INSULIN LANTUS 100 UNITS/ML 10 ML VIAL SUBQ SCH (20:57)
[2022-08-05] VITALS: BP 102/44
--- NOTE | 2022-08-05 01:31 | NUR ---
REPOSITIONED PT, PT IS CLOSING HER EYES BUT RESPONSIVE ON STIMULI.
[2022-08-05 04:00] VITALS: BP 110/85
--- NOTE | 2022-08-05 05:30 | NUR ---
PT IS COOPERATIVE. PERSONAL HYGIENE RENDERED. PT BM OF LARGE, SOFT AND FORM. NO FACIAL GRIMACING, SOB OR DISTRESS.
[2022-08-05] MEDS: BLOOD GLUCOSE MONITORING 1 DEV DEV FS SCH ×4 (06:38→20:52)
[2022-08-05] MEDS: INSULIN LISPRO SLIDING SCALE 100 UNITS/ML VIAL SUBQ PRN ×3 (06:39→20:57)
--- NOTE | 2022-08-05 06:39 | NUR ---
BLOOD SUGAR CHECK = 238. INSULIN HUMALOG = 4 UNITS, ADMINISTERED PER SLIDING SCALE. PT TOLERATES WELL.
[2022-08-05] MEDS: MIDODRINE 5 MG TAB PO SCH ×3 (07:08→19:00)
[2022-08-05] MEDS: ALBUTEROL SULFATE/IPRATROPIU 3 ML SOL IH SCH ×2 (07:18→13:04)
--- NOTE | 2022-08-05 07:25 | NUR ---
PT IS SLEEPING AND IS ON STABLE CONDITION. GTUBE FEEDING IS INFUSING WELL. ALL SAFETY MEASURES ARE IN PLACE. ENDORSED TO DAY SHIFT NURSE FOR CONTINUITY OF CARE.
[2022-08-05 08:00] VITALS: BP 85/34
[2022-08-05] MEDS: methylPREDNISolone SS 40 MG/ML VIAL IVP SCH (09:53)
[2022-08-05] MEDS: QUEtiapine FUMARATE 25 MG TAB PO SCH ×2 (09:53→21:23)
[2022-08-05 12:00] VITALS: BP 73/31
[2022-08-05 13:00] VITALS: BP 80/32
--- NOTE | 2022-08-05 13:00 | NUR ---
DISCHARGE PLANNING SW/CM CONTACT PATIENT'S DAUGHTER CLAUDINE OVER THE PHONE TO DISCUSS UPDATES ON THEIR FOLLOW UP WITH CHANGING SECONDARY INSURANCES FOR PATIENT FOR SECONDARY. [place]IE ASKED IF CLAUDINE IS WORKING WITH POLO ABOUT GETTING PATIENT'S INSURANCE CHANGE TO [facility] S[facility]CE, POLO HAS DISCUSSED WITH SW AND VETO 2 TIMES ALREADY ABOUT THIS NEEDED CHANGE AND TOOTIE HAS PROVIDED THE [facility] DIRECT NUMBER TO CALL. PER CLAUDINE SHE IS ASSISTING HER SISTER POLO BUT HAS NOT MADE THE CALL TO [facility] PER CLAUDINE SHE WILL TALK TO HER TODAY AND MAKE THE CALLS THEN WILL CALL SW/CM WITH UPDATES TOMORROW 08/06/2022. SW/CM AGREED AND WILL FOLLOW UP NEEDED.
--- NOTE | 2022-08-05 15:51 | NUR ---
08/05/22 RD FOLLOW UP COMPLETED PLEASE REFER TO NUTRITION ASSESSMENT UNDER CARE ACTIVITY FOR ESTIMATED NUTRITIONAL NEEDS. 1. CONTINUE WITH NEPRO @35 ML/HR TOLERATED -FWF: 100 ML Q8H OR PER MD 2. RECOMMEND NIKKO BID FOR WOUND HEALING - WITH NIKKO BID, PT WILL RECEIVE 1672 KCAL AND 73 GRAMS PROTEIN, MEETING 100% OF PTS ESTIMATED ENERGY NEEDS 3. MONITOR NUTRITION-RELATED LAB VALUES 4. RD TO FOLLOW-UP IN 7 DAYS PATIENT IS LOW RISK. REVIEWED BY SINDY HERNANDEZ RD
[2022-08-05 16:00] VITALS: BP 113/53
[2022-08-05] MEDS ORDERED: SODIUM PHOSPHATE 15 MMOLE in NACL 0.9% 250 ML IV SCH (16:30)
[2022-08-05] MEDS: INSULIN LANTUS 100 UNITS/ML 10 ML VIAL SUBQ SCH (20:58)
[2022-08-05] MEDS: ACETAMINOPHEN 650 MG/20.3 ML UDC PO PRN (21:00)
[2022-08-06] VITALS: BP 143/51
[2022-08-06 04:00] VITALS: BP 114/52
[2022-08-06] MEDS: MIDODRINE 5 MG TAB PO SCH ×3 (06:03→13:00)
[2022-08-06 06:22] LABS: CARBON DIOXIDE 28.1 mmol/L (21-32); CHLORIDE 98 mmol/L (98-107); CREATININE 3.7 mg/dL (0.6-1.3); GLUCOSE 229 mg/dL (74-106); POTASSIUM 5.1 mmol/L (3.5-5.1); SODIUM SERUM 138 mmol/L (136-145)
[2022-08-06 06:25] LABS: UREA NITROGEN, BLOOD 65 mg/dL (7-18)
--- NOTE | 2022-08-06 06:30 | NUR ---
BLOOD SUGAR 242 = 4 UNITS OF INSULIN HUMALOG.
[2022-08-06] MEDS: INSULIN LISPRO SLIDING SCALE 100 UNITS/ML VIAL SUBQ PRN ×4 (06:36→20:46)
[2022-08-06] MEDS: BLOOD GLUCOSE MONITORING 1 DEV DEV FS SCH ×4 (06:37→20:48)
[2022-08-06 08:00] VITALS: BP 124/50
[2022-08-06] MEDS: EPOETIN ALFA-EPBX 4,000 UNITS/ML VIAL IV SCH (09:30)
[2022-08-06] MEDS: methylPREDNISolone SS 40 MG/ML VIAL IVP SCH (09:30)
[2022-08-06] MEDS: QUEtiapine FUMARATE 25 MG TAB PO SCH ×2 (09:31→20:42)
[2022-08-06] MEDS: ALBUTEROL SULFATE/IPRATROPIU 3 ML SOL IH SCH ×2 (10:24→13:00)
--- NOTE | 2022-08-06 11:44 | NUR ---
DC PLANNING: PER NISH OF [place], NO BEDS AT THIS TIME DUE TO ISOLATIONS. NISH REFERRED TO [facility] COORDINATOR TO [facility] [phone]. PER CAMILLA OF [facility], THEY HAVE SUBACUTE BUT NO BEDSIDE DIALYSIS. CAMILLA REFERRED THIS CM TO [facility] AND [facility] AT [phone], ABLE TO SPEAK TO ADMISSIONS. ADMISSIONS CONFIRMED THAT THEY DO BEDSIDE DIALYSIS. HOWEVER, NO SUBAC[facility] BED AVAILABLE BUT MIGHT MIGHT HAVE ONE NEXT WEEK. INFORMED HER THE PATIENT'S INSURANCE IS [employer] [facility] [employer] [facility] SECONDARY. PER ADMISSION, THEY WILL BE REQUIRING AN HUA ONCE BED BECOMES AVAILABLE.
[2022-08-06 12:00] VITALS: BP 130/50
--- NOTE | 2022-08-06 13:25 | NUR ---
@1250 RT GOT A CALL FROM APARTMENT LEASING CONSULTANT ELISABET, SHE STATED PT IS PEAK PRESSURING AND NEEDED RT. RT ARRIVED PT HR IS 144 SPO2 93%. HME WAS CHANGED AND LAVAGED SUCTIONED THE PATIENT. PT RR WENT DOWN TO NORMAL RANGE BUT THE HEART RATE STATED ELEVATED. RT NOTIFIED RN AND CHARGE. PT IS IN NO RESP DISTRESS JUST TACHY AT THIS TIME. NURSE IS WORKING ON GETTING PRN ORDER FOR PT. WILL CONTINUE TO MONITOR.
--- NOTE | 2022-08-06 13:37 | NUR ---
TALKED TO MST CHARGE TO GET AN UPDATE ON PT. SHE STATED WAITING FOR ORDERS FROM . PT HR IS LOWER GRADUALLY. WILL CONTINUE TO MONITOR
--- NOTE | 2022-08-06 14:45 | NUR ---
HEMODIALYSIS PENDING 08/07 DUE TO ELEVATION IN BASAL HEART RATE AFTER ACTIVITIES OF DAILY LIVING, 140-150 BEATS PER MINUTE OVER 30 MINUTES.
[2022-08-06 16:00] VITALS: BP 106/49
--- NOTE | 2022-08-06 16:32 | NUR ---
RN WAS INFORMED OF POSSIBLE TRACH SORE UNDER TRACH . RT NOTICED WHILE DOING TRACH CARE. PT SKIN IS IRRITATED AND RED. COULD BE JUST FROM LOADS OF MUCUS COMING FROM STOMA AREA. WANTED TO SEE IF RN CAN GET A CONSULT FROM WOUND CARE. WILL RELAY MESSAGE TO NOC SHIFT RT.
--- NOTE | 2022-08-06 19:30 | NUR ---
RECEIVED PT IN STABLE CONDITION.TELE IS ON AND SHOWING SR AT PRESENT TIME.RESP.UNLABORED W/VENTILATOR W/FLOW RATE OF 30L/M AND FIO2 40%G-TUBE FEEDING W/NEPRO AT 35ML/H IS IN PROGRESS.NO S/S OF ANY DISTRESS NOTED.WILL CONT.MONITORING.F/C IN PLACE BUT HAS NO URINE OUT PUT.
[2022-08-06 20:00] VITALS: BP 109/48
[2022-08-06] MEDS: SODIUM ZIRCONIUM CYCLOSILICATE 10 GM POWD.PACK PO SCH (20:41)
[2022-08-06] MEDS: INSULIN LANTUS 100 UNITS/ML 10 ML VIAL SUBQ SCH (20:44)
[2022-08-07] VITALS: BP 110/52
--- NOTE | 2022-08-07 00:10 | NUR ---
RT.INFORMED ME THAT PT HAS SORE UNDER TRACH.WILL ENDORSE TO AM NURSE TO TALK W/MD.HR WENT DOWN TO87 AND DIALYSIS NURSE CALLED AND ASKED ABOUT PT'S HR AND SAID NURSE WILL COM IN AM TO DO DIALYSIS.
--- NOTE | 2022-08-07 01:56 | NUR ---
FOLLOWED UP WITH THE NURSE ABOUT [facility] STOMA NEEDING A WOUND CARE CONSULT. NURSE STATED THAT CONSULT WITH WOUND CARE HAD BEEN REQUESTED. WILL CONTINUE TO MONITOR PATIENT AND DO WHAT WE CAN TO PREVENT WORSENING REDNESS AT STOMA SITE.
[2022-08-07 04:00] VITALS: BP 130/57
--- NOTE | 2022-08-07 06:12 | NUR ---
WOUND CONSULT ORDERED.REPOSITIONED Q2H.NO DISTRESS NOTED AT PRESENT TIME.TB=750 WILL COVER.G-T FEEDING IN PROGRESS.
[2022-08-07] MEDS: MIDODRINE 5 MG TAB PO SCH ×4 (06:19→19:08)
--- NOTE | 2022-08-07 06:20 | NUR ---
MIDODRINE DIDN'T ADMINISTER DUE TO PARAMETER(HOLD IF SB>120).PT'S ZG=[phone]
[2022-08-07] MEDS: INSULIN LISPRO SLIDING SCALE 100 UNITS/ML VIAL SUBQ PRN ×3 (06:24→17:11)
[2022-08-07] MEDS: BLOOD GLUCOSE MONITORING 1 DEV DEV FS SCH ×4 (07:48→21:00)
[2022-08-07 08:00] VITALS: BP 94/35
[2022-08-07] MEDS: methylPREDNISolone SS 40 MG/ML VIAL IVP SCH (09:55)
[2022-08-07] MEDS: QUEtiapine FUMARATE 25 MG TAB PO SCH ×2 (09:56→21:00)
[2022-08-07] MEDS: SODIUM ZIRCONIUM CYCLOSILICATE 10 GM POWD.PACK PO SCH (09:56)
[2022-08-07] MEDS ORDERED: ALBUMIN HUMAN 25% 100 ML IV ONE ×2 (10:15→10:19)
[2022-08-07] MEDS ORDERED: ALBUMIN HUMAN 25% 100 ML IV SCH (10:20)
[2022-08-07] MEDS ORDERED: VANCOMYCIN PER PHARMACY MC PRN (10:45)
[2022-08-07 12:00] VITALS: BP 85/33
[2022-08-07] MEDS: PIPERACILLIN/TAZOBACTAM 2.25 GM in DEXTROSE 5% 50 ML IV SCH ×2 (13:19→21:00)
[2022-08-07] MEDS ORDERED: VANCOMYCIN 1,000 MG in DEXTROSE 5% 250 ML IV SCH (14:00)
[2022-08-07 16:57] VITALS: BP 97/50
--- NOTE | 2022-08-07 17:50 | NUR ---
NURSE CALLED BECAUSE PT APPEARED TO BE IN DISTRESS. UPON ARRIVAL PT WAS TACHY (127 bpm) AND TACHYPNIC (34 BPM). ACCORDING TO WAVE FORMS PT APPEARED TO BE AIRTRAPPING. TRIED TO HELP HER BY INCREASING FLOW AND DECREASING itIME. MARGINAL IMPROVEMENT SEEN. CHANGED MODE TO PRVC. AT THIS POINT PT VOLUMES WERE GOOD (431) AND PEAK PRESSURE WAS FINE (17). NO INDICATION THAT IT IS A RESPIRATORY ISSUE HR IS STILL ELEVATED IS RESPIRATORY RATE. ASKED NURSE TO GIVE HER PAIN MEDS OR SEDATION. HE SAID HE COULD GIVE HER SOMETHING.
--- NOTE | 2022-08-07 19:30 | NUR ---
CALLED [facility] TO REPORT PT'S . TALKED TO TANJA. THEN TANJA TOLD ME WAIT FOR THE DEPUTY TO CALL. Addendum: 08/08/22 at 0101 by Anika Houston RN WRONG TIME IT SHOULD BE 2130
--- NOTE | 2022-08-07 20:00 | NUR ---
RECEIVED PT FROM MORNING NURSE. PT IS LYING ON THE BED, BEDBOUND AND RELATIVES BEDSIDE. PT IS ON TRACH TO VENT FI02-30, VT-450, PMAX-14, PEEP OF 5. PT HAS JOHNSON CATHETER AND HAS G-TUBE RUNNING WITH NEPHRO 1.2 35ML/HR WATER FLUSH OF 100 EVERY 8 HRS. PT HAS CENTRAL LINE ON RIGHT GROIN 3X LUMEN, SALINE LOCK. PT HAS WOUND ON SACRAL-COCCYX AND LEFT HEEL WOUND. PT IS NOT LOOK GOOD. ALL SAFETY MEASURES IMPLEMENTED. BED WHEELS ON LOCK, BED IN LOW POSITION AND CALL LIGHT WITHIN REACH.
--- NOTE | 2022-08-07 20:29 | NUR ---
CALLED CODE BLUE DUE TO PT HAS NO PULSE.
[2022-08-07] MEDS: INSULIN LANTUS 100 UNITS/ML 10 ML VIAL SUBQ SCH (21:00)
--- NOTE | 2022-08-07 21:03 | NUR ---
LEONIE MEDRANO PRONOUNCE .
--- NOTE | 2022-08-07 21:15 | NUR ---
CALLED [facility] AND TALKED TO MARIO, REPORTED THE PT . ACCORDING TO MARIO, PT IS NOT ELIGIBLE FOR [employer]ATION AND GAVE REFERRAL NUMBER [phone]
--- NOTE | 2022-08-07 21:30 | NUR ---
CALLED [facility] TO REPORT PT'S . TALKED TO TANJA. THEN TANJA TOLD ME WAIT FOR THE DEPUTY TO CALL.
--- NOTE | 2022-08-07 21:33 | NUR ---
RECEIVED CALL FROM [facility], DEPUTY NAMED KJ MENDEZ ASKED SOME QUESTIONS AND SHE TOLD THAT THE PT IS READY TO RELEASE AND CALL THE MORTUARY. NO [employer] CASE NUMBER WAS GIVEN.
--- NOTE | 2022-08-07 21:45 | NUR ---
AT 2028 THOMAS CHIU WAS CALLED. PATIENT ACHIEVED ROSC 3X AND CPR RESUMED 4X. TIME OF WAS CALLED AT 2102 WHEN ROSC COULD NO LONGER BE ACHIEVED.
--- NOTE | 2022-08-07 22:08 | NUR ---
NOTIFIED DR. GARCIA THAT PT AT 549
--- NOTE | 2022-08-07 22:20 | NUR ---
NOTIFIED ADMITTING NAMED TAVON THAT PT AT 2102
--- NOTE | 2022-08-07 23:00 | NUR ---
POSTMORTEM WAS DONE TO PT. CLEANED THE PT'S BODY, REMOVED TUBINGS, PUT DENTURES TO PT AND SHOW IT TO THE RELATIVE AND TO MORTUARY CERTIFIED PROFESSIONAL CONTROLLER. PUT THE PT'S BODY ON THE BAG. PT'S BRACELET WAS GIVEN TO THE PT'S RELATIVE.
--- NOTE | 2022-08-07 23:30 | NUR ---
PT'S BODY WAS POTATO CHIP FRYER BY JOEY GALAVIZ WITH THE RELATIVES. RECORD OF PAPER AND FACE SHEET WAS GIVEN TO JOEY GALAVIZ GRANTS ANALYST.
== END 2022-08-07 21:03 | DRG 4 ==
LOC: MED 09:59 → MIC 14:05 → MTU 07-18 14:15
PROVIDERS: ADMIT Family Medicine; ATTEND Family Medicine
PROC: 5A1955Z Respiratory Ventilation, Greater than 96 Consecutive Hours (ICD-10-PCS; 2022-07-03)
PROC: 0BH17EZ Insertion of Endotracheal Airway into Trachea, Via Natural or Artificial Opening (ICD-10-PCS; 2022-07-03)
PROC: 06HY33Z Insertion of Infusion Device into Lower Vein, Percutaneous Approach (ICD-10-PCS; 2022-07-03)
PROC: 5A1D70Z Performance of Urinary Filtration, Intermittent, Less than 6 Hours Per Day (ICD-10-PCS; 2022-07-03)
PROC: 5A1D70Z Performance of Urinary Filtration, Intermittent, Less than 6 Hours Per Day (ICD-10-PCS; 2022-07-05)
PROC: 5A1D70Z Performance of Urinary Filtration, Intermittent, Less than 6 Hours Per Day (ICD-10-PCS; 2022-07-07)
PROC: 5A1D70Z Performance of Urinary Filtration, Intermittent, Less than 6 Hours Per Day (ICD-10-PCS; 2022-07-09)
PROC: 5A1D70Z Performance of Urinary Filtration, Intermittent, Less than 6 Hours Per Day (ICD-10-PCS; 2022-07-12)
PROC: 5A1D70Z Performance of Urinary Filtration, Intermittent, Less than 6 Hours Per Day (ICD-10-PCS; 2022-07-14)
PROC: 0B110F4 Bypass Trachea to Cutaneous with Tracheostomy Device, Open Approach (ICD-10-PCS; 2022-07-16)
PROC: 5A0935A Assistance with Respiratory Ventilation, Less than 24 Consecutive Hours, High Flow/Velocity Cannula (ICD-10-PCS; 2022-07-16)
PROC: 5A1D70Z Performance of Urinary Filtration, Intermittent, Less than 6 Hours Per Day (ICD-10-PCS; 2022-07-16)
PROC: 0DH63UZ Insertion of Feeding Device into Stomach, Percutaneous Approach (ICD-10-PCS; principal; 2022-07-16 11:00)
PROC: 5A1D70Z Performance of Urinary Filtration, Intermittent, Less than 6 Hours Per Day (ICD-10-PCS; 2022-07-19)
PROC: 5A1D70Z Performance of Urinary Filtration, Intermittent, Less than 6 Hours Per Day (ICD-10-PCS; 2022-07-21)
PROC: 5A1D70Z Performance of Urinary Filtration, Intermittent, Less than 6 Hours Per Day (ICD-10-PCS; 2022-07-23)
PROC: 5A1D70Z Performance of Urinary Filtration, Intermittent, Less than 6 Hours Per Day (ICD-10-PCS; 2022-07-26)
PROC: 5A1D70Z Performance of Urinary Filtration, Intermittent, Less than 6 Hours Per Day (ICD-10-PCS; 2022-07-28)
PROC: 5A1D70Z Performance of Urinary Filtration, Intermittent, Less than 6 Hours Per Day (ICD-10-PCS; 2022-07-30)
PROC: 5A1D70Z Performance of Urinary Filtration, Intermittent, Less than 6 Hours Per Day (ICD-10-PCS; 2022-08-02)
PROC: 5A1D70Z Performance of Urinary Filtration, Intermittent, Less than 6 Hours Per Day (ICD-10-PCS; 2022-08-04)
PROC: 5A1D70Z Performance of Urinary Filtration, Intermittent, Less than 6 Hours Per Day (ICD-10-PCS; 2022-08-06)
DX: A41.9 Sepsis, unspecified organism (principal); J96.01 Acute respiratory failure with hypoxia; J69.0 Pneumonitis due to inhalation of food and vomit; N18.6 End stage renal disease; R65.21 Severe sepsis with septic shock; N17.0 Acute kidney failure with tubular necrosis; G93.41 Metabolic encephalopathy; S22.42XA Multiple fractures of ribs, left side, initial encounter for closed fracture; I12.0 Hypertensive chronic kidney disease with stage 5 chronic kidney disease or end stage renal disease; E87.20 Acidosis, unspecified; D63.8 Anemia in other chronic diseases classified elsewhere; Z20.822 Contact with and (suspected) exposure to COVID-19; E11.22 Type 2 diabetes mellitus with diabetic chronic kidney disease; I95.9 Hypotension, unspecified; D63.1 Anemia in chronic kidney disease; E11.65 Type 2 diabetes mellitus with hyperglycemia; E83.51 Hypocalcemia; R13.11 Dysphagia, oral phase; H54.7 Unspecified visual loss; D69.6 Thrombocytopenia, unspecified; X58.XXXA Exposure to other specified factors, initial encounter; Z99.2 Dependence on renal dialysis; Y93.89 Activity, other specified; Y92.89 Other specified places as the place of occurrence of the external cause; Y99.8 Other external cause status; Z79.4 Long term (current) use of insulin; I46.9 Cardiac arrest, cause unspecified
CPT/HCPCS: 31500; 36415; 36556; 36600; 70450; 71045; 80048; 80053; 80202; 81001; 82140; 82306; 82310; 82550; 82553; 82728; 82803; 82948; 83036; 83540; 83605; 83735; 83874; 83880; 84100; 84484; 85025; 85610; 85730; 86704; 86706; 86708; 86709; 86803; 86870; 86886; 86900; 86901; 87040; 87070; 87081; 87086; 87205; 87340; 89220; 92950; 93005; 94003; 94640; 96365; 96367; 99291; C9113; J1644; J1815; J2001; J2060; J2543; J2920; J3010; J3370; J3480; J3490; J7030; J7060; P9046; Q0092; Q5106